=== PATIENT | female | born 1980 | race Caucasian/White ===

== ENCOUNTER 2020-05-23 14:57 | Outpatient (RCR) | payer MEDICAID, SELFPAY ==
--- NOTE | 2020-05-25 14:09 | MHC.PT.DC ---
[facility] [place] Office [place] Office [place] Office [address] Cat Mukherjee [address] [phone] F: [phone] F: [phone] F: [phone] F: [phone] Physical Therapy Discharge Report Diagnosis: Low back pain Date of Surgery: NA Date of Evaluation: 05/10/20 Date of Discharge: 05/25/20 Treatments to Date: 3 Cancellations to Date: 0 No Shows to Date: 1 Discharge Status: Pt called and elected to stop therapy. She did not give any reason for discharge. She was performing home exercise program for her back at the time of discharge. Discharge Summary: EVAL: 39 year old female referred for rheumatoid arthritis involving multiple sites, unspecified rheumatoid factor presence . She reports of having h/o chronic back pain and has had therapy for the same. She has had no skilled nursing improvements with therapy. Pt has returned to therapy as her pain has gotten intense. She denies any trauma or fall. Examination reveals 6/10 pain at rest and 9/10 pain with prolonged bending and supine lying, TTP over L2- L5 spinous and paraspinal region, decreased trunk ROM, decreased muscle strength, and altered posture. She lives her who helps her with IADLS. She is however independent with all BADLs. She is unemployed. She is a good candidate for PT based on age, goals, physical impairments and functional limitations. She would benefit from PT to decrease pain, improve ROM, increase muscle strength, postural correction,and functional training. Please sign and return to therapist. Thank you for your referral.
== END 2020-06-14 10:48 | disposition other institution (70) ==
LOC: HO.PT 14:57
PROVIDERS: Visit Provider Student in an Organized Health Care Education/Training Program
DX: M54.5 Low back pain (principal)
CPT/HCPCS: 97110

== ENCOUNTER → 2020-08-01 13:37 | Outpatient (BNVA) | payer MEDICAID, SELFPAY | PROVIDERS: PCP Internal Medicine; Visit Provider Student in an Organized Health Care Education/Training Program | DX: Z76.89 Persons encountering health services in other specified circumstances (principal) ==

== ENCOUNTER 2020-09-12 08:46 | Outpatient (REF) | payer MEDICAID, SELFPAY ==
[2020-09-12 09:02] LABS: MANUAL DIFF FLAG NO
[2020-09-12 09:11] LABS: Basophils Absolute Auto 0.1 X10*3/uL (0.0-0.2); Basophils Percent Auto 0.5 % (0-2); Eosinophils Absolute Auto 0.8 X10*3/uL (0.0-0.4); Hematocrit 40.5 % (37-47); Hemoglobin 12.6 g/dl (12.0-16.0); Imm Gran Abs Auto 0.02 X10*3/uL (0.00-0.03); Imm Gran Pct Auto 0.2 % (0.0-0.4); Lymphocytes Absolute Auto 2.9 X10*3/uL (1.2-4.9); Lymphocytes Percent Auto 29.8 % (20-40); Mean Corpuscular HGB Conc 31.1 g/dl (31.0-35.0); Mean Corpuscular Volume 83.5 fL (80-98); Mean Platelet Volume 10.8 fL (9.4-12.3); Monocytes Absolute Auto 0.7 X10*3/uL (0.1-1.2); Monocytes Percent Auto 7.2 % (2-11); Neutrophils Absolute Auto 5.2 X10*3/uL (2.0-8.3); Neutrophils Percent Auto 54.3 % (45-73); Platelet Count 311 X10*3/uL (160-400); Red Blood Count 4.85 X10*6/uL (4.20-5.50); Red Cell Distribution Width 14.1 % (11.0-16.0); White Blood Count 9.6 X10*3/uL (4.8-10.8)
[2020-09-12 09:44] LABS: Alanine Aminotransferase 21 U/L (0-31); Albumin Level 4.3 g/dL (3.5-5.0); Alkaline Phosphatase 64 U/L (39-117); Anion Gap 14 (12-20); Bilirubin Total 0.7 mg/dL (0.0-1.0); Blood Urea Nitrogen 10 mg/dL (9-16); C Reactive Protein 0.31 mg/dL (< or = 0.50); Calcium 9.1 mg/dL (8.4-10.2); Carbon Dioxide 21 mmol/L (22-29); Chloride 107 mmol/L (96-108); Estimated Glomerular Filt Rate > 60; Glucose Random 120 mg/dL (60-115); Sodium 138 mmol/L (135-145); Total Protein 8.1 g/dL (6.5-8.0)
[2020-09-12 09:45] LABS: Aspartate Amino Transferase 17 U/L (5-31)
[2020-09-12 10:17] LABS: Erythrocyte Sedimentation Rate 16 MM/HR (0-20)
== END 2020-09-12 08:47 | disposition home or self-care (01) ==
LOC: HO.LAB 08:46
PROVIDERS: PCP Internal Medicine; Visit Provider Student in an Organized Health Care Education/Training Program
DX: M06.00 Rheumatoid arthritis without rheumatoid factor, unspecified site (principal); R76.8 Other specified abnormal immunological findings in serum; Z79.899 Other long term (current) drug therapy
CPT/HCPCS: 36415; 80053; 85025; 85652; 86140

== ENCOUNTER 2020-11-17 15:04 | Outpatient (REF) | payer MEDICAID, SELFPAY ==
[2020-11-17 16:20] LABS: Basophils Absolute Auto 0.1 X10*3/uL (0.0-0.2); Basophils Percent Auto 0.5 % (0-2); Eosinophils Absolute Auto 0.5 X10*3/uL (0.0-0.4); Eosinophils Percent Auto 3.2 % (0-4); Hematocrit 38.2 % (37-47); Hemoglobin 12.2 g/dl (12.0-16.0); Imm Gran Abs Auto 0.07 X10*3/uL (0.00-0.03); Imm Gran Pct Auto 0.5 % (0.0-0.4); Lymphocytes Absolute Auto 4.5 X10*3/uL (1.2-4.9); Lymphocytes Percent Auto 31.6 % (20-40); MANUAL DIFF FLAG NO; Mean Corpuscular HGB Conc 31.9 g/dl (31.0-35.0); Mean Corpuscular Hemoglobin 26.2 pg (27.0-33.0); Mean Corpuscular Volume 82.2 fL (80-98); Mean Platelet Volume 10.8 fL (9.4-12.3); Monocytes Percent Auto 7.3 % (2-11); Neutrophils Absolute Auto 8.1 X10*3/uL (2.0-8.3); Neutrophils Percent Auto 56.9 % (45-73); Platelet Count 357 X10*3/uL (160-400); Red Blood Count 4.65 X10*6/uL (4.20-5.50); Red Cell Distribution Width 14.7 % (11.0-16.0); White Blood Count 14.2 X10*3/uL (4.8-10.8)
[2020-11-17 16:46] LABS: Alanine Aminotransferase 30 U/L (0-31); Albumin Level 4.4 g/dL (3.5-5.0); Alkaline Phosphatase 65 U/L (39-117); Anion Gap 12 (12-20); Aspartate Amino Transferase 21 U/L (5-31); Bilirubin Total 0.7 mg/dL (0.0-1.0); Blood Urea Nitrogen 15 mg/dL (9-16); Calcium 9.4 mg/dL (8.4-10.2); Carbon Dioxide 26 mmol/L (22-29); Chloride 103 mmol/L (96-108); Estimated Glomerular Filt Rate 56; Glucose Random 96 mg/dL (60-115); Potassium 4.8 mmol/L (3.3-5.1); Sodium 136 mmol/L (135-145); Total Protein 8.3 g/dL (6.5-8.0)
[2020-11-17 17:58] LABS: Erythrocyte Sedimentation Rate 11 MM/HR (0-20)
== END 2020-11-17 15:05 | disposition home or self-care (01) ==
LOC: HO.LAB 15:04
PROVIDERS: Visit Provider Student in an Organized Health Care Education/Training Program
DX: M06.00 Rheumatoid arthritis without rheumatoid factor, unspecified site (principal); R76.8 Other specified abnormal immunological findings in serum; Z79.52 Long term (current) use of systemic steroids; Z79.899 Other long term (current) drug therapy
CPT/HCPCS: 36415; 80053; 85025; 85652; 86140; 99212

== ENCOUNTER → 2020-12-20 08:31 | Outpatient (REF) | payer MEDICAID, SELFPAY ==
--- NOTE | ~2020-12-20 | NM_ITS ---
Exercise Myocardial perfusion study Indication: Shortness of breath to evaluate for myocardial ischemia Technique: The patient was brought in for an exercise perfusion study on 12/20/2020. Patient performed exercise as per Darwin protocol and was injected 30 mCi of sestamibi was given intravenously one target HR was achieved. Images were obtained using the SPECT gamma camera interlaced with the gating device. Images were obtained in supine position. Resting perfusion study was performed on 12/21/2020. Patient was administered 30 mCi of sestamibi intravenously at rest. Images were then obtained in supine position. Images were obtained with and without CT attenuation. Total DLP 118 mGy-cm. Images were processed with the software and compared side to side in short axis, horizontal long axis and vertical long axis views. Findings: The stress perfusion study showed non attenuated images show mildly reduced uptake in the anterolateral wall of the LV myocardium. Remainder of the LV myocardium is normally perfused. Attenuation corrected images show normal uptake of radiotracer in all segments of LV myocardium.. The gated study shows normal LV systolic function with calculated LVEF of 61%. LV cavity is normal in size. The gated study shows normal systolic wall thickening and contraction of all segments. There is no transient ischemic dilation. Resting study shows non attenuated images show normal uptake of radiotracer in all segments of LV myocardium. Attenuation corrected images show mildly reduced uptake in the septum and distal anterior wall of the LV myocardium.. Gating at rest reveals normal systolic wall motion with ejection fraction at 53%. The findings are consistent with no clear reversible defect, not attenuated images repeated due to shifting breast attenuation.. NM/NM boston perf SPECT rest & str Impression: 1. Likely normal myocardial perfusion 2. Gated LVEF is 61% 3. Transient ischemic dilatation not present Stress EKG is negative for ischemia
--- NOTE | 2020-12-20 08:30 | CA_ITS ---
Acquisition Time: 2020-12-20 08:53:10 Total Exercise Time: 00:05:30 Test Indications: Dyspnea Medications: SE CHART Protocol: DESMOND Max HR: 164 BPM 92% of Pred: 178 BPM Max BP: 140/080 mmHG Max Work Load: 7.0 METS Exercise stress test with exercise 5 min 30 sec of Desmond protocol with mild sob, no chest discomfort, without arrythmia, with normotensive response to exercise, without EKG changes meeting criteria for ischemia. Nuclear imaes pending. Test reviewed with Dr Colbert. Referred By: Prakash Alvarez Overread By: MIRTA LU
== END ==
LOC: HO.CARD 08:31
PROVIDERS: Visit Provider Internal Medicine Cardiovascular Disease
DX: R06.02 Shortness of breath (principal)
CPT/HCPCS: 78452; 93016; 93017; 93018; A9500

== ENCOUNTER 2021-02-15 09:07 | Outpatient (REF) | payer MEDICAID, SELFPAY ==
--- NOTE | 2021-02-15 | PFT_ITS ---
Forced vital capacity, FEV1, QPO74-91, and MVV are all normal. Post bronchodilator therapy, there is no significant change except for increase in TOD80-34. Total lung capacity and residual volume normal. Diffusion capacity normal. CONCLUSION: Normal pulmonary function tests. There is no evidence of any restrictive or obstructive pulmonary disorder. Accelerated response to bronchodilator as shown by improved [id number] may indicate mild reactive airways or bronchial asthma. For this, clinical correlation is recommended. Nito Stallings MD MSB/MODL / [id number]
== END 2021-02-15 09:08 | disposition home or self-care (01) ==
LOC: HO.RESP 09:07
PROVIDERS: PCP Internal Medicine; Visit Provider Internal Medicine
DX: R06.02 Shortness of breath (principal)
CPT/HCPCS: 94060; 94727; 94729

== ENCOUNTER 2021-02-16 15:00 | Outpatient (REF) | payer MEDICAID, SELFPAY ==
--- NOTE | ~2021-02-16 | XR_ITS ---
EXAMINATION: XR HAND, RIGHT CLINICAL INFORMATION: Rheumatoid arthritis without rheumatoid factor COMPARISON: 10/29/2019 TECHNIQUE: PA, lateral, and oblique views of the right hand. FINDINGS: There is diffuse narrowing throughout the carpus. Moderate radiocarpal joint space narrowing. There is narrowing of the distal radioulnar joint. Small cyst of the third metacarpal head again seen. Cyst in the lunate again noted. No erosions or periostitis seen. Mild osteoarthritis of the second distal interphalangeal joint. Interphalangeal and metacarpophalangeal joint spaces are otherwise maintained. No fracture or dislocation. XR/XR hand RT min 3V IMPRESSION: Similar appearance to the prior study with multifocal degenerative changes.
[2021-02-16 15:53] LABS: MANUAL DIFF FLAG NO
[2021-02-16 15:56] LABS: Basophils Absolute Auto 0.1 X10*3/uL (0.0-0.2); Basophils Percent Auto 0.6 % (0-2); Eosinophils Absolute Auto 0.5 X10*3/uL (0.0-0.4); Eosinophils Percent Auto 4.9 % (0-4); Hematocrit 37.2 % (37-47); Hemoglobin 11.6 g/dl (12.0-16.0); Imm Gran Abs Auto 0.03 X10*3/uL (0.00-0.03); Imm Gran Pct Auto 0.3 % (0.0-0.4); Lymphocytes Absolute Auto 3.3 X10*3/uL (1.2-4.9); Lymphocytes Percent Auto 32.5 % (20-40); Mean Corpuscular HGB Conc 31.2 g/dl (31.0-35.0); Mean Corpuscular Hemoglobin 25.6 pg (27.0-33.0); Mean Corpuscular Volume 81.9 fL (80-98); Mean Platelet Volume 10.2 fL (9.4-12.3); Monocytes Absolute Auto 0.8 X10*3/uL (0.1-1.2); Monocytes Percent Auto 7.4 % (2-11); Neutrophils Absolute Auto 5.6 X10*3/uL (2.0-8.3); Neutrophils Percent Auto 54.3 % (45-73); Platelet Count 337 X10*3/uL (160-400); Red Blood Count 4.54 X10*6/uL (4.20-5.50); Red Cell Distribution Width 14.4 % (11.0-16.0); White Blood Count 10.3 X10*3/uL (4.8-10.8)
[2021-02-16 16:20] LABS: Alanine Aminotransferase 33 U/L (0-31); Albumin Level 4.3 g/dL (3.5-5.0); Alkaline Phosphatase 63 U/L (39-117); Anion Gap 15 (12-20); Aspartate Amino Transferase 23 U/L (5-31); Bilirubin Total 0.6 mg/dL (0.0-1.0); Blood Urea Nitrogen 9 mg/dL (9-16); C Reactive Protein 0.23 mg/dL (< or = 0.50); Calcium 9.8 mg/dL (8.4-10.2); Carbon Dioxide 23 mmol/L (22-29); Chloride 106 mmol/L (96-108); Estimated Glomerular Filt Rate > 60; Glucose Random 99 mg/dL (60-115); Potassium 4.6 mmol/L (3.3-5.1); Sodium 139 mmol/L (135-145); Total Protein 8.1 g/dL (6.5-8.0)
== END 2021-02-16 15:01 | disposition home or self-care (01) ==
LOC: HO.XRAY 15:00
PROVIDERS: PCP Internal Medicine; Visit Provider Student in an Organized Health Care Education/Training Program
DX: M06.00 Rheumatoid arthritis without rheumatoid factor, unspecified site (principal); R76.8 Other specified abnormal immunological findings in serum; Z79.52 Long term (current) use of systemic steroids; Z79.899 Other long term (current) drug therapy
CPT/HCPCS: 36415; 73130; 80053; 85025; 86140; 99212

== ENCOUNTER → 2021-04-18 12:53 | Outpatient (BNVA) | payer MEDICAID, SELFPAY | PROVIDERS: PCP Internal Medicine; Visit Provider Nurse Practitioner Family | DX: M06.00 Rheumatoid arthritis without rheumatoid factor, unspecified site (principal); M54.5 Low back pain; R76.8 Other specified abnormal immunological findings in serum; Z79.899 Other long term (current) drug therapy; Z79.52 Long term (current) use of systemic steroids | CPT/HCPCS: 99212 ==

== ENCOUNTER 2021-05-09 09:44 | Outpatient (REF) | payer MEDICAID, SELFPAY ==
[2021-05-09 10:53] LABS: MANUAL DIFF FLAG NO
[2021-05-09 11:00] LABS: Basophils Absolute Auto 0.1 X10*3/uL (0.0-0.2); Basophils Percent Auto 0.6 % (0-2); Eosinophils Absolute Auto 0.4 X10*3/uL (0.0-0.4); Eosinophils Percent Auto 3.6 % (0-4); Hematocrit 37.7 % (37-47); Hemoglobin 11.8 g/dl (12.0-16.0); Imm Gran Abs Auto 0.03 X10*3/uL (0.00-0.03); Imm Gran Pct Auto 0.3 % (0.0-0.4); Lymphocytes Absolute Auto 3.1 X10*3/uL (1.2-4.9); Lymphocytes Percent Auto 30.6 % (20-40); Mean Corpuscular HGB Conc 31.3 g/dl (31.0-35.0); Mean Corpuscular Hemoglobin 25.4 pg (27.0-33.0); Mean Corpuscular Volume 81.1 fL (80-98); Mean Platelet Volume 10.5 fL (9.4-12.3); Monocytes Absolute Auto 0.7 X10*3/uL (0.1-1.2); Monocytes Percent Auto 6.7 % (2-11); Neutrophils Percent Auto 58.2 % (45-73); Platelet Count 326 X10*3/uL (160-400); Red Blood Count 4.65 X10*6/uL (4.20-5.50); Red Cell Distribution Width 14.6 % (11.0-16.0); White Blood Count 10.3 X10*3/uL (4.8-10.8)
[2021-05-09 11:22] LABS: Alanine Aminotransferase 36 U/L (0-31); Albumin Level 4.3 g/dL (3.5-5.0); Alkaline Phosphatase 65 U/L (39-117); Anion Gap 13 (12-20); Aspartate Amino Transferase 22 U/L (5-31); Bilirubin Total 0.5 mg/dL (0.0-1.0); Blood Urea Nitrogen 7 mg/dL (9-16); C Reactive Protein 0.25 mg/dL (< or = 0.50); Calcium 9.8 mg/dL (8.4-10.2); Carbon Dioxide 24 mmol/L (22-29); Chloride 104 mmol/L (96-108); Estimated Glomerular Filt Rate > 60; Glucose Random 114 mg/dL (60-115); Potassium 4.2 mmol/L (3.3-5.1); Sodium 137 mmol/L (135-145); Total Protein 7.9 g/dL (6.5-8.0)
[2021-05-09 11:47] LABS: Erythrocyte Sedimentation Rate 13 MM/HR (0-20)
== END 2021-05-09 09:45 | disposition home or self-care (01) ==
LOC: HO.LAB 09:44
PROVIDERS: PCP Internal Medicine; Visit Provider Nurse Practitioner Family
DX: M06.00 Rheumatoid arthritis without rheumatoid factor, unspecified site (principal)
CPT/HCPCS: 36415; 80053; 85025; 85652; 86140

== ENCOUNTER → 2022-08-27 09:04 | Outpatient (BNVA) | payer MEDICAID, SELFPAY | PROVIDERS: PCP Internal Medicine; Visit Provider Nurse Practitioner Family | DX: M06.00 Rheumatoid arthritis without rheumatoid factor, unspecified site (principal); R76.8 Other specified abnormal immunological findings in serum; G89.29 Other chronic pain; M54.50 Low back pain, unspecified; Z79.899 Other long term (current) drug therapy | CPT/HCPCS: 36415; 80053; 85025; 85652; 86140; 99202 ==

== ENCOUNTER 2022-08-27 10:34 | Outpatient (REF) | payer MEDICAID, SELFPAY ==
[2022-08-27 13:50] LABS: MANUAL DIFF FLAG NO
[2022-08-27 14:04] LABS: Basophils Absolute Auto 0.1 X10*3/uL (0.0-0.2); Basophils Percent Auto 0.8 % (0-2); Eosinophils Absolute Auto 0.8 X10*3/uL (0.0-0.4); Eosinophils Percent Auto 8.8 % (0-4); Hematocrit 40.3 % (37.0-47.0); Hemoglobin 12.2 g/dl (12.0-16.0); Imm Gran Abs Auto 0.03 X10*3/uL (0.00-0.03); Imm Gran Pct Auto 0.3 % (0.0-0.4); Lymphocytes Percent Auto 33.2 % (20-40); Mean Corpuscular HGB Conc 30.3 g/dl (31.0-35.0); Mean Corpuscular Hemoglobin 24.4 pg (27.0-33.0); Mean Corpuscular Volume 80.8 fL (80.0-98.0); Mean Platelet Volume 13.8 fL (9.4-12.3); Monocytes Absolute Auto 0.6 X10*3/uL (0.1-1.2); Monocytes Percent Auto 6.7 % (2-11); Neutrophils Absolute Auto 4.5 x10*3/uL (2.0-8.3); Neutrophils Percent Auto 50.2 % (45-73); Platelet Count 291 X10*3/uL (160-400); Red Blood Count 4.99 X10*6/uL (4.20-5.50); Red Cell Distribution Width 15.5 % (11.0-16.0)
[2022-08-27 14:24] LABS: Alanine Aminotransferase 30 U/L (0-31); Albumin Level 4.2 g/dL (3.5-5.0); Alkaline Phosphatase 63 U/L (39-117); Anion Gap 13 (12-20); Aspartate Amino Transferase 25 U/L (5-31); Bilirubin Total 0.4 mg/dL (0.0-1.0); Blood Urea Nitrogen 10 mg/dL (9-16); C Reactive Protein 0.17 mg/dL (< or = 0.50); Carbon Dioxide 23 mmol/L (22-29); Chloride 107 mmol/L (96-108); Estimated Glomerular Filt Rate > 60; Glucose Random 90 mg/dL (60-115); Potassium 4.4 mmol/L (3.3-5.1); Sodium 139 mmol/L (135-145)
[2022-08-27 14:42] LABS: Erythrocyte Sedimentation Rate 16 MM/HR (0-20)
== END 2022-08-27 10:35 | disposition home or self-care (01) ==
LOC: HO.10HDL 10:34
PROVIDERS: Visit Provider Nurse Practitioner Family
DX: M06.00 Rheumatoid arthritis without rheumatoid factor, unspecified site (principal); M54.50 Low back pain, unspecified; R76.8 Other specified abnormal immunological findings in serum
CPT/HCPCS: 36415; 80053; 85025; 85652; 86140

== ENCOUNTER 2022-09-10 09:10 | Outpatient (REF) | payer MEDICAID, SELFPAY ==
--- NOTE | ~2022-09-10 | XR_ITS ---
EXAMINATION: XR LUMBOSACRAL SPINE CLINICAL INFORMATION: Low back pain COMPARISON: None TECHNIQUE: Three views of the lumbosacral spine. FINDINGS: There is normal lumbar lordosis. The vertebral heights, alignment and disc heights are normal. No visible acute fracture, dislocation or subluxation seen. No lytic or sclerotic process seen. SI joints are symmetrical and normal. XR/XR lumbar spine 2-3V IMPRESSION: Unremarkable lumbar spine exam.
== END 2022-09-10 09:11 | disposition home or self-care (01) ==
LOC: HO.XRAY 09:10
PROVIDERS: PCP Internal Medicine; Visit Provider Nurse Practitioner Family
DX: M54.50 Low back pain, unspecified (principal)
CPT/HCPCS: 72100

== ENCOUNTER → 2022-10-23 13:54 | Outpatient (BNVA) | payer MEDICAID, SELFPAY | PROVIDERS: PCP Internal Medicine; Visit Provider Nurse Practitioner Family | DX: M06.00 Rheumatoid arthritis without rheumatoid factor, unspecified site (principal); M54.50 Low back pain, unspecified; Z79.899 Other long term (current) drug therapy | CPT/HCPCS: 99212 ==

== ENCOUNTER 2022-10-30 10:05 | Outpatient (REF) | payer MEDICAID, SELFPAY ==
[2022-10-30 11:28] LABS: Alanine Aminotransferase 27 U/L (0-31); Albumin Level 4.1 g/dL (3.5-5.0); Alkaline Phosphatase 69 U/L (39-117); Anion Gap 11 (12-20); Aspartate Amino Transferase 22 U/L (5-31); Bilirubin Total 0.5 mg/dL (0.0-1.0); Blood Urea Nitrogen 7 mg/dL (9-16); Calcium 9.1 mg/dL (8.4-10.2); Carbon Dioxide 26 mmol/L (22-29); Chloride 105 mmol/L (96-108); Estimated Glomerular Filt Rate > 60; Glucose Random 122 mg/dL (60-115); Potassium 4.1 mmol/L (3.3-5.1); Sodium 138 mmol/L (135-145); Total Protein 7.8 g/dL (6.5-8.0)
[2022-10-30 11:40] LABS: HBc Num1 0.22 S/CO (0.00-0.79); HBsAGNum1 0.29 S/CO (0.00-0.99); Hepatitis B Core Antibody Nonreactive (Nonreactive); Hepatitis B Surface Antigen Negative (Negative); ~HepC Num1 0.14 S/CO (0.00-0.79); ~Hepatitis A Antibody IgM Nonreactive (Nonreactive); ~Hepatitis B Surface Antibody NONREACTIVE (Nonreactive); ~Hepatitis C Antibody Nonreactive (Nonreactive)
[2022-11-01 17:13] LABS: TS Negative Control Passed; TS Panel A 0; TS Panel B 0; TS Positive Control Passed; TSpotTB Negative (Negative)
== END 2022-10-30 10:06 | disposition home or self-care (01) ==
LOC: HO.LAB 10:05
PROVIDERS: PCP Internal Medicine; Visit Provider Nurse Practitioner Family
DX: Z11.1 Encounter for screening for respiratory tuberculosis (principal); M06.00 Rheumatoid arthritis without rheumatoid factor, unspecified site
CPT/HCPCS: 36415; 80053; 86481; 86704; 86706; 86709; 86803; 87340

== ENCOUNTER 2022-12-05 10:25 | Outpatient (REF) | payer MEDICAID, SELFPAY ==
[2022-12-05 10:36] LABS: MANUAL DIFF FLAG NO
[2022-12-05 10:55] LABS: Basophils Absolute Auto 0.1 X10*3/uL (0.0-0.2); Basophils Percent Auto 0.7 % (0-2); Eosinophils Absolute Auto 0.7 X10*3/uL (0.0-0.4); Eosinophils Percent Auto 8.2 % (0-4); Hematocrit 38.5 % (37.0-47.0); Hemoglobin 11.8 g/dl (12.0-16.0); Imm Gran Abs Auto 0.03 X10*3/uL (0.00-0.03); Imm Gran Pct Auto 0.4 % (0.0-0.4); Lymphocytes Percent Auto 35.4 % (20-40); Mean Corpuscular HGB Conc 30.6 g/dl (31.0-35.0); Mean Corpuscular Hemoglobin 24.4 pg (27.0-33.0); Mean Corpuscular Volume 79.5 fL (80.0-98.0); Mean Platelet Volume 10.8 fL (9.4-12.3); Monocytes Absolute Auto 0.6 X10*3/uL (0.1-1.2); Monocytes Percent Auto 7.5 % (2-11); Neutrophils Percent Auto 47.8 % (45-73); Platelet Count 335 X10*3/uL (160-400); Red Blood Count 4.84 X10*6/uL (4.20-5.50); Red Cell Distribution Width 14.8 % (11.0-16.0); White Blood Count 8.4 X10*3/uL (4.8-10.8)
[2022-12-05 11:30] LABS: Alanine Aminotransferase 27 U/L (0-31); Aspartate Amino Transferase 20 U/L (5-31); C Reactive Protein 0.22 mg/dL (< or = 0.50); Estimated Glomerular Filt Rate > 60
[2022-12-05 11:47] LABS: Erythrocyte Sedimentation Rate 16 MM/HR (0-20)
== END 2022-12-05 10:26 | disposition home or self-care (01) ==
LOC: HO.LAB 10:25
PROVIDERS: PCP Internal Medicine; Visit Provider Nurse Practitioner Family
DX: M06.00 Rheumatoid arthritis without rheumatoid factor, unspecified site (principal); Z79.899 Other long term (current) drug therapy
CPT/HCPCS: 36415; 82565; 84450; 84460; 85025; 85652; 86140

== ENCOUNTER → 2023-01-28 08:51 | Outpatient (BNVA) | payer MEDICAID, SELFPAY | PROVIDERS: PCP Internal Medicine; Visit Provider Internal Medicine Rheumatology | DX: M06.00 Rheumatoid arthritis without rheumatoid factor, unspecified site (principal); Z79.899 Other long term (current) drug therapy | CPT/HCPCS: 99212 ==

== ENCOUNTER 2023-01-28 09:34 | Outpatient (REF) | payer MEDICAID, SELFPAY ==
[2023-01-28 11:05] LABS: MANUAL DIFF FLAG NO
[2023-01-28 11:09] LABS: Basophils Absolute Auto 0.1 X10*3/uL (0.0-0.2); Basophils Percent Auto 0.9 % (0-2); Eosinophils Absolute Auto 0.4 X10*3/uL (0.0-0.4); Eosinophils Percent Auto 4.4 % (0-4); Hematocrit 36.2 % (37.0-47.0); Hemoglobin 11.3 g/dl (12.0-16.0); Imm Gran Abs Auto 0.02 X10*3/uL (0.00-0.03); Imm Gran Pct Auto 0.2 % (0.0-0.4); Lymphocytes Absolute Auto 2.6 X10*3/uL (1.2-4.9); Lymphocytes Percent Auto 32.8 % (20-40); Mean Corpuscular HGB Conc 31.2 g/dl (31.0-35.0); Mean Corpuscular Hemoglobin 24.7 pg (27.0-33.0); Mean Corpuscular Volume 79.2 fL (80.0-98.0); Mean Platelet Volume 12.4 fL (9.4-12.3); Monocytes Absolute Auto 0.6 X10*3/uL (0.1-1.2); Monocytes Percent Auto 7.5 % (2-11); Neutrophils Absolute Auto 4.4 x10*3/uL (2.0-8.3); Neutrophils Percent Auto 54.2 % (45-73); Platelet Count 334 X10*3/uL (160-400); Red Blood Count 4.57 X10*6/uL (4.20-5.50); Red Cell Distribution Width 15.9 % (11.0-16.0)
[2023-01-28 11:23] LABS: Alanine Aminotransferase 26 U/L (0-31); Aspartate Amino Transferase 20 U/L (5-31); C Reactive Protein 0.15 mg/dL (< or = 0.50); Estimated Glomerular Filt Rate > 60
[2023-01-28 11:52] LABS: Erythrocyte Sedimentation Rate 13 MM/HR (0-20)
== END 2023-01-28 09:35 | disposition home or self-care (01) ==
LOC: HO.10HDL 09:34
PROVIDERS: Visit Provider Internal Medicine Rheumatology
DX: M06.00 Rheumatoid arthritis without rheumatoid factor, unspecified site (principal); Z79.899 Other long term (current) drug therapy
CPT/HCPCS: 36415; 82565; 84450; 84460; 85025; 85652; 86140

== ENCOUNTER 2023-02-20 12:38 | Outpatient (REF) | payer MEDICAID, SELFPAY | END 2023-02-20 12:39 | disposition home or self-care (01) | LOC: HO.MRI 12:38 | PROVIDERS: PCP Internal Medicine; Visit Provider Internal Medicine | DX: M54.50 Low back pain, unspecified (principal) | CPT/HCPCS: 72148 ==

== ENCOUNTER 2023-02-24 09:18 | Outpatient (REF) | payer MEDICAID, SELFPAY ==
--- NOTE | ~2023-02-24 | MM_ITS ---
EXAMINATION: MM SCREENING DIGITAL BREAST TOMOSYNTHESIS, BILATERAL CLINICAL INFORMATION: Screening. Asymptomatic. The lifetime risk of breast cancer based on the Tyrer-Cuzick Model is 10.6%. COMPARISON: Mammography: This study is compared with prior exams dating back to 2019. TECHNIQUE: Digital breast tomosynthesis is performed in both the craniocaudal and mediolateral oblique views along with computer-aided detection (CAD). Synthesized 2D images are generated from the tomosynthesis. FINDINGS: There are scattered areas of fibroglandular density (ACR BI-RADS breast composition Category b). There are no significant masses, abnormal calcifications, or other abnormalities. MM/MM tomosynthesis screening BI IMPRESSION: No mammographic evidence of malignancy. ASSESSMENT: BI-RADS BI-RADS 1 - Negative RECOMMENDATION: Routine annual mammography screening. 1 year F/U This examination should not preclude the clinical evaluation of a suspicious palpable abnormality. This patient's information was entered into a reminder system with a target due date for their next mammogram.
== END 2023-02-24 09:19 | disposition home or self-care (01) ==
LOC: HO.MAMMO 09:18
PROVIDERS: PCP Internal Medicine; Visit Provider Internal Medicine
DX: Z12.31 Encounter for screening mammogram for malignant neoplasm of breast (principal)
CPT/HCPCS: 77063; 77067

== ENCOUNTER → 2023-02-24 09:30 | Outpatient (BNV) | payer MEDICAID, SELFPAY | PROVIDERS: PCP Internal Medicine; Visit Provider Radiology Diagnostic Radiology | DX: Z12.31 Encounter for screening mammogram for malignant neoplasm of breast (principal) | CPT/HCPCS: 77063; 77067 ==

== ENCOUNTER 2023-05-30 09:38 | Outpatient (REF) | payer MEDICAID, SELFPAY ==
[2023-05-30 11:45] LABS: MANUAL DIFF FLAG NO
[2023-05-30 11:56] LABS: Basophils Absolute Auto 0.1 X10*3/uL (0.0-0.2); Basophils Percent Auto 0.7 % (0-2); Eosinophils Absolute Auto 0.4 X10*3/uL (0.0-0.4); Eosinophils Percent Auto 5.5 % (0-4); Hematocrit 36.3 % (37.0-47.0); Hemoglobin 10.9 g/dl (12.0-16.0); Imm Gran Abs Auto 0.02 X10*3/uL (0.00-0.03); Imm Gran Pct Auto 0.3 % (0.0-0.4); Lymphocytes Absolute Auto 2.7 X10*3/uL (1.2-4.9); Lymphocytes Percent Auto 37.3 % (20-40); Mean Corpuscular Hemoglobin 23.6 pg (27.0-33.0); Mean Corpuscular Volume 78.6 fL (80.0-98.0); Mean Platelet Volume 12.7 fL (9.4-12.3); Monocytes Absolute Auto 0.5 X10*3/uL (0.1-1.2); Monocytes Percent Auto 7.4 % (2-11); Neutrophils Absolute Auto 3.5 x10*3/uL (2.0-8.3); Neutrophils Percent Auto 48.8 % (45-73); Platelet Count 315 X10*3/uL (160-400); Red Blood Count 4.62 X10*6/uL (4.20-5.50); Red Cell Distribution Width 15.4 % (11.0-16.0); White Blood Count 7.2 X10*3/uL (4.8-10.8)
[2023-05-30 12:16] LABS: C Reactive Protein 0.13 mg/dL (< or = 0.50)
[2023-05-30 12:42] LABS: Erythrocyte Sedimentation Rate 12 MM/HR (0-20)
== END 2023-05-30 09:39 | disposition home or self-care (01) ==
LOC: HO.10HDL 09:38
PROVIDERS: Visit Provider Internal Medicine Rheumatology
DX: M06.00 Rheumatoid arthritis without rheumatoid factor, unspecified site (principal); Z79.899 Other long term (current) drug therapy
CPT/HCPCS: 36415; 85025; 85652; 86140

== ENCOUNTER 2023-06-02 09:22 | Outpatient (AMB) | payer MEDICAID, SELFPAY ==
--- NOTE | 2023-06-02 09:31 | MHC.OFFVIS ---
Intake Vital Signs 06/02/23 09:32 Height 4 ft 11 in Weight 179 lb 14.355 oz BMI 36.3 BP 140/80 H Blood Pressure Location Rt brachial Position Sitting Pulse 78 Pulse Source Pulse Oximeter Temp 98.1 F Temp Source Skin Pulse Oximetry (%) 96 Oxygen Delivery Method Room Air Intake Visit Reasons: ra Intake Note: Patient presents today to follow up on RA. 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 Name: Bi Morgan Information Interpreted: clinical only Accompanied by: Self / Same As Patient Allergies gabapentin Adverse Reaction (Intermediate, Verified 06/02/23 09:37) Gastrointestinal Upset Medication List - Last Reconciled 06/02/23 by Nate Boyer MD alcohol swabs (Alcohol Prep Pads) 0 pad topical BID amitriptyline 10 mg PO BEDTIME atorvastatin 40 mg PO BEDTIME baclofen 10 mg PO BID blood sugar diagnostic (FreeStyle Lite Strips) As directed cholecalciferol (vitamin D3) (Vitamin D3) 50 mcg PO QPM etanercept (Enbrel SureClick) 50 mg subcut QWEEK ferrous sulfate (FeroSul) 325 mg PO QAM fluticasone propionate 110 mcg/actuation (Flovent HFA) 2 puffs inhalation BID folic acid 1 mg PO QAM hydrochlorothiazide 25 mg PO QAM hydroxychloroquine 200 mg PO QAM hydroxyzine HCl 50 mg PO lidocaine 5% (Lidoderm) 0 patches topical metformin 500 mg PO BID methotrexate sodium 20 mg (8 x 2.5 mg) PO QWEEK omeprazole 40 mg PO QAM venlafaxine ER 75 mg PO QAM HPI HPI Comments History of Present Illness Details The patient returns for evaluation of her rheumatoid arthritis. She remains on hydroxychloroquine 200 mg twice a day, folic acid 1 mg daily, methotrexate 20 mg weekly and Enbrel 50 mg weekly. In general the joints are doing fairly well but there still is intermittent pain in the hands, mostly across the PIP regions, the knees, and the lower back. She also takes some amitriptyline at night, baclofen during the day if needed, lidocaine patches, and venlafaxine. She has some iron deficiency anemia but is on iron. She was evaluated for this by her PCP and they think it is due to extra heavy bleeding during menses. [facility] Medical History (Updated 06/02/23 @ 18:25 by Nate Boyer MD) PERRY positive Seronegative rheumatoid arthritis Surgical History Hx of tubal ligation Family History Father Diabetes Rheumatoid arthritis CVD (cardiovascular disease) Mother Diabetes Pulmonary embolism Social History Household Members: Other Household Members Other:: daughter Housing: Apartment Alcohol intake: current Patient Tobacco Use Status: Never used Tobacco Review of Systems Const Details: Negative for appetite change, weight change, fever, chills, malaise and fatigue Eyes Details: Negative for vision change, dry eyes,headaches and dizziness Card Details: Negative chest pain, edema and syncope Resp Details: Negative for SOB, cough and wheezing GI Details: Negative indigestion/heartburn, nausea, abdominal pain, bowel changes, diarrhea, constipation and bloody stool. Details: Prolonged menses with bleeding. Negative for dysuria, hematuria, nocturia, decreased force/flow and genital discharge Gibson/Lymph Details: Negative for excessive bruising or bleeding. Physical Exam Vital Signs: Last Vital Signs Temp 98.1 F 06/02/23 09:32 Pulse 78 06/02/23 09:32 BP 140/80 H 06/02/23 09:32 Pulse Ox 96 06/02/23 09:32 Oxygen Delivery Method Room Air 06/02/23 09:32 BMI result Body Mass Index 36.3 APPEARANCE: Patient in no acute distress EXTREMITIES: No edema, no calf tenderness, normal peripheral pulses. JOINT EXAM: ?? Cervical Spine:? Full range of motion without pain; no tenderness. Thoracic Spine:? No scoliosis.? No tenderness on palpation. Lumbar Spine:? Alignment normal.? Full range of motion with mild pain at the extremes.? Tenderness to palpation of the lumbar spine and lumbar spinal muscles. Hands: Right: Pain-free range of motion but there is mild tenderness across the MCP and PIP regions. No flexor tendon triggering, soft tissue swelling, thenar atrophy, sensory loss redness, or warmth. Left: Normal pain-free range of motion with some mild tenderness at the 4th and 5th MCPs but no swelling is appreciated. Elsewhere there is no out tenderness, swelling, increased warmth or erythema. Wrists:? LEFT: Mild pain with flexion or extension at 75 degrees with some slight dorsal tenderness but no swelling, increased warmth or erythema. ? RIGHT:? Mild pain with flexion or extension at 80 degrees.? Slight tenderness to palpation in the center of the wrist.? No swelling, increased warmth or erythema. Elbows: Normal pain-free range of motion without tenderness, swelling, increased warmth or erythema. Shoulders:? Full range of motion without pain. No tenderness, weakness, swelling, increased warmth or erythema. Hips:? Full range of motion with some lumbar pain with extremes of abduction, internal rotation or external rotation. No groin pain with motion. Hip bursa:? No tenderness. Knees:?? Normal pain-free range of motion with mild pain at the extremes. She has some valgus deformity in the knees on both sides. There is some slight medial compartment tenderness bilaterally with some minimal patellofemoral crepitus on the left. No effusions, soft tissue swelling, popliteal tenderness, increased warmth or erythema.? Ankles: Normal pain-free range of motion without tenderness, swelling, increased warmth or erythema. Feet:?Normal pain-free range of motion without tenderness, swelling, increased warmth or erythema. Tender points:? Mild tenderness to digital palpation at the trapezius, second rib, lateral epicondyle, gluteal area bilaterally. ? Results Reviewed Results Reviewed: Laboratory Tests 01/28/23 01/28/23 05/30/23 09:40 09:40 09:35 WBC Hgb ESR 12 Creatinine 0.79 AST 20 ALT 26 C-Reactive Protein 0.15 05/30/23 05/30/23 09:35 09:45 WBC 7.2 Hgb 10.9 L ESR Creatinine AST ALT C-Reactive Protein 0.13 Assessment & Plan Assessment & Plan (1) skilled nursing methotrexate user: Code(s): Z79.899 - Other detention (current) drug therapy (2) Osteoarthritis of lumbar spine: Code(s): M47.816 - Spondylosis without myelopathy or radiculopathy, lumbar region (3) Seronegative rheumatoid arthritis: Comment: Methotrexate: Since 2011. 11/2019 6 tabs, increased to 8 tabs 01/2020- present Humira: 04/2020 - 11/2020 active synovitis on exam Enbrel: 11/2020- present Plaquenil- 2019- present, eye exam 09/09 Code(s): M06.00 - Rheumatoid arthritis without rheumatoid factor, unspecified site Plan Rheumatoid arthritis with I think good control of synovitis with current treatment. She does have a number of tender points so could have some element of fibromyalgia as well. Her back symptoms are fro lumbar OA. She has some valgus deformity in the knees which could predispose her to osteoarthritis of the knees in the future. I encouraged her to pursue some efforts with weight reduction to try to minimize that possibility. She seems to be tolerating the methotrexate as the lab work looks good. She has also had an eye exam earlier this year so I think she could continue her hydroxycloroquine as above. Another set of lab work would be recommended for July and September. We will arrange for follow-up in Rheumatology in 4 months. 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 Erythrocyte Sedimentation Rate 1 Month M06.00 - Rheumatoid arthritis without rheumatoid factor, unspecified site Erythrocyte Sedimentation Rate Today M06.00 - Rheumatoid arthritis without rheumatoid factor, unspecified site C Reactive Protein Today M06.00 - Rheumatoid arthritis without rheumatoid factor, unspecified site Alanine Aminotransferase Today M06.00 - Rheumatoid arthritis without rheumatoid factor, unspecified site, Z79.899 - Other detention (current) drug therapy Complete Blood Count Auto Diff Today M06.00 - Rheumatoid arthritis without rheumatoid factor, unspecified site, Z79.899 - Other 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 school teacher (current) drug therapy Alanine Aminotransferase 1 Month M06.00 - Rheumatoid arthritis without rheumatoid factor, unspecified site, Z79.899 - Other 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 school teacher (current) drug therapy Aspartate Amino Transferase 1 Month M06.00 - Rheumatoid arthritis without rheumatoid factor, unspecified site, Z79.899 - Other 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 school teacher (current) drug therapy C Reactive Protein 1 Month M06.00 - Rheumatoid arthritis without rheumatoid factor, unspecified site Complete Blood Count Auto Diff 1 Month M06.00 - Rheumatoid arthritis without rheumatoid factor, unspecified site, Z79.899 - Other 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 school teacher (current) drug therapy Creatinine 1 Month M06.00 - Rheumatoid arthritis without rheumatoid factor, unspecified site, Z79.899 - Other 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 school teacher (current) drug therapy Coding Level of Care Code Est Pt Level 3 (52203) Diagnoses skilled nursing methotrexate user Z79.899 Osteoarthritis of lumbar spine M47.816 Seronegative rheumatoid arthritis M06.00
[2023-06-02 09:32] VITALS: BP 140/80; PULSE 78; TEMP 36.7; O2SAT 96; BMI 36.3
== END 2023-06-02 09:54 | disposition home or self-care (01) ==
PROVIDERS: PCP Internal Medicine; Visit Provider Internal Medicine Rheumatology
DX: Z79.899 Other long term (current) drug therapy (principal); M47.816 Spondylosis without myelopathy or radiculopathy, lumbar region; M06.00 Rheumatoid arthritis without rheumatoid factor, unspecified site
CPT/HCPCS: 99213

== ENCOUNTER → 2023-06-02 09:22 | Outpatient (BNVA) | payer MEDICAID, SELFPAY | PROVIDERS: PCP Internal Medicine; Visit Provider Internal Medicine Rheumatology | DX: M06.00 Rheumatoid arthritis without rheumatoid factor, unspecified site (principal); M47.816 Spondylosis without myelopathy or radiculopathy, lumbar region; Z79.899 Other long term (current) drug therapy | CPT/HCPCS: 99212 ==

== ENCOUNTER 2023-07-02 10:30 | Outpatient (REF) | payer MEDICAID, SELFPAY ==
[2023-07-02 12:17] LABS: Cholesterol 141 mg/dL (<200); HDL Cholesterol 34 mg/dL (>40); LDL Cholesterol Calculated 88 mg/dL (<100); Triglycerides 95 mg/dL (<150)
[2023-07-02 12:24] LABS: Creatinine Urine 69.16 mg/dL; Microalbumin Urine < 5.0 mg/L
== END 2023-07-02 10:31 | disposition home or self-care (01) ==
LOC: HO.HHCL 10:30
PROVIDERS: Visit Provider Internal Medicine
DX: E11.9 Type 2 diabetes mellitus without complications (principal)
CPT/HCPCS: 36415; 80061; 82043; 82570

== ENCOUNTER 2023-07-07 08:55 | Outpatient (REF) | payer MEDICAID, SELFPAY ==
--- NOTE | ~2023-07-07 | XR_ITS ---
EXAMINATION: XR HAND, LEFT CLINICAL INFORMATION: Pain for 2 weeks, no injury. COMPARISON: 10/29/2019 TECHNIQUE: PA, lateral, and oblique views of the left hand. FINDINGS: Moderate degenerative changes in the first carpometacarpal joint with joint space narrowing and hypertrophic change. Diffuse narrowing of the radiocarpal joint with subchondral cyst and possible erosion of the ulnar styloid. Moderate degenerative change in scattered IP joints with joint space narrowing and hypertrophic change most notable in the second and fifth DIP joints. XR/XR hand LT min 3V IMPRESSION: Degenerative changes. No displaced fracture. Recommend follow-up imaging in 10-14 days if fracture is suspected.
== END 2023-07-07 08:56 | disposition home or self-care (01) ==
LOC: HO.HHCX 08:55
PROVIDERS: Visit Provider Internal Medicine
DX: M79.642 Pain in left hand (principal)
CPT/HCPCS: 73130

== ENCOUNTER 2023-07-15 10:40 | Outpatient (AMB) | payer MEDICAID, SELFPAY ==
[2023-07-15 11:19] VITALS: BMI 36.1
--- NOTE | 2023-07-15 11:19 | MHC.OFFVIS ---
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 States she feels like she has a small lump at base of finger. States her finger begin to lock approx 5 months ago. States its rarely locks bit when it does it is very painful. Patient is experiencing numbness and tingling in both her hands that worsen at night time. No EMG done.. Right > left. Also states has hx of RA and DM. She is not sure of her A1C. 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 She complains of pain primarily at the base of her left middle finger, along with a lump . She also says her middle finger locks rarely, but is very painful when it does. She also complains of bilateral hand numbness. She has RA and Diabetes. She follows with Rheumatology and is on methotrexate. 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 Review of Systems Const All systems reviewed & are unremarkable except as noted in HPI and below Physical Exam Vital Signs: BMI result Body Mass Index 36.1 Const General: cooperative, healthy appearing and no acute distress Orientation/consciousness: patient oriented x3 HEENT Head: Yes normocephalic and Yes atraumatic Eyes EOM: EOMs intact bilaterally Resp Effort & Inspection: normal respiratory effort and able to speak in complete sentences Cardio Jugular venous distension: no JVD Skin General skin exam: turgor normal Rashes: no rashes Neuro General: patient oriented x3 Extrem Other: Evaluation of Left Upper Extremity: The patient is alert, oriented, and in no acute distress Neuro: Median, Ulnar, Radial nerves motor and sensory grossly intact No thenar or intrinsic wasting Vascular: Cap refill brisk ROM: She can make a fist and extend all her digits No locking or catching Skin: No lacerations or abrasions. General: No Ecchymosis. No Erythema or evidence of infection. She has a small mass, consistent with a retinacular cyst, at the palmar digital crease of the left middle finger, directly over the flexor tendon sheath This measures ~2-3mm and is non-mobile Radiographs: 3 views of the left hand from 07/07/23 were reviewed by me today in clinic. They show some Basal joint OA, diffuse narrowing of the radiocarpal & midcarpal joints, and mild OA changes in multiple DIP joints. Psych Appearance: grossly normal Affect: normal affect Attitude: cooperative Office Procedures Fracture Care Details: No fracture, aspiration of ganglion Fracture Billing Code: Fracture Billing Code Assessment & Plan Assessment & Plan (1) Retinacular ganglion, volar (VRG): Code(s): M67.40 - Ganglion, unspecified site Plan Assessment & Plan: 1. Left middle finger retinacular cyst Measuring ~2-3mm in diameter Over the flexor tendon sheath I educated her about this condition I discussed operative and non-operative treatment options The patient would like to proceed with an aspiration Aspiration #1: The risks and benefits of aspiration, including but not limited to risk of damage to blood vessels, nerves, tendons, infection, failure to improve symptoms, increased pain, and possible need for further aspirations or surgical intervention. After obtaining written consent, I sterilely prepped the area over the left middle finger flexor tendon sheath at the palmar digital crease. I then injected subcutaneously with a small amount 1% lidocaine. I then passed an 27 gauge needle into the ganglion and aspirated some clear viscous fluid consistent with a ganglion. Some remaining viscous fluid was then pushed out of the ganglion. The patient tolerated this well and with no complications and we both agreed that the ganglion was no longer palpable. . 2. Bilateral hand numbness Symptoms intermittent I educated her about carpal & cubital tunnel syndrome I ordered a NCS to assess for peripheral nerve compression She will follow up when completed for review 3. Left Basal joint OA No complaints today Scribed for Estefani Alicea MD by Skinny Samson, health care / medical job titles, on 07/15/23 at 11:45 AM, EST. Orders: Orders NE nerve conduction velocity Today R20.0 - Anesthesia of skin, R20.2 - Paresthesia of skin Coding Level of Care Code New Pt Level 3 (10978) Diagnoses Retinacular ganglion, volar (VRG) M67.40 CPT Codes Fracture Care - Fracture Billing Code: Fracture Billing Code ([id number])
== END 2023-07-15 11:57 | disposition home or self-care (01) ==
PROVIDERS: PCP Internal Medicine; Visit Provider Orthopaedic Surgery
DX: M67.442 Ganglion, left hand (principal)
CPT/HCPCS: 20612; 99204

== ENCOUNTER → 2023-07-15 10:40 | Outpatient (BNVA) | payer MEDICAID, SELFPAY | PROVIDERS: PCP Internal Medicine; Visit Provider Orthopaedic Surgery | DX: M67.40 Ganglion, unspecified site (principal) | CPT/HCPCS: 20612; 99202 ==

== ENCOUNTER 2023-10-07 08:36 | Outpatient (AMB) | payer MEDICAID, SELFPAY ==
--- NOTE | 2023-10-07 08:42 | A.OFFVIS_ITS ---
Intake Vital Signs 10/07/23 08:46 BP 120/72 Blood Pressure Location Rt brachial Position Sitting Pulse 79 Pulse Source Pulse Oximeter Temp 97.4 F Temp Source Skin Pulse Oximetry (%) 99 Oxygen Delivery Method Room Air Intake Visit Reasons: ra Intake Note: Patient last seen 06/02/23, presents today for RA follow up and test results. 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 Bergeron, 42 yoF returns for follow-up of her Seronegative rheumatoid arthritis and OA. She remains on hydroxychloroquine 200 mg twice a day, folic acid 1 mg daily, methotrexate 20 mg weekly and Enbrel 50 mg weekly. In general the joints are doing fairly well but there still is intermittent pain in the hands, mostly across the PIP regions, wrists, the knees, and the lower back. She also takes some amitriptyline at night, baclofen during the day if needed, lidocaine patches, and venlafaxine. She has some iron deficiency anemia but is on iron. She was evaluated for this by her PCP and they think it is due to extra heavy bleeding during menses. [facility] History (Updated 10/07/23 @ 09:04 [facility] Screening for osteoporosis PERRY positive Seronegative rheumatoid arthritis Surgical History Hx of tubal ligation Family History Father Diabetes Rheumatoid arthritis CVD (cardiovascular disease) Mother Diabetes Pulmonary embolism Social History (Updated 07/15/23 @ 11:25 by [facility]andez [facility] Household Members: Other Household Members Other:: daughter Housing: Apartment Alcohol intake: current Patient Tobacco Use Status: Never used Tobacco Current occupational status: disabled 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 Regular rhythm, S1-S2 heard, no murmurs, rubs or gallops. LUNG:? Clear to percussion and auscultation EXTREMITIES: No edema, no calf tenderness, normal peripheral pulses. JOINT EXAM: Cervical Spine:? Full range of motion without pain; no tenderness. Thoracic Spine:? No scoliosis.? No tenderness on palpation. Lumbar Spine:? Alignment normal.? Full range of motion with mild pain at the extremes.? Tenderness to palpation of the lumbar spine and lumbar spinal muscles. Hands: Right: Pain-free range of motion but there is mild tenderness across the MCP and PIP regions. No flexor tendon triggering, soft tissue swelling, thenar atrophy, sensory loss redness, or warmth. Left: Normal pain-free range of motion with some mild tenderness at the 4th and 5th MCPs but no swelling is appreciated. Elsewhere there is no out tenderness, swelling, increased warmth or erythema. Wrists:? LEFT: Moderate pain with flexion or extension at 75 degrees with dorsal tenderness and warmth but no swelling or erythema. ? RIGHT:? Moderate pain with flexion or extension at 80 degrees.? Moderate tenderness to palpation in the center of the wrist.? No swelling, increased warmth or erythema. Elbows: Normal pain-free range of motion without tenderness, swelling, increased warmth or erythema. Shoulders:? Full range of motion without pain. No tenderness, weakness, swelling, increased warmth or erythema. Hips:? Full range of motion with some lumbar pain with extremes of abduction, internal rotation or external rotation. No groin pain with motion. Hip bursa:? No tenderness. Knees:?? Normal pain-free range of motion with mild pain at the extremes. She has some valgus deformity in the knees on both sides. There is some slight medial compartment tenderness bilaterally with some minimal patellofemoral crepitus on the left. No effusions, soft tissue swelling, popliteal tenderness, increased warmth or erythema.? Ankles: Normal pain-free range of motion without tenderness, swelling, increased warmth or erythema. Feet:?Normal pain-free range of motion without tenderness, swelling, increased warmth or erythema. Tender points:? Mild tenderness to digital palpation at the trapezius, second rib, lateral epicondyle, gluteal area bilaterally. ? 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 11/2019 6 tabs, increased to 8 tabs 01/2020- present Humira: 04/2020 - 11/2020 active synovitis on exam Enbrel: 11/2020- present Plaquenil- 2018- present, eye exam 09/09 Code(s): M06.00 - Rheumatoid arthritis without rheumatoid factor, unspecified site (4) Screening for osteoporosis: Code(s): Z13.820 - Encounter for screening for osteoporosis Plan #SeroNeg RA/OA: Ms. Bergeron is here for follow-up of Rheumatoid arthritis which appears mostly control of synovitis with current treatment, Enbrel, MTX, HCQ. She says that her RA is mostly in her knees and wrists. The wrists are both tender and warm on PE today. Her back symptoms are from lumbar OA. She has some valgus deformity in the knees which could predispose her to osteoarthritis of the knees in the future. We will continue Enbrel 50 mg QW, MTX 2.5mg 8 pills QW, HCQ 200mg BID. Given her warm and tender wrists, I will prescribe a course of prednisone and reassess for improve. Hopefully we can calm this down a bit for her. 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 Labs are from 05/2023 so we do need updated labs and also will order for next visit. She has also had an eye exam with no concerns in 2022 so I think she could continue her hydroxycloroquine as above. Labs were already ordered from last visit. #Osteoporisis Screening: Patient denies having a DEXA. This is recommended scre ening in light of the erosive inflammatory RA so I will order. Next Rheumatology in 4 months. 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
[2023-10-07 08:46] VITALS: BP 120/72; PULSE 79; TEMP 36.3; O2SAT 99
== END 2023-10-07 09:05 | disposition home or self-care (01) ==
PROVIDERS: PCP Internal Medicine; Visit Provider Nurse Practitioner Family
DX: Z79.899 Other long term (current) drug therapy (principal); M47.816 Spondylosis without myelopathy or radiculopathy, lumbar region; M06.00 Rheumatoid arthritis without rheumatoid factor, unspecified site; Z13.820 Encounter for screening for osteoporosis
CPT/HCPCS: 99213

== ENCOUNTER → 2023-10-07 08:36 | Outpatient (BNVA) | payer MEDICAID, SELFPAY | PROVIDERS: PCP Internal Medicine; Visit Provider Nurse Practitioner Family | DX: Z13.820 Encounter for screening for osteoporosis (principal); M47.816 Spondylosis without myelopathy or radiculopathy, lumbar region; M06.00 Rheumatoid arthritis without rheumatoid factor, unspecified site; Z79.899 Other long term (current) drug therapy | CPT/HCPCS: 99212 ==

== ENCOUNTER 2023-10-07 09:23 | Outpatient (REF) | payer MEDICAID, SELFPAY ==
[2023-10-07 10:51] LABS: MANUAL DIFF FLAG NO
[2023-10-07 11:03] LABS: Basophils Absolute Auto 0.1 X10*3/uL (0.0-0.2); Basophils Percent Auto 0.8 % (0-2); Eosinophils Absolute Auto 0.7 X10*3/uL (0.0-0.4); Eosinophils Percent Auto 8.6 % (0-4); Hematocrit 36.2 % (37.0-47.0); Hemoglobin 11.1 g/dl (12.0-16.0); Imm Gran Abs Auto 0.01 X10*3/uL (0.00-0.03); Imm Gran Pct Auto 0.1 % (0.0-0.4); Lymphocytes Absolute Auto 3.4 X10*3/uL (1.2-4.9); Lymphocytes Percent Auto 40.3 % (20-40); Mean Corpuscular HGB Conc 30.7 g/dl (31.0-35.0); Mean Corpuscular Hemoglobin 23.6 pg (27.0-33.0); Mean Corpuscular Volume 76.9 fL (80.0-98.0); Monocytes Absolute Auto 0.6 X10*3/uL (0.1-1.2); Monocytes Percent Auto 7.3 % (2-11); Neutrophils Absolute Auto 3.6 x10*3/uL (2.0-8.3); Neutrophils Percent Auto 42.9 % (45-73); Platelet Count 339 X10*3/uL (160-400); Red Blood Count 4.71 X10*6/uL (4.20-5.50); Red Cell Distribution Width 15.3 % (11.0-16.0); White Blood Count 8.5 X10*3/uL (4.8-10.8)
[2023-10-07 11:16] LABS: Alanine Aminotransferase 25 U/L (0-31); Aspartate Amino Transferase 18 U/L (5-31); C Reactive Protein 0.23 mg/dL (< or = 0.50); Estimated Glomerular Filt Rate > 60
[2023-10-07 11:49] LABS: Erythrocyte Sedimentation Rate 16 MM/HR (0-20)
== END 2023-10-07 09:24 | disposition home or self-care (01) ==
LOC: HO.10HDL 09:23
PROVIDERS: Visit Provider Internal Medicine Rheumatology
DX: M06.00 Rheumatoid arthritis without rheumatoid factor, unspecified site (principal); Z79.899 Other long term (current) drug therapy
CPT/HCPCS: 36415; 82565; 84450; 84460; 85025; 85652; 86140

== ENCOUNTER 2023-10-22 09:56 | Outpatient (REF) | payer MEDICAID, SELFPAY ==
--- NOTE | ~2023-10-22 | MM_ITS ---
EXAMINATION: BONE DENSITOMETRY CLINICAL INDICATION: Rheumatoid arthritis without rheumatoid factor, unspecified site. COMPARISON: This is the patient's baseline examination. TECHNIQUE: Using a Insightly DXA System (software version: 13.1) manufactured by [employer], dual-energy x-ray absorptiometry was performed of the lumbar spine and left hip. The images are of good technical quality. Summary results are attached. FINDINGS: LEFT FEMUR, NECK: BMD 0.901 g/cm2, Z-score -0.8, T-score -1.0, normal. LEFT FEMUR, TOTAL: BMD 0.986 g/cm2, Z-score -0.3, T-score -0.2, normal. AP SPINE L1-L4: BMD 1.090 g/cm2, Z-score -1.3, T-score -0.8, normal. IDENTIFIED RISK FACTORS: Early menopause, secondary osteoporosis, rheumatoid arthritis, height loss, osteoporosis. HISTORY OF FRACTURE: None listed. MEDICATIONS: None listed. MM/XR DEXA axial skeleton IMPRESSION: 1. DIAGNOSIS: Normal bone density based on the lowest T-score value of -1.0 in the femoral neck applying World Health Organization criteria. 2. 10-YEAR FRACTURE RISK PREDICTION, FRAX: According to the guidelines, FRAX calculation should only be performed on patients in the osteopenia bone density category. Therefore, FRAX was not performed on this patient. 3. Treatment Recommendations: NOF guidelines recommend consideration for treatment in postmenopausal women and men age 50 and older presenting with the following: -A hip or vertebral (clinical or morphometric) fracture. -T-score less than or equal to -2.5 at the femoral neck or spine after appropriate evaluation to exclude secondary causes. -Low bone mass at the hip or spine and a 10-year fracture probability by FRAX of greater than or equal to 3% for hip fracture or greater than or equal to 20% for major osteoporotic fracture based on the [place] adapted WHO algorithm. 4. Other Recommendations: All treatment decisions require clinical judgment and consideration of individual patient factors, including patient preferences, comorbidities, previous drug use, risk factors not captured in the FRAX model (e.g. frailty, falls, vitamin D deficiency, increased bone turnover, interval significant decline in bone density) and possible under or overestimation of fracture risk by FRAX. FUTURE SCAN RECOMMENDATION: People with diagnosed cases of osteoporosis or at high risk for fracture should have regular bone mineral density tests. For patients eligible for Medicare, routine testing is allowed once every 2 years. The testing frequency can be increased to one year for patients who have rapidly progressing disease, those who are receiving or discontinuing medical therapy to restore bone mass, or have additional risk factors.
== END 2023-10-22 09:57 | disposition home or self-care (01) ==
LOC: HO.MAMMO 09:56
PROVIDERS: PCP Internal Medicine; Visit Provider Nurse Practitioner Family
DX: Z13.820 Encounter for screening for osteoporosis (principal); M06.00 Rheumatoid arthritis without rheumatoid factor, unspecified site; Z78.0 Asymptomatic menopausal state
CPT/HCPCS: 77080

== ENCOUNTER 2024-04-01 14:38 | Outpatient (REF) | payer MEDICAID, SELFPAY ==
[2024-04-01 15:59] LABS: MANUAL DIFF FLAG NO
[2024-04-01 16:14] LABS: Basophils Absolute Auto 0.1 X10*3/uL (0.0-0.2); Basophils Percent Auto 0.9 % (0-2); Eosinophils Absolute Auto 0.4 X10*3/uL (0.0-0.4); Eosinophils Percent Auto 4.3 % (0-4); Hematocrit 34.6 % (37.0-47.0); Hemoglobin 10.9 g/dl (12.0-16.0); Imm Gran Abs Auto 0.02 X10*3/uL (0.00-0.03); Imm Gran Pct Auto 0.2 % (0.0-0.4); Lymphocytes Absolute Auto 3.2 X10*3/uL (1.2-4.9); Lymphocytes Percent Auto 35.7 % (20-40); Mean Corpuscular HGB Conc 31.5 g/dl (31.0-35.0); Mean Corpuscular Hemoglobin 23.4 pg (27.0-33.0); Mean Corpuscular Volume 74.2 fL (80.0-98.0); Mean Platelet Volume 11.1 fL (9.4-12.3); Monocytes Absolute Auto 0.7 X10*3/uL (0.1-1.2); Monocytes Percent Auto 7.4 % (2-11); Neutrophils Absolute Auto 4.6 x10*3/uL (2.0-8.3); Neutrophils Percent Auto 51.5 % (45-73); Platelet Count 415 X10*3/uL (160-400); Red Blood Count 4.66 X10*6/uL (4.20-5.50); Red Cell Distribution Width 15.8 % (11.0-16.0)
[2024-04-01 16:36] LABS: Alanine Aminotransferase 34 U/L (0-31); Albumin Level 4.1 g/dL (3.5-5.0); Alkaline Phosphatase 67 U/L (39-117); Anion Gap 13 (12-20); Aspartate Amino Transferase 26 U/L (5-31); Bilirubin Total 0.4 mg/dL (0.0-1.0); Blood Urea Nitrogen 10 mg/dL (9-16); Carbon Dioxide 25 mmol/L (22-29); Chloride 105 mmol/L (96-108); Cholesterol 163 mg/dL (<200); Estimated Glomerular Filt Rate > 60; Glucose Random 104 mg/dL (60-115); HDL Cholesterol 39 mg/dL (>40); Iron 26 mcg/dL (30-160); LDL Cholesterol Calculated 90 mg/dL (<100); Percent Iron Saturation 7 % (15-50); Potassium 4.2 mmol/L (3.3-5.1); Sodium 139 mmol/L (135-145); Total Iron Binding Capacity 348 mcg/dL (228-428); Total Protein 8.2 g/dL (6.5-8.0); Triglycerides 173 mg/dL (<150); Unsaturated Iron Binding 322 ug/dL
[2024-04-01 16:52] LABS: TSH reflex Free T4 0.51 uIU/mL (0.32-4.0); Vitamin D 25-OH Total 32.5 ng/mL (>30)
[2024-04-01 17:15] LABS: Folate 9.2 ng/mL (> or = 4.0); Vitamin B12 1027 pg/mL (200-900)
[2024-04-01 17:55] LABS: Reflex LDLD? No
[2024-04-02 04:11] LABS: HBS Num1 0.52 mIU/mL (0-7.99); HBc Num1 0.24 S/CO (0.00-0.79); HBsAGNum1 0.31 S/CO (0.00-0.99); HIV AB/AG Nonreactive (Nonreactive); HIV Num 1 0.16 S/CO (0.00-0.99); Hepatitis A Antibody IgM 0.18 Index (0-0.79); Hepatitis B Core Antibody Nonreactive (Nonreactive); Hepatitis B Surface Antigen Negative (Negative); ~HepC Num1 0.12 S/CO (0.00-0.79); ~Hepatitis A Antibody IgM Nonreactive (Nonreactive); ~Hepatitis B Surface Antibody NONREACTIVE (Nonreactive); ~Hepatitis C Antibody Nonreactive (Nonreactive)
== END 2024-04-01 14:39 | disposition home or self-care (01) ==
LOC: HO.HHCL 14:38
PROVIDERS: Visit Provider Internal Medicine
DX: R53.83 Other fatigue (principal)
CPT/HCPCS: 36415; 80053; 80061; 82306; 82607; 82746; 83540; 84443; 85025; 86704; 86706; 86709; 86803; 87340; 87389

== ENCOUNTER 2024-04-14 15:37 | Outpatient (AMB) | payer MEDICAID, SELFPAY ==
[2024-04-14 15:39] VITALS: BP 118/70; PULSE 90; O2SAT 99; BMI 35.7
--- NOTE | 2024-04-14 15:39 | MHC.OFFVIS ---
Vital Signs 04/14/24 15:39 Height 4 ft 11 in Weight 176 lb 9.444 oz BMI 35.7 BP 118/70 Blood Pressure Location Lt brachial Position Sitting Pulse 90 Pulse Source Pulse Oximeter Pulse Oximetry (%) 99 Oxygen Delivery Method Room Air Intake Visit Reasons: Rheumatoid arthritis Intake Note: Patient presents today for follow up on RA/OA, she was last seen by Prachi Villalba on 10/07/2023. Fast Food Sales Assistant Services: Fast Food Sales Assistant Present Fast Food Sales Assistant Name: Rodger [id number] Allergies gabapentin Adverse Reaction (Intermediate, Verified 04/14/24 15:44) Gastrointestinal Upset Medication List - Last Reconciled 04/14/24 by Tere Guevara MD alcohol swabs (Alcohol Prep Pads) 0 pad topical BID amitriptyline 10 mg PO BEDTIME atorvastatin 40 mg PO BEDTIME baclofen 10 mg PO BID blood sugar diagnostic (FreeStyle Lite Strips) As directed cholecalciferol (vitamin D3) (Vitamin D3) 50 mcg PO QPM Enbrel SureClick (etanercept) 50 mg subcut QWEEK NS ferrous sulfate (FeroSul) 325 mg PO QAM fluticasone propionate 110 mcg/actuation (Flovent HFA) 2 puffs inhalation BID folic acid 1 mg PO QAM hydrochlorothiazide 25 mg PO QAM hydroxychloroquine 200 mg PO QAM hydroxyzine HCl 50 mg PO lidocaine 5% (Lidoderm) 0 patches topical metformin 500 mg PO BID methotrexate sodium 10 mg (4 x 2.5 mg) PO QWEEK omeprazole 40 mg PO QAM venlafaxine ER 75 mg PO QAM HPI Comments Details: This is a 43-year-old female with seronegative RA who presents for follow-up. She is on methotrexate 4 tabs weekly, Enbrel 50 mg weekly, hydroxychloroquine 20 mg daily. She states that she has been having low back pain that is nonradiating. She states that she has done physical therapy twice, last time was last year which provided little relief. She states that she was evaluated by a specialist for her spine about 9 years ago and received cortisone injections in her spine which helped for a few months. 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 Review of Systems Musc Reports back pain and Denies radiating pain into limb Physical Exam Vital Signs: Last Vital Signs Pulse 90 04/14/24 15:39 BP 118/70 04/14/24 15:39 Pulse Ox 99 04/14/24 15:39 Oxygen Delivery Method Room Air 04/14/24 15:39 BMI result Body Mass Index 35.7 Const General: cooperative, healthy appearing and comfortable Nutritional Appearance: obese morbidly obese Orientation/consciousness: patient oriented x3 Limitations: no limitations HEENT Head: Yes normocephalic and Yes atraumatic Mouth: moist mucous membranes Resp Effort & Inspection: normal respiratory effort and able to speak in complete sentences Auscultation: clear to auscultation bilaterally Cardio Rate: regular rate Rhythm: regular rhythm Skin General skin exam: no rashes or lesions noted Neuro General: patient oriented x3 Extrem Other: Lower lumbar paraspinal muscle tenderness No active synovitis Mildly limited range of motion of right shoulder with positive empty can test Assessment & Plan Assessment & Plan (1) Seronegative rheumatoid arthritis: Comment: Methotrexate: Since 2011. 11/2019 present Humira: 04/2020 - 11/2020 active synovitis on exam Enbrel: 11/2020- present Plaquenil- 2019- present Code(s): M06.00 - Rheumatoid arthritis without rheumatoid factor, unspecified site Category: Medical Plan: This is a 43-year-old female with seronegative RA who presents for follow-up. 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 Had PT twice with little relief, most recent was in 2022. Had injections in her spine about 9 years ago in [place]. Patient is agreeable to get re-evaluated by pain management (4) Screening for osteoporosis: Code(s): Z13.820 - Encounter for screening for osteoporosis Category: Medical Plan: DEXA scan 10/2023 normal (5) Long-term use of hydroxychloroquine: Comment: eye exam OK 02/2024 Code(s): Z79.899 - Other manager long term care (current) drug therapy Category: Medical Plan: Follow-up regularly with building construction supervisor Plan I spent 40 minutes reviewing patient's chart, evaluating patient, ordering diagnostic workup, counseling patient and documenting in the chart Orders: Orders C Reactive Protein Today M06.00 - Rheumatoid arthritis without rheumatoid factor, unspecified site, Z79.899 - Other 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 (current) drug therapy Erythrocyte Sedimentation Rate Today M06.00 - Rheumatoid arthritis without rheumatoid factor, unspecified site, Z79.899 - Other 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 (current) drug therapy Complete Blood Count Auto Diff Today M06.00 - Rheumatoid arthritis without rheumatoid factor, unspecified site, Z79.899 - Other 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 (current) drug therapy Comprehensive Met. Panel Today M06.00 - Rheumatoid arthritis without rheumatoid factor, unspecified site, Z79.899 - Other manager long term care (current) drug therapy Referrals Pain Management Referral M51.36 - Other intervertebral disc degeneration, lumbar region Medications: Changed From methotrexate sodium 20 mg (8 x 2.5 mg) PO QWEEK 32 ea 0RF To methotrexate sodium 10 mg (4 x 2.5 mg) PO QWEEK 56 ea 0RF Refilled folic acid 1 mg PO QAM 90 tabs 1RF Discontinued prednisone Discontinued Reason: Doctor's Order 3 tablets per day x 7 days 2 tablets per day x 7 days 1 tablet per day x 7 days 60 tabs 0RF M06.00 - Rheumatoid arthritis without rheumatoid factor, unspecified site Coding Level of Care Code Est Pt Level 5 (68688) Complex EM visit Add On G2211 Diagnoses Seronegative rheumatoid arthritis M06.00 longterm methotrexate user Z79.899 Lumbar degenerative disc disease M51.36 Screening for osteoporosis Z13.820 Long-term use of hydroxychloroquine Z79.899
== END 2024-04-14 16:01 | disposition home or self-care (01) ==
PROVIDERS: PCP Internal Medicine; Visit Provider Student in an Organized Health Care Education/Training Program
DX: M06.09 Rheumatoid arthritis without rheumatoid factor, multiple sites (principal); Z79.899 Other long term (current) drug therapy; M51.36 Other intervertebral disc degeneration, lumbar region; Z13.820 Encounter for screening for osteoporosis
CPT/HCPCS: 99215

== ENCOUNTER → 2024-04-14 15:37 | Outpatient (BNVA) | payer MEDICAID, SELFPAY | PROVIDERS: PCP Internal Medicine; Visit Provider Student in an Organized Health Care Education/Training Program | DX: M06.00 Rheumatoid arthritis without rheumatoid factor, unspecified site (principal); M51.36 Other intervertebral disc degeneration, lumbar region; Z79.899 Other long term (current) drug therapy | CPT/HCPCS: 99212 ==

== ENCOUNTER 2024-05-04 09:40 | Outpatient (AMB) | payer MEDICAID, SELFPAY ==
--- NOTE | 2024-05-04 09:41 | MHC.OFFVIS ---
Vital Signs 05/04/24 09:46 Height 4 ft 11 in Weight 175 lb 2 oz BMI 35.4 BP 143/80 H Blood Pressure Location Lt brachial Position Sitting Pulse 83 Pulse Source Pulse Oximeter Pulse Oximetry (%) 98 Oxygen Delivery Method Room Air Intake Visit Reasons: intervertebral disc degeneration, lumbar region Intake Note: Pain today 7/10 Manager Sales Training Required: Yes Manager Sales Training Language: Logistics/Shipper Services: Manager Sales Training Present Manager Sales Training Name: Rosa #[id number] Accompanied by: Self / Same As Patient Allergies gabapentin Adverse Reaction (Intermediate, Verified 05/04/24 09:50) Gastrointestinal Upset HPI HPI intervertebral disc degeneration, lumbar region: Details: Patient is a pleasant 43 years old Pashto speaking female with past history of chronic low back pain, lumbar degenerative disc disease, seronegative RA and osteoarthritis, headaches, diabetes, presents today for initial evaluation for low back pain. Denies any past or recent trauma, injury, or falls. Back pain is axial with discogenic pain components and does not radiate to lower extremities. Pain is most severe with prolonged standing, bending and most ADLs. Denies any previous spine surgery or injections. Patient attempted physical therapy about 2 years ago but could not continue due to increasing pain. Currently her pain ranges 7-9/10. Pain affects her daily activities and functioning, mobility, sleep, mood, and social interactions patient is interested to undergo diagnostic lumbar medial branch blocks for potential Sprint PNS trial or RFA procedures. Lumbar spine MRI was completed in 2022 and is noted below. Denies any fever or chills, abdominal or groin pain, footdrop, weakness, bladder or bowel dysfunction or saddle anesthesia. Patient reports good social and mental support system at home. Oswestry Low Back Disability Score=32 (severe disability) Location: Lower back pain Duration: Chronic pain >1.5 years Characteristics of symptom or complaint: Sharp, dull, throbbing, aching, tightness, pulling, sore, heavy, spasming Aggravating or associated factors: Prolonged standing, movements, ADLs, cold weather changes Relieving factors: Lidocaine patches, Tylenol, baclofen, heat therapy, OTC topical application Treatment: PT--increased pain PFSH Medical History (Updated 05/04/24 @ 10:11 by BRY Chaney) Screening for osteoporosis PERRY positive Seronegative rheumatoid arthritis Surgical History Hx of tubal ligation Family History Father Diabetes Rheumatoid arthritis CVD (cardiovascular disease) Mother Diabetes Pulmonary embolism Social History Household Members: Other Household Members Other:: daughter Housing: Apartment Alcohol intake: current Patient Tobacco Use Status: Never used Tobacco Current occupational status: disabled 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 Alert and oriented. Mood and affect appropriate. Follows and participates in conversation appropriately. Respiratory effort is unlabored. No cough. Able to transition from sit to stand unassisted. Ambulates with bilaterally normal heel strike and toe off. Const General: healthy appearing, no acute distress and well groomed Nutritional Appearance: obese Limitations: language barrier Back/Spine/Pelvis Other: Patient is able to walk and stand on heels and tip toes with no difficulties demonstrating good motor tone. No limping. Can flex forward to 80-90 degrees and extend to 5-10 degrees before experiencing lumbar pain. Demonstrates 5/5 strength of quadriceps bilaterally as well as flexion/dorsiflexion of bilateral feet against resistance. 2+ pedal pulses bilaterally. Seated/Supine straight leg rise with dorsiflexion negative bilaterally. +2 patellar and achilles reflexes bilaterally. Facet loading test positive bilaterally. Hang sign, Teodoro?s, [place]len, Pelvic compression and Stinchfield tests are negative/positive bilaterally. No groin pain with I/E hip rotations. Significant paraspinals tenderness mostly on the right/left side, thoracic/mid and lower back. Valsalva maneuver negative. Results Reviewed Results Reviewed: MR LUMBAR SPINE WITHOUT CONTRAST 02/20/23 CLINICAL INFORMATION: Low back pain. FINDINGS: VERTEBRAL BODIES AND PARASPINAL STRUCTURES: There are articulating transverse processes at what is considered the L1 level. The L5 vertebra is transitional and partially sacralized. The marrow signal is fairly homogeneous. Mildly reduced intradiscal signal noted at multiple levels. There is a mild leftward lumbar spinal curvature. No compression fractures are seen. The paraspinal soft tissues appear normal. CONUS MEDULLARIS AND CAUDA EQUINE: The distal cord, conus tip, and cauda equina nerve roots are normal. SPINAL LEVELS: L1-L2: Mild anterior endplate spurring. No focal protrusion, central canal stenosis, or foraminal narrowing. L2-L3: Mild posterior disc bulge and facet arthropathy without central canal stenosis. Very mild right foraminal encroachment. L3-L4: Posterior disc bulge and hypertrophic facet arthropathy without central canal stenosis. Mild bilateral foraminal narrowing. L4-L5: Mild disc degeneration and disc bulge with hypertrophic facet arthrosis. No central canal stenosis. [id number] foraminal narrowing with bulging disc and facet spurring mildly impressing upon the L4 nerve roots, more so on the right side. L5-S1: Well-hydrated disc with mild to moderate facet arthropathy, more so on the right side. No central canal stenosis or foraminal narrowing. 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 Mild leftward lumbar spinal curvature. Mild multilevel disc bulges and facet arthropathy without central canal stenosis. Hlib-wg-[id number] foraminal narrowing at the L4-L5 level with bulging disc and facet spurring mildly impressing upon the right greater than left L4 nerve roots. MM/XR DEXA axial skeleton 10/22/23 IMPRESSION: 1. DIAGNOSIS: Normal bone density based on the lowest T-score value of -1.0 in the femoral neck applying World Health Organization criteria. Assessment & Plan Assessment & Plan (1) Lumbar degenerative disc disease: Code(s): M51.36 - Other intervertebral disc degeneration, lumbar region Category: Medical (2) Low back pain: Code(s): M54.5 - Low back pain Category: Medical (3) Lumbosacral spondylosis: Code(s): M47.817 - Spondylosis without myelopathy or radiculopathy, lumbosacral region Category: Medical Plan Schedule Bilateral Diagnostic L3-L4 DR L5 MBB with local and fluoroscopy. Expectations, risks and benefits were reviewed. Patient is aware she will be contacted to schedule this procedure. If she has significant relief from the diagnostic blocks for her axial low back pain, will consider either therapeutic injections, Sprint PNS or RFA depending on her preference. Informational pamphlets were provided to patient. The patient was educated on her pain generators and all the different treatment plans. Patient reports good social and mental support system at home. All questions were answered and the patient is in agreement of plan. Follow-up after injections and sooner as needed. Coding Level of Care Code New Pt Level 4 (09647) Complex EM visit Add On G2211 Diagnoses Lumbar degenerative disc disease M51.36 Low back pain M54.5 Lumbosacral spondylosis M47.817
[2024-05-04 09:46] VITALS: BP 143/80; PULSE 83; O2SAT 98; BMI 35.4
== END 2024-05-04 10:03 | disposition home or self-care (01) ==
PROVIDERS: PCP Internal Medicine; Visit Provider Nurse Practitioner Family
DX: M51.36 Other intervertebral disc degeneration, lumbar region (principal); M54.50 Low back pain, unspecified; M47.817 Spondylosis without myelopathy or radiculopathy, lumbosacral region
CPT/HCPCS: 99204

== ENCOUNTER → 2024-05-04 09:40 | Outpatient (BNVA) | payer MEDICAID, SELFPAY | PROVIDERS: PCP Internal Medicine; Visit Provider Nurse Practitioner Family | DX: M51.36 Other intervertebral disc degeneration, lumbar region (principal); M47.817 Spondylosis without myelopathy or radiculopathy, lumbosacral region | CPT/HCPCS: 99212 ==

== ENCOUNTER 2024-06-10 06:14 | Outpatient (REF) | payer MEDICAID, SELFPAY | END 2024-06-10 06:15 | disposition home or self-care (01) | LOC: CF 06:14 | PROVIDERS: Visit Provider Internal Medicine | DX: M47.817 Spondylosis without myelopathy or radiculopathy, lumbosacral region (principal) | CPT/HCPCS: 64493; 64494; J2003; J2795; Q9967 ==

== ENCOUNTER 2024-06-10 08:22 | Outpatient (AMB) | payer MEDICAID, SELFPAY ==
[2024-06-10 08:49] VITALS: BP 125/79; PULSE 79; O2SAT 99
--- NOTE | 2024-06-10 08:49 | MHC.OFFVIS ---
Vital Signs 06/10/24 08:49 06/10/24 09:36 BP 125/79 145/82 H Blood Pressure Location Lt brachial Lt brachial Position Sitting Sitting Pulse 79 68 Pulse Source Pulse Oximeter Pulse Oximeter Pulse Oximetry (%) 99 100 Oxygen Delivery Method Room Air Room Air Intake Visit Reasons: Jose Dx L3-L4-DR-L5 MBB Allergies gabapentin Adverse Reaction (Intermediate, Verified 05/04/24 09:50) Gastrointestinal Upset HPI HPI Jose Dx L3-L4-DR-L5 MBB: Details: Patient presents for scheduled procedure. Denies any recent cough, cold, infection, fever or other significant changes in medical history since last office visit. 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 The patient was placed in a prone position. The respective lumbosacral area was prepped with chloraprep and draped in sterile fashion. The skin over the target medial branch nerves was anesthetized with 0.5% lidocaine. A 22 gauge 3.5 inch needle was inserted into the target medial branch nerve under fluoroscopic guidance. No paresthesias were elicited with needle placement and aspiration was negative for blood and CSF. Next, 0.2cc of omnipaque 180 was injected to verify positioning. Next 0.5 ml 0.5% ropivicaine was injected (0.5cc total per level). The identical procedure was performed at the remaining levels. The skin was cleansed and a sterile bandage was applied. Following the procedure the patient's vital signs were stable. The patient tolerated the procedure well and no complications were encountered. Following the procedure the patient's vital signs were stable. The patient was discharged home in good condition with post-procedural instructions. Time Out: Immediately prior to the procedure, the following was verbally confirmed that there is a signed consent form and that the correct patient, planned procedure, site and side are consistent with documentation and that necessary equipment and/or blood products are available prior to the start of the case. Complications: none EBL: <5 cc 56568 - with Fluoroscopy (Bilateral) 53949 - second level, with Fluoroscopy Procedure code (CPT) selection complete Assessment & Plan Assessment & Plan (1) Lumbosacral spondylosis: Code(s): M47.817 - Spondylosis without myelopathy or radiculopathy, lumbosacral region Category: Medical Plan Patient is status post bilateral L3, L4 medial branches and L5 dorsal ramus diagnostic blocks. Patient tolerated procedure well and was discharged home in stable condition with discharge instructions. All questions were answered. We will follow-up via telephone or in clinic to assess response to therapy. A follow-up appointment was made during today's visit. Orders: Orders FL guidance in treatment room Today M47.817 - Spondylosis without myelopathy or radiculopathy, lumbosacral region Coding Level of Care Code Procedure Only Diagnoses Lumbosacral spondylosis M47.817 CPT Codes Facet Injection-Lumbar/Sacral - CPT: 34323 - with Fluoroscopy ([id number]) Facet Injection-Lumbar/Sacral - CPT: 39066 - second level, with Fluoroscopy ([id number])
[2024-06-10 09:36] VITALS: BP 145/82; PULSE 68; O2SAT 100
== END 2024-06-10 09:42 | disposition home or self-care (01) ==
LOC: HO.PMCPRC 08:22
PROVIDERS: PCP Internal Medicine; Visit Provider Internal Medicine
DX: M47.817 Spondylosis without myelopathy or radiculopathy, lumbosacral region (principal)
CPT/HCPCS: 64493; 64494

== ENCOUNTER 2024-06-17 09:17 | Outpatient (AMB) | payer MEDICAID, SELFPAY ==
--- NOTE | 2024-06-17 09:20 | A.OFFVIS_ITS ---
Vital Signs 06/17/24 09:27 Height 4 ft 11 in Weight 175 lb 6 oz BMI 35.4 BP 138/83 Blood Pressure Location Rt brachial Position Sitting Pulse 84 Pulse Source Pulse Oximeter Pulse Oximetry (%) 100 Oxygen Delivery Method Room Air Intake Visit Reasons: s/p allen Dx L3-L4-DR-L5 MBB Intake Note: Pain today 0/10 Chain Forming Machine Operator Required: Yes Chain Forming Machine Operator Language: Switch Maker Services: Chain Forming Machine Operator Present Chain Forming Machine Operator Name: Ruba #[id number] Accompanied by: Self / Same As Patient Allergies gabapentin Adverse Reaction (Intermediate, Verified 06/17/24 09:30) Gastrointestinal Upset HPI Comments Details: Patient presents today to assess response to Bilateral Diagnostic L3-L4 DR L5 MBB on 06/10/[address] Patel. Patient reports 100% ongoing pain relief since procedure with significant improvement with her ADLs, mobility, sleep and quality of life. Patient would like to proceed with lumbar medial branch RFA procedures as next steps for a longer term pain relief. She is not interested in peripheral nerve stimulation or therapeutic injections. Denies any recent cough, cold, infection, fever or other significant changes in medical history since last office visit. Past Procedures: 06/10/24: Bilateral Diagnostic L3-L4 DR L5 MBB-100% pain relief >1 week PRIOR: Patient is a pleasant 43 years old Amharic speaking female with past history of chronic low back pain, lumbar degenerative disc disease, seronegative RA and osteoarthritis, headaches, diabetes, presents today for initial evaluation for low back pain. Denies any past or recent trauma, injury, or falls. Back pain is axial with discogenic pain components and does not radiate to lower extremities. Pain is most severe with prolonged standing, bending and most ADLs. Denies any previous spine surgery or injections. Patient attempted physical therapy about 2 years ago but could not continue due to increasing pain. Currently her pain ranges 7-9/10. Pain affects her daily activities and functioning, mobility, sleep, mood, and social interactions patient is interested to undergo diagnostic lumbar medial branch blocks for potential Sprint PNS trial or RFA procedures. Lumbar spine MRI was completed in 2022 and is noted below. Denies any fever or chills, abdominal or groin pain, footdrop, weakness, bladder or bowel dysfunction or saddle anesthesia. Patient reports good social and mental support system at home. Oswestry Low Back Disability Score=32 (severe disability) Location: Lower back pain Duration: Chronic pain >1.5 years Characteristics of symptom or complaint: Sharp, dull, throbbing, aching, tightness, pulling, sore, heavy, spasming Aggravating or associated factors: Prolonged standing, movements, ADLs, cold weather changes Relieving factors: Lidocaine patches, Tylenol, baclofen, heat therapy, OTC topical application Treatment: PT--increased pain PFSH Medical History (Updated 05/04/24 @ 10:11 by BRY Chaney) Screening for osteoporosis PERRY positive Seronegative rheumatoid arthritis Surgical History Hx of tubal ligation Family History Father Diabetes Rheumatoid arthritis CVD (cardiovascular disease) Mother Diabetes Pulmonary embolism Social History Household Members: Other Household Members Other:: daughter Housing: Apartment Alcohol intake: current Patient Tobacco Use Status: Never used Tobacco Current occupational status: disabled 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 Alert and oriented. Mood and affect appropriate. Follows and participates in conversation appropriately. Respiratory effort is unlabored. No cough. Able to transition from sit to stand unassisted. Ambulates with bilaterally normal heel strike and toe off. Results Reviewed Results Reviewed: MR LUMBAR SPINE WITHOUT CONTRAST 02/20/23 CLINICAL INFORMATION: Low back pain. FINDINGS: VERTEBRAL BODIES AND PARASPINAL STRUCTURES: There are articulating transverse processes at what is considered the L1 level. The L5 vertebra is transitional and partially sacralized. The marrow signal is fairly homogeneous. Mildly reduced intradiscal signal noted at multiple levels. There is a mild leftward lumbar spinal curvature. No compression fractures are seen. The paraspinal soft tissues appear normal. CONUS MEDULLARIS AND CAUDA EQUINE: The distal cord, conus tip, and cauda equina nerve roots are normal. SPINAL LEVELS: L1-L2: Mild anterior endplate spurring. No focal protrusion, central canal stenosis, or foraminal narrowing. L2-L3: Mild posterior disc bulge and facet arthropathy without central canal stenosis. Very mild right foraminal encroachment. L3-L4: Posterior disc bulge and hypertrophic facet arthropathy without central canal stenosis. Mild bilateral foraminal narrowing. L4-L5: Mild disc degeneration and disc bulge with hypertrophic facet arthrosis. No central canal stenosis. Teur-st-xwhrjuln foraminal narrowing with bulging disc and facet spurring mildly impressing upon the L4 nerve roots, more so on the right side. L5-S1: Well-hydrated disc with mild to moderate facet arthropathy, more so on the right side. No central canal stenosis or foraminal narrowing. 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 Mild leftward lumbar spinal curvature. Mild multilevel disc bulges and facet arthropathy without central canal stenosis. Awvs-gx-efeqetpa foraminal narrowing at the L4-L5 level with bulging disc and facet spurring mildly impressing upon the right greater than left L4 nerve roots. MM/XR DEXA axial skeleton 10/22/23 IMPRESSION: 1. DIAGNOSIS: Normal bone density based on the lowest T-score value of -1.0 in the femoral neck applying World Health Organization criteria. Assessment & Plan Assessment & Plan (1) Low back pain: Code(s): M54.5 - Low back pain Category: Medical (2) Lumbosacral spondylosis: Code(s): M47.817 - Spondylosis without myelopathy or radiculopathy, lumbosacral region Category: Medical Plan Schedule Bilateral L3-L4 DR L5 Medial Branch RFA with sedation and fluoroscopy given excellent results with recent diagnostic lumbar medial branch blocks and significant improvement with ADLs, sleep and quality of life. Expectations, risks and benefits were reviewed. Patient is aware she will be contacted to schedule this procedure. Patient is not interested in peripheral nerve stimulation or therapeutic injections. All questions were answered and the patient is in agreement of plan. Follow-up after RFA procedure and sooner as needed. Coding Level of Care Code Est Pt Level 3 (58436) Diagnoses Low back pain M54.5 Lumbosacral spondylosis M47.817
[2024-06-17 09:27] VITALS: BP 138/83; PULSE 84; O2SAT 100; BMI 35.4
== END 2024-06-17 09:43 | disposition home or self-care (01) ==
LOC: HO.PMC 09:17
PROVIDERS: PCP Internal Medicine; Visit Provider Nurse Practitioner Family
DX: M54.50 Low back pain, unspecified (principal); M47.817 Spondylosis without myelopathy or radiculopathy, lumbosacral region
CPT/HCPCS: 99213

== ENCOUNTER → 2024-06-17 09:17 | Outpatient (BNVA) | payer MEDICAID, SELFPAY | PROVIDERS: PCP Internal Medicine; Visit Provider Nurse Practitioner Family | DX: M54.50 Low back pain, unspecified (principal); M47.817 Spondylosis without myelopathy or radiculopathy, lumbosacral region | CPT/HCPCS: 99212 ==

== ENCOUNTER 2024-08-05 08:41 | Outpatient (REF) | payer MEDICAID, SELFPAY ==
[2024-08-05 10:32] LABS: MANUAL DIFF FLAG NO
[2024-08-05 10:37] LABS: Basophils Absolute Auto 0.1 X10*3/uL (0.0-0.2); Basophils Percent Auto 0.9 % (0-2); Eosinophils Absolute Auto 0.9 X10*3/uL (0.0-0.4); Eosinophils Percent Auto 9.8 % (0-4); Hemoglobin 10.8 g/dl (12.0-16.0); Imm Gran Abs Auto 0.02 X10*3/uL (0.00-0.03); Imm Gran Pct Auto 0.2 % (0.0-0.4); Lymphocytes Percent Auto 33.9 % (20-40); Mean Corpuscular HGB Conc 30.9 g/dl (31.0-35.0); Mean Corpuscular Hemoglobin 23.5 pg (27.0-33.0); Mean Corpuscular Volume 76.3 fL (80.0-98.0); Mean Platelet Volume 11.4 fL (9.4-12.3); Monocytes Absolute Auto 0.7 X10*3/uL (0.1-1.2); Monocytes Percent Auto 7.5 % (2-11); Neutrophils Absolute Auto 4.3 x10*3/uL (2.0-8.3); Neutrophils Percent Auto 47.7 % (45-73); Platelet Count 361 X10*3/uL (160-400); Red Blood Count 4.59 X10*6/uL (4.20-5.50); Red Cell Distribution Width 16.3 % (11.0-16.0); White Blood Count 8.9 X10*3/uL (4.8-10.8)
[2024-08-05 10:53] LABS: Alanine Aminotransferase 32 U/L (0-31); Albumin Level 4.2 g/dL (3.5-5.0); Alkaline Phosphatase 67 U/L (39-117); Anion Gap 11 (12-20); Aspartate Amino Transferase 28 U/L (5-31); Bilirubin Total 0.3 mg/dL (0.0-1.0); Blood Urea Nitrogen 12 mg/dL (9-16); C Reactive Protein 0.21 mg/dL (< or = 0.50); Calcium 9.2 mg/dL (8.4-10.2); Carbon Dioxide 26 mmol/L (22-29); Chloride 106 mmol/L (96-108); Estimated Glomerular Filt Rate > 60; Glucose Random 111 mg/dL (60-115); Potassium 4.1 mmol/L (3.3-5.1); Sodium 139 mmol/L (135-145); Total Protein 8.4 g/dL (6.5-8.0)
[2024-08-05 11:14] LABS: Erythrocyte Sedimentation Rate 14 MM/HR (0-20)
== END 2024-08-05 08:42 | disposition home or self-care (01) ==
LOC: HO.10HDL 08:41
PROVIDERS: Visit Provider Student in an Organized Health Care Education/Training Program
DX: M06.00 Rheumatoid arthritis without rheumatoid factor, unspecified site (principal); Z79.899 Other long term (current) drug therapy
CPT/HCPCS: 36415; 80053; 85025; 85652; 86140

== ENCOUNTER 2024-08-09 13:49 | Outpatient (AMB) | payer MEDICAID, SELFPAY ==
--- NOTE | 2024-08-09 13:52 | A.OFFVIS_ITS ---
Vital Signs 08/09/24 13:55 Height 4 ft 11 in Weight 178 lb 5.663 oz BMI 36.0 BP 134/90 H Blood Pressure Location Rt brachial Position Sitting Pulse 101 H Pulse Source Pulse Oximeter Pulse Oximetry (%) 98 Oxygen Delivery Method Room Air Intake Visit Reasons: RA Intake Note: Patient presents for RA. Corporate Safety Manager Required: Yes Corporate Safety Manager Language: Supervisor Warping Department Services: Corporate Safety Manager Present Corporate Safety Manager Name: Hugh [phone] Information Interpreted: non-clinical & clinical Allergies gabapentin Adverse Reaction (Intermediate, Verified 08/09/24 13:55) Gastrointestinal Upset Medication List - Last Reconciled 08/09/24 by Tere Guevara MD acetaminophen 1,000 mg PO Q8H PRN alcohol swabs (Alcohol Prep Pads) 0 pad topical BID amitriptyline 10 mg PO BEDTIME atorvastatin 40 mg PO BEDTIME baclofen 10 mg PO BID blood sugar diagnostic (FreeStyle Lite Strips) As directed cholecalciferol (vitamin D3) (Vitamin D3) 50 mcg PO QPM etanercept (Enbrel SureClick) 50 mg subcut QWEEK ferrous sulfate (FeroSul) 325 mg PO QAM fluticasone propionate 110 mcg/actuation (Flovent HFA) 2 puffs inhalation BID folic acid 1 mg PO QAM hydrochlorothiazide 25 mg PO QAM hydroxychloroquine 200 mg PO QAM hydroxyzine HCl 50 mg PO lidocaine 5% (Lidoderm) 0 patches topical metformin 500 mg PO BID methotrexate sodium 10 mg (4 x 2.5 mg) PO QWEEK omeprazole 40 mg PO QAM venlafaxine ER 75 mg PO QAM HPI Comments Details: This is a 43-year-old female with seronegative RA who presents for follow-up. She is on methotrexate 10 mg weekly, Enbrel 50 mg weekly, hydroxychloroquine 200 mg daily. She states that she was evaluated by pain management and had an injection in her low back. She stated that the injection was not very helpful. She has been having some pain and limitation of motion of her right shoulder. She denies any recent trauma, injury or overuse. 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 Review of Systems Musc Reports arthralgias, Reports limited range of motion and Reports stiffness Physical Exam Vital Signs: Last Vital Signs Pulse 101 H 08/09/24 13:55 BP 134/90 H 08/09/24 13:55 Pulse Ox 98 08/09/24 13:55 Oxygen Delivery Method Room Air 08/09/24 13:55 BMI result Body Mass Index 36.0 Const General: cooperative, healthy appearing and comfortable Nutritional Appearance: obese morbidly obese Orientation/consciousness: patient oriented x3 Limitations: no limitations HEENT Head: Yes normocephalic and Yes atraumatic Mouth: moist mucous membranes Resp Effort & Inspection: normal respiratory effort and able to speak in complete sentences Auscultation: clear to auscultation bilaterally Cardio Rate: regular rate Rhythm: regular rhythm Skin General skin exam: no rashes or lesions noted Neuro General: patient oriented x3 Extrem Other: No active synovitis Mildly limited range of motion of right shoulder with positive empty can test, infraspinatus test and lift-off test Assessment & Plan Assessment & Plan (1) Seronegative rheumatoid arthritis: Comment: Methotrexate: Since 2011. 11/2019 present Humira: 04/2020 - 11/2020 active synovitis on exam Enbrel: 11/2020- present Plaquenil- 2019- present Code(s): M06.00 - Rheumatoid arthritis without rheumatoid factor, unspecified site Category: Medical Plan: This is a 43-year-old female with seronegative RA who presents for follow-up. On methotrexate 10 mg weekly, Enbrel 50 mg weekly, hydroxychloroquine 200 mg daily and folic acid 1 mg daily Doing well overall with no active synovitis Labs show minimal transaminitis Reduce methotrexate to 7.5 mg weekly Continue meds as prescribed otherwise Labs before next visit in 4 months (2) assisted methotrexate user: Code(s): Z79.899 - Other vermin exterminator (current) drug therapy Category: Medical Plan: Monitor safety labs (3) Long-term use of hydroxychloroquine: Comment: eye exam OK 02/2024 Code(s): Z79.899 - Other fci (current) drug therapy Category: Medical Plan: Follow-up regularly with credit collection specialist (4) Right rotator cuff tendinitis: Code(s): M75.81 - Other shoulder lesions, right shoulder Category: Medical Plan: Not interested in PT. I provided patient with a printout of home exercises. (5) High risk medication use: Code(s): Z79.899 - Other fci (current) drug therapy Category: Medical Plan: Side effects of Enbrel were discussed with the patient in detail including increased risk of infection, demyelinating disease, reactivation of latent TB, possible increased risk of solid and skin tumors. Patient fully aware. Advised patient to seek medical care JACKIE if patient has an infection and advised patient to stop the medication until the infection is resolved. Plan I spent 30 minutes reviewing patient's chart, evaluating patient, ordering diagnostic workup, counseling patient and documenting in the chart Orders: Orders Comprehensive Met. Panel 4 Months M06.00 - Rheumatoid arthritis without rheumatoid factor, unspecified site, Z79.899 - Other vermin exterminator (current) drug therapy Complete Blood Count Auto Diff 4 Months M06.00 - Rheumatoid arthritis without rheumatoid factor, unspecified site, Z79.899 - Other fci (current) drug therapy C Reactive Protein 4 Months M06.00 - Rheumatoid arthritis without rheumatoid factor, unspecified site, Z79.899 - Other fci (current) drug therapy Erythrocyte Sedimentation Rate 4 Months M06.00 - Rheumatoid arthritis without rheumatoid factor, unspecified site, Z79.899 - Other fci (current) drug therapy T Spot TB 4 Months Z11.7 - Encounter for testing for latent tuberculosis infection Coding Level of Care Code Est Pt Level 4 (80311) Complex EM visit Add On G2211 Diagnoses Seronegative rheumatoid arthritis M06.00 intermodal dispatcher methotrexate user Z79.899 Long-term use of hydroxychloroquine Z79.899 Right rotator cuff tendinitis M75.81 High risk medication use Z79.899
[2024-08-09 13:55] VITALS: BP 134/90; PULSE 101; O2SAT 98; BMI 36.0
== END 2024-08-09 14:11 | disposition home or self-care (01) ==
PROVIDERS: PCP Internal Medicine; Visit Provider Student in an Organized Health Care Education/Training Program
DX: M06.00 Rheumatoid arthritis without rheumatoid factor, unspecified site (principal); Z79.899 Other long term (current) drug therapy; M75.81 Other shoulder lesions, right shoulder
CPT/HCPCS: 99214

== ENCOUNTER → 2024-08-09 13:49 | Outpatient (BNVA) | payer MEDICAID, SELFPAY | PROVIDERS: PCP Internal Medicine; Visit Provider Student in an Organized Health Care Education/Training Program | DX: M06.00 Rheumatoid arthritis without rheumatoid factor, unspecified site (principal); M75.81 Other shoulder lesions, right shoulder; Z79.899 Other long term (current) drug therapy | CPT/HCPCS: 99212 ==

== ENCOUNTER 2024-12-14 08:50 | Outpatient (REF) | payer MEDICAID, SELFPAY ==
--- OUTSIDE RECORDS SUMMARY | 2024-12-14 09:20 | XMS_ITS | Encounter Summary ---
Author Organization [employer] Address [address] [facility] [address] [place] [address] Care Team Providers Care Recreation Facility Manager Name Role Phone Ally Rodriguez MD Primary Care Provide r Reason for Visit * Reason Comments Med Refill Encounter Details Date Type Department Care Team (Late st Contact Info) Description 07/15/2023 Refill [facility] MEDICINE [address], [place] [phone] Whitney Robins MD [address] [place], [place] [phone] Chronic low back pain, unspecified back pain laterality, unspecified whether sciatica present Social History Tobacco Use Types Packs/Day Years Used Date Smoking Tobacco: Never Passive Smoke Exposure: Never Smokeless Tobacco: Never Depression Answer Date Recorded Patient Health Questionnaire-9 Score 15 01/14/2023 Housing Stability Answer Date Recorded What is your housing situation today? I have esaukt tam 06/02/[address] you li ve. Do you have problems with any of the following? None of the above 06/02/2023 Food Insecurity Answer Date Recorded Within the past 12 months, y ou worried that your food would run out before you got money to buy more: Never True 06/02/2023 Within the past 12 months,th e food you bought just didn't last and you didn't have enough money to get more: Never True Transportation Answer Date Recorded In the past 12 months, has l ack of transportation kept you from medical appts, meetings, work or from getting things needed for daily living? No 06/02/2023 Utilities Answer Date Recorded In the past 12 months, has t he electric, gas, oil or water company threatened to shut off services in your home? No 06/02/2023 Depression Answer Date Recorded Patient Health Questionnaire-2 Score 4 01/14/2023 Comments Unknown Sex and Gender Information Value Date Recorded Sex Assigned at Female 06/17/2022 10:36 AM EDT Legal Sex Female 10:36 AM EDT Gender Identity Female 06/17/2022 10:36 AM EDT Sexual Orientation Choose not to disclose 2021 10:36 AM EDT documented as of this encounter Plan of Treatment Upcoming Encounters Date Type Department Care Team (Late st Contact Info) Description 12/16/2024 9:00 AM EDT Nutrition [facility] DIABETES/NTRN [address] [place] [address] Paola Hare, SONU [address] [place] [address] 12/20/2024 10:00 AM EDT Clinical Support [address] [address] 01/07/2025 9:00 AM EDT Immunization [address] [address] 02/07/2025 2:30 PM EDT Office Visit [address] [address] Ally Rodriguez MD [address] [place] [phone] documented as of this encounter Visit Diagnoses Diagnosis Chronic low back pain, unspecified back pain laterality, unspecified whether sciatica present documented in this encounter Additional Health Concerns Assessment Noted Time PHQ-9 Depression Total Score: 15 023 10:50 AM EDT documented as of this encounter Care Teams Recreation Facility Manager Relationship Specialty Start Date End Date Ally Rodriguez MD [address] [place] [id number] PCP - General Family Medicine 07/02/19 documented as of this encounter
--- OUTSIDE RECORDS SUMMARY | 2024-12-14 09:20 | XMS_ITS | Encounter Summary ---
Author Organization [employer] Address [address] [facility] [address] [place] [address] Care Team Providers Care Correspondence Specialist Name Role Phone Ally Rodriguez MD Primary Care Provide r Reason for Visit * Reason Comments Med Refill Encounter Details Date Type Department Care Team (Late st Contact Info) Description 03/18/2023 Refill [facility] MED & PEDS [address] [place], [place] [phone] Disha Fabian MD [address] [place], [place] [phone] Anxiety Social History Tobacco Use Types Packs/Day Years Used Date Smoking Tobacco: Never Passive Smoke Exposure: Never Smokeless Tobacco: Never Depression Answer Date Recorded Patient Health Questionnaire-9 Score 15 01/14/2023 Depression Answer Date Recorded Patient Health Questionnaire-2 [...] Encounters Date Type Department Care Team (Late Contact Info) Description 12/16/2024 9:00 AM EDT Nutrition [facility] DIABETES/NTRN [address] [place], [place] [phone] Paola Hare [address] [place], [place] [phone] 12/20/2024 10:00 AM EDT Clinical Support [address] [address] 01/07/2025 9:00 AM EDT Immunization [address] [address] 02/07/2025 2:30 PM EDT Office Visit [address] [address] Ally Rodriguez MD [address] [place] [phone] documented as of this encounter Visit Diagnoses Diagnosis Anxiety Anxiety state, unspecified documented in this encounter Additional Health Concerns Assessment Noted Time PHQ-9 Depression Total Score: 15 023 10:50 AM EDT documented as of this encounter Care Teams Correspondence Specialist Relationship Specialty Start Date End Date Ally Rodriguez MD [address] [place] [id number] PCP - General Family Medicine 07/02/19 documented as of this encounter
--- OUTSIDE RECORDS SUMMARY | 2024-12-14 09:20 | XMS_ITS | Clinical Summary ---
Author Organization [employer] Address [address] [facility] [address] [place] [address] Care Team Providers Care Purchasing Intern Name Role Phone Ally Rodriguez MD Primary Care Provide r Allergies Active Allergy Reactions Criticality Noted Date Comments Cat Dander 02/05/2021 Dog Epithelium (Canis Lupus Familiaris) 02/05/2021 Medications folic acid (Folvite) 1 MG tabletIndications :Rheumatoid arthritis, involving unspecified site, unspecified whether rheumatoid factor present (CMS/HCC) Take 1 tablet (1,000 mcg) by mouth in the morning. 30 tablet 3 2 Active albuterol (2.5 MG/3ML) 0.083% nebulizer solution Inhale 3 mL every 8 (eight) hours. 1 Active albuterol 108 (90 Base) MCG/ACT inhaler Inhale 2 puffs every 4 (four) hours if needed. 2 Active cyclobenzaprine (Flexeril) 10 MG tablet Take 1 tablet by mouth every 8 (eight) hours. 2 Active etanercept (Enbrel SureClick) 50 MG/ML injection Inject 1 mL under the skin once a week. Active methotrexate 2.5 MG tablet take 8 tablet by oral route every week 0 Active hydroxychloroquin e (Plaquenil) 200 MG tabletIndications :Seropositive rheumatoid arthritis (CMS/HCC) Take 1 tablet (200 mg) by mouth in the morning. 30 tablet 3 3 Active Alcohol Swabs (Alcohol Prep) 70 % padsIndications:T ype 2 diabetes mellitus without complication, without long-term current use of insulin (CMS/HCC) USE DIRECTED TWICE DAILY 100 each 5 4 Active FREESTYLE LITE test stripIndications: Type 2 diabetes mellitus without complication, without long-term current use of insulin ([facility]) TEST BLOOD SUGAR TWICE DAILY 100 strip 5 4 Active FeroSul 325 (65 Fe) MG tabletIndications :Iron deficiency anemia, unspecified iron deficiency anemia type TAKE 1 TABLET BY MOUTH AT BEDTIME 90 tablet 3 4 Active hydroCHLOROthiazi de (HYDRODiuril) 25 MG tabletIndications :Essential hypertension TAKE 1 TABLET BY MOUTH EVERY MORNING 90 tablet 3 4 Active D3 Super Strength 50 MCG (2000 UT) capsuleIndication s:Vitamin D deficiency TAKE 1 CAPSULE BY MOUTH AT BEDTIME 90 capsule 3 4 Active metFORMIN (Glucophage) 500 MG tabletIndications :Type 2 diabetes mellitus without complication, without long-term current use of insulin ([facility]) TAKE 1 TABLET BY MOUTH TWICE DAILY IN THE MORNING AND IN THE EVENING WITH FOOD 180 tablet 3 4 Active lidocaine (Lidoderm) 5 % patchIndications: Chronic bilateral low back pain without sciatica Apply 1 patch topically Once per day. 30 patch 2 4 Active Acetaminophen Extra Strength 500 MG tabletIndications :Chronic bilateral low back pain without sciatica TAKE 2 TABLETS BY MOUTH EVERY 8 HOURS NEEDED FOR PAIN 40 tablet 4 Active atorvastatin (Lipitor) 40 MG tablet TAKE 1 TABLET BY MOUTH AT BEDTIME 90 tablet 1 4 Active amitriptyline (Elavil) 10 MG tabletIndications :Chronic low back pain, unspecified back pain laterality, unspecified whether sciatica present TAKE 1 TABLET BY MOUTH AT BEDTIME 30 tablet 5 5 Active hydrOXYzine HCl (Atarax) 50 MG tabletIndications :Anxiety TAKE 1 TABLET BY MOUTH TWICE DAILY IN THE MORNING AND IN THE EVENING 60 tablet 2 5 Active Asmanex HFA 100 MCG/ACT aerosol INHALE 2 PUFFS BY MOUTH TWICE DAILY EVERY 12 HOURS. RINSE MOUTH AFTER USING. 13 g 5 5 Active lidocaine (Lidoderm) 5 % patchIndications: Chronic bilateral low back pain without sciatica Apply 1 patch topically Once per day. Remove & discard patch within 12 hours or as directed by . 30 patch 3 Active ibuprofen 800 MG tabletIndications :Chronic bilateral low back pain without sciatica Take 1 tablet (800 mg) by mouth every 8 (eight) hours if needed for mild pain. 30 tablet 2 5 01/02/20 25 Active cyclobenzaprine (Flexeril) 10 MG tabletIndications :Chronic bilateral low back pain without sciatica Take 0.5 tablets (5 mg) by mouth 3 times daily. 30 tablet 2 5 02/01/20 25 Active Hospital, Clinic, or Other Facility Administered Medication Ordered Dose Route Frequency Start Date End Date Status ketorolac (Toradol) injection 30 mgIndications:Chronic bilateral low back pain without sciatica 30 mg IM Once 12/02/2024 12/02/2024 Ended Active Problems Problem Noted Date Diagnosed Date Class 2 severe obesity due t o excess calories with serious comorbidity and body mass index (BMI) of 36.0 to 36.9 in adult 12/02/2024 Assessment & Plan (12/03/2024 3:22 PM EDT): Extensive counseling about healthy diet and exercise on today, I will refer her to city bailiff Other fatigue 04/01/2024 Assessment & Plan (04/16/2024 3:31 PM EDT): Improved: I advise to maintain hydration, drink plenty if water, I advise healthy diet and exercise Assessment & Plan (04/01/2024 2:41 PM EDT): Drink plenty of fluids and rest Labs ordered I will review them with her Dental caries into pulp 2023 Symptomatic irreversible pulpitis 11/04/2023 Other constipation 09/22/2023 Assessment & Plan (09/22/2023 5:09 PM EST): I advise to drink more water include more fiber on diet and increase activity Left hand pain 07/02/2023 Rash and nonspecific skin eruption 07/02/2023 Sore throat 07/02/2023 Assessment & Plan (07/02/2023 10:22 AM EST): Strep at office negtive Conservative measures tylenol PRN, saline gargles Encounter for screening mamm ogram for malignant neoplasm of breast 02/12/2023 Health care maintenance 02/12/2023 Assessment & Plan (02/12/2023 10:58 AM EDT): Patient will be schedule for PAP smear Type 2 diabetes mellitus without complication Assessment & Plan (09/22/2023 5:08 PM EST): - Lab Results Component Value Date HGBA1C 6.1 (A) 09/22/2023 HGBA1C 6.1 (A) 07/02/2023 HGBA1C 6.2 (A) 01/14/2023 - Lab Results Component Value Date MICROALBUR <5.0 07/02/2023 CREATININE 0.79 01/28/2023 - - Diabetic eye exam:up to date - Diabetic foot exam:pending - Continue lifestyle modifications - Continue current medications - Fibromyalgia 01/14/2023 Assessment & Plan (02/12/2023 10:59 AM EDT): Patient was educated about multidisciplinary approach for her condition, it was advise cardiovascular exercise, maintain hydration, treat anxiety/depression and take medications as directed Assessment & Plan (01/14/2023 11:50 AM EDT): Patient was educated about multidisciplinary approach for her condition, it was advise cardiovascular exercise, maintain hydration, treat anxiety/depression and take medications as directed Type 2 diabetes mellitus wit hout complication, without long-term current use of insulin 01/14/2023 Assessment & Plan (12/03/2024 3:23 PM EDT): Diabetes is: controlled - Lab Results Component Value Date HGBA1C 5.9 12/02/2024 HGBA1C 6.1 (A) 04/01/2024 HGBA1C 6.1 (A) 09/22/2023 - Lab Results Component Value Date MICROALBUR <5.0 07/02/2023 CREATININE 0.82 04/01/2024 -Changes: None - Diabetic eye exam: Pending - Diabetic foot exam: Pending - Continue lifestyle modifications - Continue current medications Assessment & Plan (04/01/2024 2:40 PM EDT): Diabetes is: controlled - Lab Results Component Value Date HGBA1C 6.1 (A) 04/01/2024 HGBA1C 6.1 (A) 09/22/2023 HGBA1C 6.1 (A) 07/02/2023 - Lab Results Component Value Date MICROALBUR <5.0 07/02/2023 CREATININE 0.79 01/28/2023 -Changes: none - Diabetic eye exam:up to date - Diabetic foot exam:pending - Continue lifestyle modifications - Continue current medications - Follow up: 3 months Assessment & Plan (07/02/2023 10:21 AM EST): - Lab Results Component Value Date HGBA1C 6.1 (A) 07/02/2023 HGBA1C 6.2 (A) 01/14/2023 HGBA1C 6.0 06/24/2022 - Lab Results Component Value Date MICROALBUR 1.0 03/25/2022 CREATININE 0.79 01/28/2023 - Diabetic eye exam: up to date - Diabetic foot exam: pending - Continue lifestyle modifications - Continue current medications Acute upper respiratory infection 07/24/2022 Anxiety 07/24/2022 Acute low back pain 07/24/2022 Dry cough 07/24/2022 Dyspnea on exertion 07/24/2022 Essential hypertension 07/24/2022 Assessment & Plan (12/03/2024 3:22 PM EDT): Blood pressure reading today is high, patient attributes this due to her pain I advised her low-sodium diet and to take hydrochlorothiazide every day plan is for her to come back in 2 weeks with blood pressure log if blood pressure is high and spite of the pain being controlled plan is to increase the dose of her medication Assessment & Plan (04/01/2024 2:41 PM EDT): Elevated today I advise: - Aerobic exercise to reduce BP. Initial goal of 30 min walk 3-5x/week. Increase as tolerated. - low-sodium diet (goal: <2g/day) and heart healthy diet such as DASH to reduce BP and prevent ASCVD. - Home BP monitoring 1-2 x day with goal of <140/90. - Seek immediate medical attention for chest pain, palpitations, SOB, syncope, or sudden changes in mental status. - Do not change or discontinue current prescriptions without first consulting health care provider Assessment & Plan (09/22/2023 5:09 PM EST): - Aerobic exercise to reduce BP. Initial goal of 30 min walk 3-5x/week. Increase as tolerated. - low-sodium diet (goal: <2g/day) and heart healthy diet such as DASH to reduce BP and prevent ASCVD. - Home BP monitoring 1-2 x day with goal of <140/90. - Seek immediate medical attention for chest pain, palpitations, SOB, syncope, or sudden changes in mental status. - Do not change or discontinue current prescriptions without first consulting health care provider Assessment & Plan (07/02/2023 10:21 AM EST): - Aerobic exercise to reduce BP. Initial goal of 30 min walk 3-5x/week. Increase as tolerated. - low-sodium diet (goal: <2g/day) and heart healthy diet such as DASH to reduce BP and prevent ASCVD. - Home BP monitoring 1-2 x day with goal of <140/90. - Seek immediate medical attention for chest pain, palpitations, SOB, syncope, or sudden changes in mental status. 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 Rheumatoid arthritis involvi ng multiple sites with positive rheumatoid factor 07/24/2022 Assessment & Plan (02/12/2023 10:58 AM EDT): Continue to follow with rheumatology Seropositive rheumatoid arthritis 07/24/2022 Chronic bilateral low back pain without sciatica 07/24/2022 Assessment & Plan (12/03/2024 3:24 PM EDT): Advised to apply heat on affected area, I will prescribe in office Toradol 30 mg IM I will prescribe ibuprofen 800 mg every 8 hours with full stomach I am instructed her to start her after 24 hours of this injection I also prescribed for her today Flexeril 10 mg every 8 hours patient is aware of side effects somnolence and that she cannot drive while on this medication Assessment & Plan (02/12/2023 10:58 AM EDT): Waiting for MRI Assessment & Plan (01/14/2023 11:51 AM EDT): XRAYs done before no abnormality patient has again acute on chronic pain I will order an MRI Encounters Date Type Department Care Team Description 12/02/2024 3:15 PM EDT Office Visit [facility] [address] [place] [phone] Ally Rodriguez MD Essential hypertension (Primary Dx); Type 2 diabetes mellitus without complication, without long-term current use of insulin ([facility]); Rheumatoid arthritis involving multiple sites with positive rheumatoid factor ([facility]); Chronic bilateral low back pain without sciatica; Class 2 severe obesity due to excess calories with serious comorbidity and body mass index (BMI) of 36.0 to 36.9 in adult ([facility]) 12/02/2024 Travel 2024 Telephone [facility] [address] [place] [phone] Ally Rodriguez MD Chart Prep 11/25/2024 Telephone [facility] [address] [place] [phone] Ally Rodriguez MD Appointment Request 11/01/2024 Refill [facility] [address] [place] [address] Ally Rodriguez MD 10/29/2024 Population Health Risk Score [facility] ([facility] Department [address] [place] [phone] Provider, Population Health Generic 10/16/2024 Refill [facility] [address] [place] [address] Ally Rodriguez MD Chronic low back pain, unspecified back pain laterality, unspecified whether sciatica present; Anxiety from Last 3 Months Immunizations Name Administration Dates Next Due Hep B, adult 08/06/2024,07/07/2024 Influenza Injectable Quadriv alant Preservative Free IIV4 MDCK 06/26/2018 Influenza injectable quadriv alent preservative free 07/02/2023,06/24/2022,07/24/2021,2018 Influenza, seasonal, injecta ble, preservative free 07/07/2024 Moderna Covid-19 Vaccine 12+ 07/24/2021,12/29/19 21,11/30/2020 Pfizer Covid-19 Vaccine 12+ 07/07/2024 Pneumococcal Conjugate PCV 13 05/02/2020 Tdap 06/26/2018 Family History Medical History Relation Name Comments Coronary artery disease Father Diabetes Father Hypertension Father Arthritis Mother Diabetes Mother Hypertension Mother Breast cancer Paternal Grandmother Glaucoma Neg Hx Relation Name Status Comments Father Mother Paternal Grandmother Social History Tobacco Use Types Packs/Day Years Used Date Smoking Tobacco: Never Passive Smoke Exposure: Never Smokeless Tobacco: Never Alcohol Use Standard Drinks/Week Comments Never 0 (1 standard drink = 0.6 oz pur e alcohol) Depression Answer Date Recorded Patient Health Questionnaire-9 Score 15 12/02/2024 Patient Health Questionnaire-9 Score 15 12/02/2024 Last PHQ-9: Questionnaire Data Not on file 0 12/02/2024 Housing Stability Answer Date Recorded What is your housing situation today? I have esaukt tam 12/02/[address] you li ve. Do you have problems with any of the following? None of the above 12/02/2024 Food Insecurity Answer Date Recorded Within the past 12 months, y ou worried that your food would run out before you got money to buy more: Never True 12/02/2024 Within the past 12 months,th e food you bought just didn't last and you didn't have enough money to get more: Never True Transportation Answer Date Recorded In the past 12 months, has l ack of transportation kept you from medical appts, meetings, work or from getting things needed for daily living? No 12/02/2024 Utilities Answer Date Recorded In the past 12 months, has t he electric, gas, oil or water company threatened to shut off services in your home? No 12/02/2024 Depression Answer Date Recorded Patient Health Questionnaire-2 Score 4 12/02/2024 Internet Access Answer Date Recorded Internet Access Q1 No 12/02/2024 Internet Access Q2 I do not want or need it 11/16 Comments Unknown Sex and Gender Information Value Date Recorded Sex Assigned at Female 06/17/2022 10:36 AM EDT Legal Sex Female 10:36 AM EDT Gender Identity Female 06/17/2022 10:36 AM EDT Sexual Orientation Choose not to disclose 2021 10:36 AM EDT Last Filed Vital Signs Vital Sign Reading Time Taken Comments Blood Pressure 152/94 12/02/2024 3:34 PM EDT Pulse 86 12/02/2024 3:09 PM EDT Temperature 36.4 ??C (97.6 ??F) 12/02/2024 3:09 PM ED T Respiratory Rate 18 12/02/2024 3:09 PM EDT Oxygen Saturation 98% 12/02/2024 3:09 PM EDT Inhaled Oxygen Concentration - - Weight 82.6 kg (182 lb 3.2 oz) 12/02/2024 3:09 P M EDT Height 149.9 cm (4' 11 ) 12/02/2024 3:09 PM EDT Body Mass Index 36.8 12/02/2024 3:09 PM EDT Plan of Treatment Upcoming Encounters Date Type Department Care Team (Late st Contact Info) Description 12/16/2024 9:00 AM EDT Nutrition [facility]ET[facility]/NTRN [address] [place] [address] Paola Hare, RD [address] [place] [address] 12/20/2024 10:00 AM EDT Clinical Support [facility] [address] [place] [phone] 01/07/2025 9:00 AM EDT Immunization [address] [phone] 02/07/2025 2:30 PM EDT Office Visit [address] [phone] Ally Rodriguez MD [address] [place] [address] Health Maintenance Due Date Last Done Comments CT Colonography 1978 Colonoscopy 1978 Colorectal Cancer Screening 1978 FIT DNA/Cologuard 1978 FIT 1978 FOBT 1978 Sigmoidoscopy 1978 Diabetes: Foot Exam 1988 Family Planning (PISQ) 1993 Pap Smear 11/27/1999 Cervical Cancer Screening 2008 HPV/Cotest 2008 Pneumococcal Vaccine: Pediatrics (0 to 5 Years) and At-Risk Patients (6 to 49) Years) (2 of 2 - PPSV23) 06/27/2020 05/02/2020 Dental Oral Exam 09/07/2021 03/06/2021 Dental Prophylaxis 09/16/2021 03/15/2021 Dental X-Ray: Bitewings 03/07/2022 03/06/2021, 02/16 Mammogram 02/25/2024 02/24/2023, 02/24/2023 Diabetes: Urine Protein Screening 07/02/2024 07/02/2023, 03/25/2022, 06/08/2021 Hepatitis B Vaccines (3 of 3 - 19+ 3-dose series) 01/04/2025 08/06/2024, 07/07/2024 Lipid Panel 04/01/2025 04/01/2024, 06/18, 06/26/2022, Additional history exists Diabetes: Hemoglobin A1C 06/03/2025 025, 04/01/2024, 09/22/2023, Additional history exists Alcohol/Substance Use Screening 12/02/2025 12/02/2024 Depression Screening 12/02/2025 12/02/2024, 12/03/19 25 SDOH Screening 12/02/2025 12/02/2024 Tobacco Screening 12/02/2025 12/02/2024 Eye Exam 12/09/2025 12/10/2023, 11/17, 12/10/2023, Additional history exists Dental X-Ray: Full Mouth 11/04/2026 11/04/2023, 02/16 DTaP/Tdap/Td Vaccines (2 - Td or Tdap) 06/26/2028 06/26/2018 Zoster Vaccines (1 of 2) 2028 RSV Patients and Patients Aged 60 years or older (1 - 1-dose 75+ series) 2053 HIV Screening Completed 04/01/2024 Hepatitis C Screening Completed 04/01/2024, 023 COVID-19 Vaccine Completed 07/07/2024, , 07/24/2021, Additional history exists Influenza Vaccine Completed 07/07/2024, , 06/24/2022, Additional history exists HIB Vaccines Aged Out No longer eligi ble based on patient's age to complete this topic HPV Vaccines Aged Out No longer eligi ble based on patient's age to complete this topic Hepatitis A Vaccines Aged Out No long er eligible based on patient's age to complete this topic IPV Vaccines Aged Out No longer eligi ble based on patient's age to complete this topic Meningococcal Vaccine Aged Out No randi aryan eligible based on patient's age to complete this topic RSV under 20 months Aged Out No longe r eligible based on patient's age to complete this topic Rotavirus Vaccines Aged Out No longer eligible based on patient's age to complete this topic Procedures Procedure Name Priority Date/Time Associated Diagnosis Comments POCT GLYCATED HEMOGLOBIN, TOTAL Routine 12/02/2024 3:10 PM EDT Type 2 diabetes mellitus without complication, without long-term current use of insulin ([facility]) POCT GLUCOSE Routine 12/02/2024 3:10 PM EDT Type 2 diabetes mellitus without complication, without long-term current use of insulin (CMS/HCC) HEPATITIS PANEL, GENERAL Routine 04/01/2024 2:43 PM EDT Other fatigue HIV 1/2 ANTIGEN/ANTIBODY, FOURTH GENERATION W/RFL Routine 04/01/2024 2:43 PM EDT Other fatigue LIPID PANEL WITH REFLEX TO DIRECT LDL Routine 04/01/2024 2:43 PM EDT Other fatigue PANORAMIC RADIOGRAPHIC IMAGE Routine 11/04/2023 11:30 AM EDT ALBUMIN, RANDOM URINE W/CREATININE Routine 07/02/2023 10:38 AM EST BI MAMMOGRAM SCREENING TOMOSYNTHESIS BILATERAL Routine 02/24/2023 9:40 AM EDT PROPHYLAXIS - ADULT Routine 03/15/2021 1 2:00 AM EDT INTRAORAL - COMPLETE SERIES OF RADIOGRAPHIC IMAGES Routine 03/06/2021 12:00 AM EDT COMPREHENSIVE ORAL EVALUATION - NEW OR ESTABLISHED PATIENT Routine 03/06/2021 12:00 AM EDT from Last 3 Months or Most Recently Relevant to Health Maintenance Results * POCT HGB A1C (12/02/2024 3:10 PM EDT) Hemoglobin A1C 5.9 4.0 - 6.0 % QC Media Lot # [id number] Lot# Expiration Date Blood 12/02/2024 3:10 PM EDT Ally Lema MD POINT OF CARE TEST EN TER/EDIT ORDERABLES Final Result * POCT Glucose (12/02/2024 3:10 PM EDT) Glucose Blood, POC 122 60 - 200 mg/dL QC Media Lot # [id number] Lot# Expiration Date Blood Capillary blood specimen / Unknown 12/02/2024 3:10 PM EDT Ally Lema MD POINT OF CARE TEST EN TER/EDIT ORDERABLES Final Result * (ABNORMAL) Lipid Panel with Reflex to Direct LDL (04/01/2024 2:43 PM EDT) Triglycerides 173(H) <150 mg/dL [facility] Comment:Desirable Triglyceri de: less than 150 mg/dLBorderline High Triglyceride 150-199 mg/dLHigh Triglyceride: 200-499 mg/dLVery High Triglyceride: greater than or equal to 5OO mg/dL Cholesterol 163 <200 mg/dL [facility] Comment:Desirable Cholestero l: less than 200 mg/dLBorderline High Cholesterol: 200-239 mg/dLHigh Cholesterol: greater than 239 mg/dL LDL Cholesterol Calculated 90 <100 mg/dL [facility] Comment:Desirable LDL: less than 100 mg/dLNear Optimal/Above Optimal LDL: 110- 129 mg/dLBorderline High LDL: 130-159 mg/dLHigh LDL: 160-189 mg/dLVery High LDL: greater than or equal to 190 mg/dL HDL Cholesterol 39(L) >40 mg/dL [facility] Comment:Desirable HDL: great er than 40 mg/dL Note: This HDL assay may give artificially low results in patients with liver disease. Blood 04/01/2024 2:43 PM EDT 04/01/2024 4:00 PM EDT us Ally Lema MD LAB BLOOD ORDERABLES Final Result [facility] [address] [place] [phone] * Hepatitis Panel, General (04/01/2024 2:43 PM EDT) Hepatitis A IgM Nonreactive Nonreactive [facility] Comment:IgM antibodies to ASHBY V not detected; does not exclude earlyacute or recovered HAV infection. ~Hepatitis B Surface Antibody NONREACTIVE Nonreactive [facility] Comment:Nonreactive: < 8.00 mIU/mL Hepatitis B Core Antibody Nonreactive Nonreactive [facility] Hepatitis C Antibody Nonreactive Nonreactive [facility] Comment:Antibodies to HCV no t detected; does not exclude early acuteHCV infection. Hepatitis B Surface Ag Negative Negative [facility] Blood 04/01/2024 2:43 PM EDT 04/01/2024 3:54 PM EDT Ally Lema MD LAB BLOOD ORDERABLES Final Result [facility] [address] [place] [phone] * HIV-1/2 Antigen and Antibodies, Fourth Generation, with Reflexes (04/01/2024 2:43 PM EDT) HIV AB/AG Nonreactive Nonreactive [facility] Comment:HIV-1 p24 Ag and/or HIV-1/HIV-2 Ab not detected.A test result that is nonreactive does not exclude thepossibility of exposure to or infection with HIV-1 and/orHIV-2. Nonreactive results in this assay for individualswith prior exposure to HIV-1 and/or HIV-2 may be due toantigen and antibody levels that are below the limit ofdetection of this assay.The [employer] HIV Ag/Ab Combo assay result andsupplemental assay results should be interpreted inconjunction with the patient's clinical presentation,history and other laboratory results. If the results areinconsistent with clinical evidence, additional testing issuggested to confirm the result. Blood Venous blood specimen / Unknown 04/01/2024 2:43 PM EDT 04/01/2024 3:54 PM EDT us Ally eLma MD LAB BLOOD ORDERABLES Final Result Performing Organization Address [facility] Co de Phone Number [facility] [address] [place] [phone] * Albumin, Random Urine W/Creatinine (07/02/2023 10:38 AM EST) Creatinine, Urine 69.16 mg/dL [facility] Microalbumin Urine <5.0 mg/L [facility] Microalbum Creatinine Ratio Ur TNP <30 ug/mg cr [facility] Comment:Unable to calculate albumin/creatinine ratio due to lowmicroalbumin or creatinine result. 07/02/2023 10:3 8 AM EST 07/02/2023 11:04 AM EST us Ally Lema MD LAB URINE ORDERABLES Final Result [facility] [address] [place] [phone] * BI Mammogram Screening Tomosynthesis Bilateral (02/24/2023 9:40 AM EDT) Anatomical Region Laterality Modality Breast Bilateral Mammography 02/24/2023 9:40 AM EDT Narrative 03/15/2023 2:12 PM EDT ? [facility] ? [address] ?[place] [phone] ? Mammography Report ? Signed ? Patient: Tania Mack ?MR#: [id number] ?? [id number] ? : 1980 ?Acct:[id number] ? Age/Sex: 42 / F ?ADM Date: 02/24/23 ? Loc: HO.MAMMO ? Attending Dr: Ally Lema MD ? Ordering Physician: Ally Rodriguez MD ?Results: ? Date of Service: 02/24/23 ?Follow Up: ? Procedure(s): MM tomosynthesis screening BI ?? Accession Number(s): [id number] ? cc: Ally Rodriguez MD ? EXAMINATION: ?? MM SCREENING DIGITAL BREAST TOMOSYNTHESIS, BILATERAL ? CLINICAL INFORMATION: ? Screening. Asymptomatic. ? The lifetime risk of breast cancer based on the Tyrer-Cuzick Model is ?? 10.6%. ? COMPARISON: ?? Mammography: This study is compared with prior exams dating back to ?? 2018. ? TECHNIQUE: ?? Digital breast tomosynthesis is performed in both the craniocaudal and ?? mediolateral oblique views along with computer-aided detection (CAD). ?? Synthesized 2D images are generated from the tomosynthesis. ? FINDINGS: ?? There are scattered areas of fibroglandular density (ACR BI-RADS breast ?? composition Category b). ? There are no significant masses, abnormal calcifications, or other ?? abnormalities. ? MM/MM tomosynthesis screening BI ?? IMPRESSION: ?? No mammographic evidence of malignancy. ? ASSESSMENT: ? BI-RADS BI-RADS 1 - Negative ? RECOMMENDATION: ?? Routine annual mammography screening. ? 1 year F/U ? This examination should not preclude the clinical evaluation of a ?? suspicious palpable abnormality. ? This patient's information was entered into a reminder system with a ?? target due date for their next mammogram. ? Dictated By: ?May Bone MD ? Signed By: ?<Electronically signed by May Bone MD in OV> ? 03/15/23 1409 ? DD/ 0940 ? TD/TT: ? Commodities Trader: ? Procedure Note Donte Jin - 03/15/2023 [facility] [address] [place], [place] [address] Mammography Report Signed Patient: Tashia MackR#: [id number] : 1980Acct:[id number] Age/Sex: 42 / FADM Date: 02/24/23 Loc: [facility] Attending Dr: Ally Lema MD Ordering Physician: Ally Rodriguezesults: Date of Service: 02/24/23Follow Up: Procedure(s): MM tomosynthesis screening BI Accession Number(s): [id number] cc: Ally Rodriguez MD EXAMINATION: MM SCREENING DIGITAL BREAST TOMOSYNTHESIS, BILATERAL CLINICAL INFORMATION: Screening. Asymptomatic. The lifetime risk of breast cancer based on the Tyrer-Cuzick Model is 10.6%. COMPARISON: Mammography: This study is compared with prior exams dating back to 2019. TECHNIQUE: Digital breast tomosynthesis is performed in both the craniocaudal and mediolateral oblique views along with computer-aided detection (CAD). Synthesized 2D images are generated from the tomosynthesis. FINDINGS: There are scattered areas of fibroglandular density (ACR BI-RADS breast composition Category b). There are no significant masses, abnormal calcifications, or other abnormalities. MM/MM tomosynthesis screening BI IMPRESSION: No mammographic evidence of malignancy. ASSESSMENT: BI-RADS BI-RADS 1 - Negative RECOMMENDATION: Routine annual mammography screening. 1 year F/U This examination should not preclude the clinical evaluation of a suspicious palpable abnormality. This patient's information was entered into a reminder system with a target due date for their next mammogram. Dictated By: May Bone MD Signed By: <Electronically signed by May Bone MD in OV> 03/15/23 1409 DD/ 0940 TD/TT: Commodities Trader: Ally Lema MD IMG BI PROCEDURES Pablito pebbles Result - Final from Last 3 Months or Most Recently Relevant to Health Maintenance Insurance Stam[employer] C3 Care Teams Purchasing Intern Relationship Specialty Start Date End Date Ally Rodriguez MD [address] [place] [phone] PCP - General Family Medicine 07/02/19
--- OUTSIDE RECORDS SUMMARY | 2024-12-14 09:20 | XMS_ITS | Encounter Summary ---
Author Organization [employer] Address [address] [facility] 7t [place] [address] Care Team Providers Care Blasting Entry Specialist Name Role Phone Ally Rodriguez MD Primary Care Provide r Reason for Visit * Reason Comments Med Refill Encounter Details Date Type Department Care Team (Late st Contact Info) Description 11/10/2023 Refill [facility] ADULT DENTAL [address] [place], [place] [phone] Aravind Simpson DDS [address] [place] [address] Social History Tobacco Use Types Packs/Day Years Used Date Smoking Tobacco: Never Passive Smoke Exposure: Never Smokeless Tobacco: Never Alcohol Use Standard Drinks/Week Comments Never 0 (1 standard drink = 0.6 oz pur e alcohol) Depression Answer Date Recorded Patient Health Questionnaire-9 Score 15 01/14/2023 Housing Stability Answer Date Recorded What is your housing situation today? I have esau tam 06/02/[address] you [...] AM EDT documented as of this encounter Miscellaneous Notes * Telephone Encounter - Aravind Simpson DDS - 11/10/2023 11:18 AM EDT Approving, but needs appt for additional refills. documented in this encounter Plan of Treatment Upcoming Encounters Date Type Department Care Team (Late st Contact Info) Description 12/16/2024 9:00 AM EDT Nutrition [facility] DIABETES/NTRN 505 [place] [address] Paola Hare, RD [address] [place] [address] 12/20/2024 10:00 AM EDT Clinical Support [facility] MEDICINE [address] [place] [address] 01/07/2025 9:00 AM EDT Immunization [facility] [address] [place] [address] 02/07/2025 2:30 PM EDT Office Visit [facility] [address] [place] [phone] Ally Rodriguez MD [address] [place] [address] documented as of this encounter Visit Diagnoses Not on filedocumented in this encounter Additional Health Concerns Assessment Noted Time PHQ-9 Depression Total Score: 15 023 10:50 AM EDT documented as of this encounter Care Teams Blasting Entry Specialist Relationship Specialty Start Date End Date Ally Rodriguez MD 230 [place] [address] PCP - General Family Medicine 07/02/19 documented as of this encounter
--- OUTSIDE RECORDS SUMMARY | 2024-12-14 09:20 | XMS_ITS | Encounter Summary ---
Author Organization [employer] Address [address] [facility] 7t [place] [address] Care Team Providers Care Warehouse Analyst Name Role Phone Ally Rodriguez MD Primary Care Provide r Reason for Visit * Reason Comments Med Refill Encounter Details Date Type Department Care Team (Late Contact Info) Description 01/16/2023 Refill [facility] [address] [place], [place] [phone] Name, MD Darshan 230 [place] [address] Chronic low back pain, unspecified back pain [...] not to disclose 2021 10:36 AM EDT COVID-19 Exposure Response Date Recorded In the last 10 days, have yo u been in contact with someone who was confirmed or suspected to have Coronavirus/COVID-19? No / Unsure 01/14/2023 10:33 AM EDT documented as of this encounter Plan of Treatment Upcoming Encounters Date Type Department Care Team (Late Contact Info) Description 12/16/2024 9:00 AM EDT Nutrition [facility] 505 [place] [address] Paola Hare, SONU [address] [place] [address] 12/20/2024 10:00 AM EDT Clinical Support [address] [address] 01/07/2025 9:00 AM EDT Immunization [address] [address] 02/07/2025 2:30 PM EDT Office Visit [address] [address] Ally Rodriguez MD [address] [place] [phone] documented as of this encounter Visit Diagnoses Diagnosis Chronic low back pain, unspecified back pain laterality, unspecified whether sciatica present documented in this encounter Additional Health Concerns Assessment Noted Time PHQ-9 Depression Total Score: 15 023 10:50 AM EDT documented as of this encounter Care Teams Warehouse Analyst Relationship Specialty Start Date End Date Ally Rodriguez MD [address] [place] [phone] PCP - General Family Medicine 07/02/19 documented as of this encounter
--- OUTSIDE RECORDS SUMMARY | 2024-12-14 09:20 | XMS_ITS | Encounter Summary ---
Author Organization [employer] Address 75 [facility] 7t [place] [address] Care Team Providers Care Instructor Adjunct Pharmacy Technician Name Role Phone Ally Rodriguez MD Primary Care Provide r Encounter Details Date Type Department Care Team (Late Contact Info) Description 02/25/2023 Orders Only [facility] 505 [place] [address] Siri Grant LPN Social History Tobacco Use Types Packs/Day Years [...] Info) Description 12/16/2024 9:00 AM EDT Nutrition [facility] DIABETES/NTRN [address] [place] [address] [place] [address] 12/20/2024 10:00 AM EDT Clinical Support [facility] MED[facility] [address] [place] [address] [phone] 01/07/2025 9:00 AM EDT Immunization [facility] 230 [place] [address] 02/07/2025 2:30 PM EDT Office Visit [facility] MED[facility] 230 [place] [address] Ally Rodriguez MD [address] [place] [phone] documented as of this encounter Visit Diagnoses Not on filedocumented in this encounter Additional Health Concerns Assessment Noted Time PHQ-9 Depression Total Score: 15 023 10:50 AM EDT documented as of this encounter Care Teams Instructor Adjunct Pharmacy Technician Relationship Specialty Start Date End Date Ally Rodriguez MD [address] [place] [phone] PCP - General Family Medicine 07/02/19 documented as of this encounter
--- OUTSIDE RECORDS SUMMARY | 2024-12-14 09:20 | XMS_ITS | Encounter Summary ---
Author Organization [employer] Address 75 [facility] 7t [place] [address] Care Team Providers Care Patient Relations Representative Name Role Phone Ally Rodriguez MD Primary Care Provide r Reason for Visit * Reason Comments Med Refill Encounter Details Date Type Department Care Team (Late Contact Info) Description 12/05/2022 Refill [facility] MED[facility] [address] [place] [address] [phone] Yonatan Ross MD 230 [place], [place] [phone] Type 2 diabetes mellitus without complication, without long-term current use of insulin ([facility]); Essential hypertension Social History Tobacco Use Types Packs/Day Years Used Date Smoking Tobacco: Never Smokeless Tobacco: Never Comments Unknown Sex and Gender Information Value [...] Info) Description 12/16/2024 9:00 AM EDT Nutrition [facility] DIABETES/NTRN [address] [place], [place] [phone] Paola Hare RD 230 [place], [place] [phone] 12/20/2024 10:00 AM EDT Clinical Support [facility] MEDICINE [address] [place], [place] [phone] 01/07/2025 9:00 AM EDT Immunization [address] [address] 02/07/2025 2:30 PM EDT Office Visit [address] [address] Ally Rodriguez MD [address] [place] [address] [phone] documented as of this encounter Visit Diagnoses Diagnosis Type 2 diabetes mellitus without complication, without long-term current use of insulin ([facility]) Essential hypertension Unspecified essential hypertension documented in this encounter Care Teams Patient Relations Representative Relationship Specialty Start Date End Date Ally Rodriguez MD [address] [place] [address] [phone] PCP - General Family Medicine 07/02/19 documented as of this encounter
--- OUTSIDE RECORDS SUMMARY | 2024-12-14 09:20 | XMS_ITS | Encounter Summary ---
Author Organization [employer] Address [address] [facility] 7t [place] [address] Care Team Providers Care Groundskeeper Porter Name Role Phone Ally Rodriguez MD Primary Care Provide r Reason for Visit * Reason Comments Med Refill Encounter Details Date Type Department Care Team ([facility] st Contact Info) Description 06/17/2023 Refill [facility] MEDICINE 230 [place], [place] [phone] Ally Rodriguez MD 230 [place], [place] [phone] Anxiety Social History Tobacco Use Types Packs/Day [...] Info) Description 12/16/2024 9:00 AM EDT Nutrition [facility] DIABETES/NTRN 505 [place] [address] [place] [address] 12/20/2024 10:00 AM EDT Clinical Support [address] [address] 01/07/2025 9:00 AM EDT Immunization [address] [address] 02/07/2025 2:30 PM EDT Office Visit [address] [address] Ally Rodriguez MD [address] [place] [address] documented as of this encounter Visit Diagnoses Diagnosis Anxiety Anxiety state, unspecified documented in this encounter Additional Health Concerns Assessment Noted Time PHQ-9 Depression Total Score: 15 023 10:50 AM EDT documented as of this encounter Care Teams Groundskeeper Porter Relationship Specialty Start Date End Date Ally Rodriguez MD [address] [place] [phone] PCP - General Family Medicine 07/02/19 documented as of this encounter
--- OUTSIDE RECORDS SUMMARY | 2024-12-14 09:20 | XMS_ITS | Encounter Summary ---
Author Organization [employer] Address 75 [facility] 7t [place] [address] Care Team Providers Care Fertilizer Mixer Name Role Phone Ally Rodriguez MD Primary Care Provide r Encounter Details Date Type Department Care Team (Latest Contact Info) Description 03/06/2021 Abstract [facility] CONVERSIONS Dental, Provider, DDS Social History Tobacco Use Types Packs/Day Years Used Date Smoking Tobacco: Never Assessed Comments Unknown Sex and Gender Information Value [...] Info) Description 12/16/2024 9:00 AM EDT Nutrition [facility] DIABETES/NTRN 505 [place] [address] [place] [address] 12/20/2024 10:00 AM EDT Clinical Support [facility] MEDICINE [address] [place] [address] 01/07/2025 9:00 AM EDT Immunization [address] [address] 02/07/2025 2:30 PM EDT Office Visit [address] [phone] Ally Rodriguez MD [address] [place] [address] [phone] documented as of this encounter Visit Diagnoses Not on filedocumented in this encounter Care Teams Fertilizer Mixer Relationship Specialty Start Date End Date Ally Rodriguez MD 230 [place], [place] [phone] PCP - General Family Medicine 07/02/19 documented as of this encounter
--- OUTSIDE RECORDS SUMMARY | 2024-12-14 09:20 | XMS_ITS | Encounter Summary ---
Author Organization [employer] Address [address] [facility] [address] 7[address] [place] [address] Care Team Providers Care Steersman Name Role Phone Ally Rodriguez MD Primary Care Provide r Reason for Visit * Reason Comments Med Refill Encounter Details Date Type Department Care Team ([facility] [address] Contact Info) Description 01/16/2023 Refill [facility] MEDICINE 230 [place] [address] Ally Rodriguez MD 230 [place] [address] Moderate persistent asthma without complication Social History Tobacco Use Types Packs/Day Years [...] Upcoming Encounters Date Type Department Care Team ([facility] [address] Contact Info) Description 12/16/2024 9:00 AM EDT Nutrition [facility] DIABETES/NTRN 505 [place] [address] Paola Hare, SONU [address] [place] [address] 12/20/2024 10:00 AM EDT Clinical Support [address] [address] 01/07/2025 9:00 AM EDT Immunization [address] [address] 02/07/2025 2:30 PM EDT Office Visit [address] [address] Ally Rodriguez MD [address] [place] [phone] documented as of this encounter Visit Diagnoses Diagnosis Moderate persistent asthma without complication documented in this encounter Additional Health Concerns Assessment Noted Time PHQ-9 Depression Total Score: 15 023 10:50 AM EDT documented as of this encounter Care Teams Steersman Relationship Specialty Start Date End Date Ally Rodriguez MD [address] [place] [phone] PCP - General Family Medicine 07/02/19 documented as of this encounter
[2024-12-14 10:34] LABS: MANUAL DIFF FLAG NO
[2024-12-14 10:52] LABS: Basophils Absolute Auto 0.1 X10*3/uL (0.0-0.2); Basophils Percent Auto 0.7 % (0-2); Eosinophils Absolute Auto 0.7 X10*3/uL (0.0-0.4); Eosinophils Percent Auto 7.9 % (0-4); Hematocrit 35.6 % (37.0-47.0); Hemoglobin 10.7 g/dl (12.0-16.0); Imm Gran Abs Auto 0.02 X10*3/uL (0.00-0.03); Imm Gran Pct Auto 0.2 % (0.0-0.4); Lymphocytes Absolute Auto 2.8 X10*3/uL (1.2-4.9); Lymphocytes Percent Auto 33.9 % (20-40); Mean Corpuscular HGB Conc 30.1 g/dl (31.0-35.0); Mean Corpuscular Hemoglobin 22.6 pg (27.0-33.0); Mean Corpuscular Volume 75.3 fL (80.0-98.0); Mean Platelet Volume 11.5 fL (9.4-12.3); Monocytes Absolute Auto 0.7 X10*3/uL (0.1-1.2); Neutrophils Absolute Auto 4.1 x10*3/uL (2.0-8.3); Neutrophils Percent Auto 49.3 % (45-73); Platelet Count 351 X10*3/uL (160-400); Red Blood Count 4.73 X10*6/uL (4.20-5.50); Red Cell Distribution Width 15.6 % (11.0-16.0); White Blood Count 8.2 X10*3/uL (4.8-10.8)
[2024-12-14 11:11] LABS: Alanine Aminotransferase 35 U/L (0-31); Alkaline Phosphatase 80 U/L (39-117); Anion Gap 10 (12-20); Aspartate Amino Transferase 28 U/L (5-31); Bilirubin Total 0.4 mg/dL (0.0-1.0); Blood Urea Nitrogen 10 mg/dL (9-16); Carbon Dioxide 24 mmol/L (22-29); Chloride 107 mmol/L (96-108); Estimated Glomerular Filt Rate > 60; Glucose Random 115 mg/dL (60-115); Potassium 4.2 mmol/L (3.3-5.1); Sodium 137 mmol/L (135-145); Total Protein 8.1 g/dL (6.5-8.0)
[2024-12-14 11:31] LABS: Erythrocyte Sedimentation Rate 18 MM/HR (0-20)
[2024-12-17 01:54] LABS: TS Negative Control Passed; TS Panel A 0; TS Panel B 0; TS Positive Control Passed; TSpotTB Negative (Negative)
== END 2024-12-14 08:51 | disposition home or self-care (01) ==
LOC: HO.10HDL 08:50
PROVIDERS: Visit Provider Student in an Organized Health Care Education/Training Program
DX: M06.00 Rheumatoid arthritis without rheumatoid factor, unspecified site (principal); Z79.899 Other long term (current) drug therapy; Z11.7 Encounter for testing for latent tuberculosis infection
CPT/HCPCS: 36415; 80053; 85025; 85652; 86140; 86481

== ENCOUNTER 2024-12-23 10:45 | Outpatient (AMB) | payer MEDICAID, SELFPAY ==
--- NOTE | 2024-12-23 10:48 | MHC.OFFVIS ---
Vital Signs 12/23/24 10:53 Height 4 ft 11 in Weight 180 lb 12.465 oz BMI 36.5 BP 132/80 Blood Pressure Location Rt brachial Position Sitting Pulse 67 Pulse Source Pulse Oximeter Pulse Oximetry (%) 98 Oxygen Delivery Method Room Air Intake Visit Reasons: RA Intake Note: Patient presents for RA follow up. [employer] Required: Yes Joint [employer] Language: Hairspring Setter Services: [employer] Present [employer] Name: Kayden [id number] Information Interpreted: non-clinical & clinical Allergies gabapentin Adverse Reaction (Intermediate, Verified 12/23/24 10:52) Gastrointestinal Upset Medication List - Last Reconciled 12/23/24 by Yashira Lee MD acetaminophen 1,000 mg PO Q8H PRN alcohol swabs (Alcohol Prep Pads) 0 pad topical BID amitriptyline 10 mg PO BEDTIME atorvastatin 40 mg PO BEDTIME baclofen 10 mg PO BID blood sugar diagnostic (FreeStyle Lite Strips) As directed cholecalciferol (vitamin D3) (Vitamin D3) 50 mcg PO QPM etanercept (Enbrel SureClick) 50 mg subcut QWEEK ferrous sulfate (FeroSul) 325 mg PO QAM fluticasone propionate 110 mcg/actuation (Flovent HFA) 2 puffs inhalation BID folic acid 1 mg PO QAM hydrochlorothiazide 25 mg PO QAM hydroxychloroquine 200 mg PO QAM hydroxyzine HCl 50 mg PO lidocaine 5% (Lidoderm) 0 patches topical metformin 500 mg PO BID methotrexate sodium 10 mg (4 x 2.5 mg) PO QWEEK omeprazole 40 mg PO QAM venlafaxine ER 75 mg PO QAM HPI Comments Details: Patient is a 44-year-old female with hyperlipidemia, diabetes, hypertension, fibromyalgia and seronegative rheumatoid arthritis here today for follow up Interval History: patient last seen 08/09/[address] Guevara. At that time she was follow up of her seronegative rheumatoid arthritis on methotrexate 10 mg weekly, Enbrel 50 mg weekly, hydroxychloroquine 200 mg daily and folic acid 1 mg daily. At that time she continued to complain of back pain. Had received injections in her back with pain management with no relief and she was also complaining of pain to her right shoulder. She was given some exercises for this. Today she reports improved right shoulder pain. This exercises helped. Continues to have back pain. A.m. stiffness lasting 20 minutes Rheumatologic History: Seronegative RA Patient with a history of seronegative rheumatoid arthritis diagnosed in 2009. X-rays of hands done in 2012 with erosions. Methotrexate: Since 2011. 11/2019 present Humira: 04/2020 - 11/2020 active synovitis on exam Enbrel: 11/2020- present Plaquenil- 2019- present Current Rheumatology Medication(s): Humira 40 mg every other week Methotrexate 10 mg weekly Folic acid 1 mg daily Hydroxychloroquine 200 mg daily [facility] Medical History (Updated 12/23/24 @ 11:20 by Yashira Lee MD) Screening for osteoporosis PERRY positive Seronegative rheumatoid arthritis Surgical History Hx of tubal ligation Family History Father Diabetes Rheumatoid arthritis CVD (cardiovascular disease) Mother Diabetes Pulmonary embolism Social History Household Members: Other Household Members Other:: daughter Housing: Apartment Alcohol intake: current Patient Tobacco Use Status: Never used Tobacco Current occupational status: disabled 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 Review of Systems Const Details: Review of Systems Constitutional: Denies fever, chills, weight loss ENT: Denies vision changes, eye pain or eye redness, dental caries, dry mouth GI: Denies nausea, vomiting, diarrhea, abdominal pain, change in BM Pulm: Denies SOB, RAMIREZ, hemoptysis, wheezing Cards: Denies chest pain, palpitations Skin: Denies Raynaud's, rash, nail changes, photosensitivity, VEGETABLE HARVEST MACHINE OPERATOR: Denies headaches, weakness, paresthesias, recurrent falls MSK: as per HPI All other systems reviewed and are unremarkable except noted above Physical Exam Vital Signs: Last Vital Signs Pulse 67 12/23/24 10:53 BP 132/80 12/23/24 10:53 Pulse Ox 98 12/23/24 10:53 Oxygen Delivery Method Room Air 12/23/24 10:53 BMI result Body Mass Index 36.5 Vital signs reviewed Physical Examination CONSTITUITIONAL Patient alert and cooperative. Well appearing and in no apparent painful distress HEENT Conjunctiva and sclera clear. Pupils equal round and reactive to light. No lymphadenopathy. CHEST/RESPIRATORY SYSTEM Normal respiratory effort and able to speak in complete sentences. Clear to auscultation bilaterally. No crackles, rales, rhonchi, wheezes heard. CARDIAC SYSTEM Regular rate and rhythm. S1 and S2 heard no murmurs. Radial pulses intact bilaterally MSK Hands: Able to make a fist. No synovitis noted to the MCPs, PIPs or DIPs. No tenderness to palpation of these joints. No deformities noted. Wrists: Full range of motion at the wrists without pain. No tenderness to palpation or synovitis noted to the wrists. Elbows: Full range of motion without pain. No tenderness, weakness, swelling, increased warmth or erythema. Shoulders: Full range of active range of motion without pain. No tenderness, weakness, swelling, increased warmth or erythema. Knees: Full range of motion. No tenderness, swelling, increased warmth or erythema.?No effusion or crepitations Ankles: Full range of motion. No tenderness, swelling, increased warmth or erythema.? Feet: Negative squeeze test. No tenderness to palpation or swelling of the MTPs. Tender points:?No tenderness to palpation of the bilateral trapezius, supraspinatus, greater trochanters, anterior costochondral junctions, bilateral gluteal areas, bilateral suboccipital muscle insertions SKIN Skin intact without rashes. Results Reviewed Results Reviewed: Laboratory Tests 12/14/24 08:53 WBC 8.2 RBC 4.73 Hgb 10.7 L Hct 35.6 L Plt Count 351 ESR 18 Sodium 137 Potassium 4.2 Chloride 107 Carbon Dioxide 24 BUN 10 Creatinine 0.68 AST 28 ALT 35 H C-Reactive Protein 0.30 Infectious serologies 04/01/24 12/14/24 14:43 08:53 Hepatitis A IgM Ab Nonreactive Hep Bs Antigen Negative Hep Bs Antibody NONREACTIVE Hep B Core Total Ab Nonreactive Hepatitis C Ab (EIA) Nonreactive TB Test (T-Spot) Com Negative Assessment & Plan Assessment & Plan (1) Seronegative rheumatoid arthritis: Comment: Methotrexate: Since 2011. 11/2019 present Humira: 04/2020 - 11/2020 active synovitis on exam Enbrel: 11/2020- present Plaquenil- 2019- present Code(s): M06.00 - Rheumatoid arthritis without rheumatoid factor, unspecified site Category: Medical Plan: #Seronegative RA Patient is a 44-year-old female with seronegative rheumatoid arthritis here today for follow up. Currently in remission on Enbrel, hydroxychloroquine and methotrexate. 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 therapy Category: Medical Plan: #Long-term Use of Hydroxychloroquine Discussed with patient the risks and benefits of hydroxychloroquine in managing the rheumatic condition Benefits include: - Reduced pain, reduce mortality, maintenance of remission and reduction of flares Risks include: - GI upset, skin hyperpigmentation, retinal toxicity (especially after more than 5 years of use), myopathy Advised yearly ophthalmology visits Last ophthalmology visit: 07/2024 (3) Encounter for monitoring of etanercept therapy: Code(s): M79.7 - Fibromyalgia Category: Medical Plan: #Long-term Use of TNF Inhibitors: Etanercept Discussed with the patient the benefits and risks of TNF inhibitors for the management of the rheumatic condition Benefits include reduce pain, maintenance of remission and reduction of flares as well as progression of the disease Risks include injection sites/infusion reactions, serious infections (such as bacterial infections, opportunistic infections), malignancy, delaminating syndromes, autoimmune phenomena, CHF exacerbations, palmar plantar psoriasis and cytopenias Recommended rotating injection sites, and holding medication during and for up to 1 week after resolution of a febrile illness or open skin wound Plan I spent 30 minutes reviewing the record and labs, taking a history, examining the patient, discussing the treatment plan, ordering diagnostic work up and documenting in the medical record Orders: Orders Complete Blood Count Auto Diff 4 Months M06.00 - Rheumatoid arthritis without rheumatoid factor, unspecified site Comprehensive Met. Panel 4 Months M06.00 - Rheumatoid arthritis without rheumatoid factor, unspecified site C Reactive Protein 4 Months M06.00 - Rheumatoid arthritis without rheumatoid factor, unspecified site Erythrocyte Sedimentation Rate 4 Months M06.00 - Rheumatoid arthritis without rheumatoid factor, unspecified site Hepatitis A,B,C Profile 4 Months M06.00 - Rheumatoid arthritis without rheumatoid factor, unspecified site T Spot TB 4 Months M06.00 - Rheumatoid arthritis without rheumatoid factor, unspecified site Coding Level of Care Code Est Pt Level 3 (59606) Complex EM visit Add On G2211 Diagnoses Seronegative rheumatoid arthritis M06.00 Long-term use of hydroxychloroquine Z79.899 Encounter for monitoring of etanercept therapy Z51.81; Z79.620
[2024-12-23 10:53] VITALS: BP 132/80; PULSE 67; O2SAT 98; BMI 36.5
--- OUTSIDE RECORDS SUMMARY | 2024-12-23 12:13 | XMS_ITS | Encounter Summary ---
Author Organization [employer] Address [address] 7[address] [place] [address] Care Team Providers Care Craft Superintendent Name Role Phone Ally Rodriguez MD Primary Care Provide r Encounter Details Date Type Department Care Team (Latest Contact Info) Description 12/20/2024 Travel Social History Tobacco Use Types Packs/Day Years [...] housing situation today? I have esau tam 12/02/[address] you [...] Care Team (Late st Contact Info) Description 01/07/2025 9:30 AM EDT Immunization [facility] [address] [place] [address] 01/13/2025 9:00 AM EDT Nutrition [facility] DIABETES/NTRN 505 [place] [address] Paola Hare, SONU [address] [place] [address] 02/07/2025 2:30 PM EDT Office Visit [facility] [address] [place] [address] Ally Rodriguez MD [address] [place] [address] documented as of this encounter Visit Diagnoses Not on filedocumented in this encounter Additional Health Concerns Assessment Noted Time PHQ-9 Depression Total Score: 15 025 3:35 PM EDT documented as of this encounter Care Teams Craft Superintendent Relationship Specialty Start Date End Date Ally Rodriguez MD [address] [place] [phone] PCP - General Family Medicine 07/02/19 documented as of this encounter
--- OUTSIDE RECORDS SUMMARY | 2024-12-23 12:13 | XMS_ITS | Encounter Summary ---
Author Organization [employer] Address [address] [facility] 7t [place] [address] Care Team Providers Care Engineer Sergeant Name Role Phone Ally Rodriguez MD Primary Care Provide r Reason for Visit * Reason Comments Med Refill Encounter Details Date Type Department Care Team (Late Contact Info) Description 01/16/2023 Refill [facility]INE [address] [place] [address] [phone] Name, MD Darshan [address] [place] [phone] Chronic low back pain, unspecified back pain [...] Department Care Team (Late Contact Info) Description 01/07/2025 9:30 AM EDT Immunization [facility] [address] [place] [address] 01/13/2025 9:00 AM EDT Nutrition [facility] DIABETES/NTRN [address] [place] [address] [place] [address] 02/07/2025 2:30 PM EDT Office Visit [facility]INE [address] [place] [address] Ally Rodriguez MD [address] [place] [address] documented as of this encounter Visit Diagnoses Diagnosis Chronic low back pain, unspecified back pain laterality, unspecified whether sciatica present documented in this encounter Additional Health Concerns Assessment Noted Time PHQ-9 Depression Total Score: 15 023 10:50 AM EDT documented as of this encounter Care Teams Engineer Sergeant Relationship Specialty Start Date End Date Ally Rodriguez MD [address] [place] [phone] PCP - General Family Medicine 07/02/19 documented as of this encounter
--- OUTSIDE RECORDS SUMMARY | 2024-12-23 12:13 | XMS_ITS | Encounter Summary ---
Author Organization [employer] Address [address] [facility] 7t [place] [address] Care Team Providers Care Bicycle Rental Clerk Name Role Phone Ally Rodriguez MD Primary Care Provide r Reason for Visit * Reason Comments Med Refill Encounter Details Date Type Department Care Team (Late st Contact Info) Description 06/17/2023 Refill [facility] MEDICINE [address] [place], [place] [phone] Ally Rodriguez MD [address] [place], [place] [phone] Anxiety Social History Tobacco Use Types Packs/Day [...] Info) Description 01/07/2025 9:30 AM EDT Immunization [facility] MEDICINE [address] [place] [address] 01/13/2025 9:00 AM EDT Nutrition [facility]C DIABETES/NTRN [address] [place] [address] Paola Hare, RD [address] [place] [address] 02/07/2025 2:30 PM EDT Office Visit [facility] MEDICINE [address] [place] [phone] Ally Rodriguez MD [address] [place] [address] documented as of this encounter Visit Diagnoses Diagnosis Anxiety Anxiety state, unspecified documented in this encounter Additional Health Concerns Assessment Noted Time PHQ-9 Depression Total Score: 15 023 10:50 AM EDT documented as of this encounter Care Teams Bicycle Rental Clerk Relationship Specialty Start Date End Date Ally Rodriguez MD [address] [place] [phone] PCP - General Family Medicine 07/02/19 documented as of this encounter
--- OUTSIDE RECORDS SUMMARY | 2024-12-23 12:13 | XMS_ITS | Encounter Summary ---
Author Organization [employer] Address [address] [facility] 7t [place] [address] Care Team Providers Care Concrete Mixer Truck Driver Name Role Phone Ally Rodriguez MD Primary Care Provide r Reason for Visit * Reason Comments Med Refill Encounter Details Date Type Department Care Team (Late st Contact Info) Description 12/05/[address] [facility] [address] [place], [place] [phone] Yonatan Ross MD [address] [place], [place] [phone] Type 2 diabetes mellitus without complication, without long-term current use of insulin ([facility]); Essential hypertension Social History Tobacco Use Types [...] Info) Description 01/07/2025 9:30 AM EDT Immunization [facility] [address] [place], [place] [phone] 01/13/2025 9:00 AM EDT Nutrition [facility] DIABETES/NTRN [address] [place], [place] [phone] Paola H[address] [place], [place] [phone] 02/07/2025 2:30 PM EDT Office Visit [facility]INE [address] [place] [address] Ally Rodriguez MD [address] [place], [place] [phone] documented as of this encounter Visit Diagnoses Diagnosis Type 2 diabetes mellitus without complication, without long-term current use of insulin ([facility]) Essential hypertension Unspecified essential hypertension documented in this encounter Care Teams Concrete Mixer Truck Driver Relationship Specialty Start Date End Date Ally Rodriguez MD [address] [place], [place] [phone] PCP - General Family Medicine 07/02/19 documented as of this encounter
--- OUTSIDE RECORDS SUMMARY | 2024-12-23 12:13 | XMS_ITS | Encounter Summary ---
Author Organization [employer] Address [address] 7[address] [place] [address] Care Team Providers Care Staff Certified Nurse Midwife Name Role Phone Ally Rodriguez MD Primary Care Provide r Reason for Visit * Reason Comments Blood Pressure Check Encounter Details Date Type Department Care Team (Latest Contact Info) Description 12/20/2024 10:00 AM EDT Clinical Support [facility] MEDICINE [address] [place], [place] [phone] Brittney Grimm, RODO [address] [place], [place] [phone] Essential hypertension [I10] Social History Tobacco Use Types Packs/Day Years [...] AM EDT documented as of this encounter Last Filed Vital Signs Vital Sign Reading Time Taken Comments Blood Pressure 143/89 12/20/2024 10:23 AM EDT Pulse 77 12/20/2024 10:23 AM EDT Temperature - - Respiratory Rate 20 12/20/2024 10:23 AM EDT Oxygen Saturation 99% 12/20/2024 10:23 AM EDT Inhaled Oxygen Concentration - - Weight - - Height - - Body Mass Index - - documented in this encounter Progress Notes * Brittney Grimm RN - 12/20/2024 10:00 AM EDT S: Pt here for BP check nurse visit. At last appointment 12/02/24, pt's BP noted to be 153/93 and onrepeat 152/94. Recommendations made on that day were to continue hydrochlorothiazide and return forRN BP check in 2 weeks (patient informed PCP at last appointment that BP was most likely elevated d/t being in pain). Pt is currently taking hydrochlorothiazide 25mg daily. Today, pt denies any blurred vision, shortness of breath, chest pain, dizziness, or headaches. Pt reports compliance with BP medication regimen, confirms that BP medications were taken today around 9-10am. Patient denies smoking. O: Left Arm BP 143/89, Pulse 77, RR 20/min and SpO2 99%. Heart tones regular, lungs clear bilaterally, no edema noted, skin warm pink and dry. A: Compliance with BP medication regimen BP not at goal of <130/80 Reinforcement of Lifestyle modification including low sodium diet and exercise. P: Consulted with provider (Dr. Chopra) regarding BP findings. Orders at this time are to continue checking BP at home daily (3-4 hours after medication) and bring BP log to next appointment with PCP on 02/07/25. Patient reports BP at home is in the normal range , reports yesterday BP at home [id number] at 10:15AM. Pt advised to continue taking meds as directed and follow a low fat/sodium diet a nd exercise as tolerated. Pt to f/u with PCP as needed. Pt agrees with plan and verbalized understanding. Brittney Grimm RN documented in this encounter Plan of Treatment Upcoming Encounters Date Type Department Care Team (Late st Contact Info) Description 01/07/2025 9:30 AM EDT Immunization [facility] [address] [place] [address] 01/13/2025 9:00 AM EDT Nutrition [facility] DIABETES/NTRN [address] [place] [address] [place] [address] 02/07/2025 2:30 PM EDT Office Visit [facility] [address] [place] [address] Ally Rodriguez MD [address] [place] [phone] documented as of this encounter Visit Diagnoses Diagnosis Essential hypertension [I10] Unspecified essential hypertension documented in this encounter Additional Health Concerns Assessment Noted Time PHQ-9 Depression Total Score: 15 12/02/2 025 3:35 PM EDT documented as of this encounter Care Teams Staff Certified Nurse Midwife Relationship Specialty Start Date End Date Ally Rodriguez MD [address] [place] [phone] PCP - General Family Medicine 07/02/19 documented as of this encounter
--- OUTSIDE RECORDS SUMMARY | 2024-12-23 12:13 | XMS_ITS | Encounter Summary ---
Author Organization [employer] Address [address] [facility] 7t [place] [address] Care Team Providers Care Carriage Dogger Name Role Phone Ally Rodriguez MD Primary Care Provide r Reason for Visit * Reason Comments Med Refill Encounter Details Date Type Department Care Team (Late st Contact Info) Description 03/18/[address] [facility] MED & PEDS [address] [place], [place] [phone] Disha Fabian MD [address] [place] [address] Anxiety Social History Tobacco Use Types Packs/Day [...] Info) Description 01/07/2025 9:30 AM EDT Immunization [facility] [address] [place], [place] [phone] 01/13/2025 9:00 AM EDT Nutrition [facility] DIABETES/NTRN 505 [place], [place] [phone] Paola H[address] [place] [address] 02/07/2025 2:30 PM EDT Office Visit [facility] MED[facility]INE [address] [place] [address] Ally Rodriguez MD [address] [place] [address] documented as of this encounter Visit Diagnoses Diagnosis Anxiety Anxiety state, unspecified documented in this encounter Additional Health Concerns Assessment Noted Time PHQ-9 Depression Total Score: 15 023 10:50 AM EDT documented as of this encounter Care Teams Carriage Dogger Relationship Specialty Start Date End Date Ally Rodriguez MD [address] [place] [phone] PCP - General Family Medicine 07/02/19 documented as of this encounter
--- OUTSIDE RECORDS SUMMARY | 2024-12-23 12:13 | XMS_ITS | Encounter Summary ---
Author Organization [employer] Address [address] [facility] 7t [place] [address] Care Team Providers Care Double Bottom Driver Name Role Phone Ally Rodriguez MD Primary Care Provide r Encounter Details Date Type Department Care Team (Late Contact Info) Description 02/25/2023 Orders Only [facility] & PEDS [address] [place], [place] [phone] Siri Grant LPN Social History Tobacco Use [...] Info) Description 01/07/2025 9:30 AM EDT Immunization [facility] [address] [place], [place] [phone] 01/13/2025 9:00 AM EDT Nutrition [facility] DIABETES/NTRN [address] [place], [place] [phone] Paola Hare, SONU [address] [place] [address] 02/07/2025 2:30 PM EDT Office Visit [facility] [address] [place] [address] Ally Rodriguez MD [address] [place] [address] documented as of this encounter Visit Diagnoses Not on filedocumented in this encounter Additional Health Concerns Assessment Noted Time PHQ-9 Depression Total Score: 15 023 10:50 AM EDT documented as of this encounter Care Teams Double Bottom Driver Relationship Specialty Start Date End Date Ally Rodriguez MD [address] [place] [address] PCP - General Family Medicine 07/02/19 documented as of this encounter
--- OUTSIDE RECORDS SUMMARY | 2024-12-23 12:13 | XMS_ITS | Encounter Summary ---
Author Organization [employer] Address [address] [facility] 7t [place] [address] Care Team Providers Care Technical Project Coordinator Name Role Phone Ally Rodriguez MD Primary Care Provide r Reason for Visit * Reason Comments Med Refill Encounter Details Date Type Department Care Team (Late st Contact Info) Description 07/15/2023 Refill [facility] MED[facility]INE 230 [place], [place] [phone] Whitney Robins MD 230 [place], [place] [phone] Chronic low back pain, unspecified back pain [...] Info) Description 01/07/2025 9:30 AM EDT Immunization [facility] [address] [place] [address] 01/13/2025 9:00 AM EDT Nutrition [facility] DIABETES/NTRN [address] [place] [address] Paola Hare, SONU [address] [place] [address] 02/07/2025 2:30 PM EDT Office Visit [facility] MED[facility]INE [address] [place] [address] Ally Rodriguez MD [address] [place] [phone] documented as of this encounter Visit Diagnoses Diagnosis Chronic low back pain, unspecified back pain laterality, unspecified whether sciatica present documented in this encounter Additional Health Concerns Assessment Noted Time PHQ-9 Depression Total Score: 15 023 10:50 AM EDT documented as of this encounter Care Teams Technical Project Coordinator Relationship Specialty Start Date End Date Ally Rodriguez MD [address] [place] [address] [phone] PCP - General Family Medicine 07/02/19 documented as of this encounter
--- OUTSIDE RECORDS SUMMARY | 2024-12-23 12:13 | XMS_ITS | Encounter Summary ---
Author Organization [employer] Address [address] [facility] 7t [place] [address] Care Team Providers Care Rock Crusher Name Role Phone Ally Rodriguez MD Primary Care Provide r Encounter Details Date Type Department Care Team (Latest Contact Info) Description 03/06/2021 Abstract [facility] CONVERSIONS Dental, Provider, DDS Social [...] Info) Description 01/07/2025 9:30 AM EDT Immunization [facility] MEDICINE [address] [place] [phone] 01/13/2025 9:00 AM EDT Nutrition [facility] CHC DIABETES/NTRN [address] [place] [address] Paola Hare, RD [address] [place] [address] 02/07/2025 2:30 PM EDT Office Visit [facility] MEDICINE [address] [place] [address] [phone] Ally Rodriguez MD [address] [place] [address] documented as of this encounter Visit Diagnoses Not on filedocumented in this encounter Care Teams Rock Crusher Relationship Specialty Start Date End Date Ally Rodriguez MD [address] [place] [address] PCP - General Family Medicine 07/02/19 documented as of this encounter
--- OUTSIDE RECORDS SUMMARY | 2024-12-23 12:13 | XMS_ITS | Encounter Summary ---
Author Organization [employer] Address 75 [facility] 7t [place] [address] Care Team Providers Care Staff Scientist Name Role Phone Ally Rodriguez MD Primary Care Provide r Reason for Visit * Reason Comments Med Refill Encounter Details Date Type Department Care Team (Late Contact Info) Description 01/16/2023 Refill [facility] MEDICINE [address] [place] [address] [phone] Ally Rodriguez MD [address] [place], [place] [phone] Moderate persistent asthma without complication Social History [...] Info) Description 01/07/2025 9:30 AM EDT Immunization [facility] MEDICINE [address] [place] [address] 01/13/2025 9:00 AM EDT Nutrition [facility] CHC DIABETES/NTRN [address] [place] [address] [place] [address] 02/07/2025 2:30 PM EDT Office Visit [facility] MEDICINE [address] [place] [address] Ally Rodriguez MD [address] [place] [address] documented as of this encounter Visit Diagnoses Diagnosis Moderate persistent asthma without complication documented in this encounter Additional Health Concerns Assessment Noted Time PHQ-9 Depression Total Score: 15 023 10:50 AM EDT documented as of this encounter Care Teams Staff Scientist Relationship Specialty Start Date End Date Ally Rodriguez MD [address] [place] [phone] PCP - General Family Medicine 07/02/19 documented as of this encounter
--- OUTSIDE RECORDS SUMMARY | 2024-12-23 12:13 | XMS_ITS | Encounter Summary ---
Author Organization [employer] Address 75 [facility] 7t [place] [address] Care Team Providers Care Employment Agency Manager Name Role Phone Ally Rodriguez MD Primary Care Provide r Reason for Visit * Reason Comments Med Refill Encounter Details Date Type Department Care Team (Late st Contact Info) Description 11/10/2023 Refill [facility] ADULT DENTAL [address] [place], [place] [phone] Aravind Simpson DDS [address] [place] [address] Social History Tobacco Use Types Packs/Day Years [...] Info) Description 01/07/2025 9:30 AM EDT Immunization [facility] MEDICINE [address] [place] [phone] 01/13/2025 9:00 AM EDT Nutrition [facility] CHC DIABETES/NTRN [address] [place] [address] [place] [phone] 02/07/2025 2:30 PM EDT Office Visit [facility] MEDICINE [address] [place] [phone] Ally Rodriguez MD [address] [place] [phone] documented as of this encounter Visit Diagnoses Not on filedocumented in this encounter Additional Health Concerns Assessment Noted Time PHQ-9 Depression Total Score: 15 023 10:50 AM EDT documented as of this encounter Care Teams Employment Agency Manager Relationship Specialty Start Date End Date Ally Rodriguez MD [address] [place] [address] [phone] PCP - General Family Medicine 07/02/19 documented as of this encounter
--- OUTSIDE RECORDS SUMMARY | 2024-12-23 12:13 | XMS_ITS | Clinical Summary ---
Author Organization [employer] Address 75 [facility] 7t [place] [address] Care Team Providers Care Cylinder Dyer Name Role Phone Ally Rodriguez MD Primary [...] without long-term current use of insulin (CMS/HCC) TEST BLOOD SUGAR TWICE DAILY 100 strip [...] complication, without long-term current use of insulin (CMS/[facility]) TAKE 1 TABLET BY MOUTH TWICE DAILY [...] within 12 hours or as directed by MD. 30 patch 3 04/17/202 5 Active ibuprofen 800 MG tabletIndications :Chronic bilateral [...] on today, I will refer her to drill press hand Other fatigue 04/01/2024 Assessment & Plan (04/16/2024 [...] Encounters Date Type Department Care Team Description 12/20/2024 10:00 AM EDT Clinical Support [address] [address] Brittney Grimm RN Essential hypertension [I10] 12/20/2024 Travel 12/16/[address] [address] Ally Rodriguez MD Appointment Confirmation 12/14/2024 Travel 12/02/2024 3:15 PM EDT Office Visit [address] [address] Ally Rodriguez MD Essential hypertension (Primary Dx); Type 2 diabetes mellitus without complication, without long-term current use of insulin ([facility]); Rheumatoid arthritis involving multiple sites with positive rheumatoid factor ([facility]); Chronic bilateral low back pain without sciatica; Class 2 severe obesity due to excess calories with serious comorbidity and body mass index (BMI) of 36.0 to 36.9 in adult (CMS/HCC) 12/02/2024 Travel [address] [address] Ally Rodriguez MD Chart Prep 11/25/[address] [address] Ally Rodriguez MD Appointment Request 11/01/[address] [address] Ally Rodriguez MD 10/29/2024 Population Health Risk Score Community [facility] (C[facility]) Department [address] [place] [address] Provider, Population Health Generic 10/16/2024 Refill [facility] MEDICINE [address] [place] [address] Ally Rodriguez MD Chronic low back pain, [...] Pulse 77 12/20/2024 10:23 AM EDT Temperature 36.4 ??C (97.6 ??F) 12/02/2024 3:09 PM ED T Respiratory Rate 20 12/20/2024 10:23 AM EDT [...] Info) Description 01/07/2025 9:30 AM EDT Immunization [facility] MEDICINE [address] [place] [address] 01/13/2025 9:00 AM EDT Nutrition [facility] CHC DIABETES/NTRN [address] [place] [address] Paola Hare, SONU [address] [place] [address] 02/07/2025 2:30 PM EDT Office Visit [facility] MEDICINE [address] [place] [address] Ally Rodriguez MD [address] [place] [address] Health Maintenance Due Date Last Done Comments [...] without long-term current use of insulin (CMS/HCC) POCT GLUCOSE Routine 12/02/2024 3:10 PM EDT [...] Media Lot # [id number] Lot# Expiration Date , Blood 12/02/2024 3:10 PM EDT Ally Lema MD POINT OF CARE TEST EN TER/EDIT ORDERABLES Final Result * POCT Glucose (12/02/2024 3:10 PM EDT) Glucose Blood, POC 122 60 - 200 mg/dL QC Media Lot # [id number] Lot# Expiration Date 025 Blood Capillary blood specimen / Unknown 12/02/2024 3:10 PM EDT us Ally Lema MD POINT OF CARE TEST EN TER/EDIT ORDERABLES Final Result * (ABNORMAL) Lipid Panel with Reflex to Direct LDL (04/01/2024 2:43 PM EDT) Triglycerides 173(H) <150 mg/dL [facility] Comment:Desirable Triglyceri de: less than 150 mg/dLBorderline High Triglyceride 150-199 mg/dLHigh Triglyceride: 200-499 mg/dLVery High Triglyceride: greater than or equal to 5OO mg/dL Cholesterol 163 <200 mg/dL [facility] Comment:Desirable Cholestero l: less than 200 mg/dLBorderline High Cholesterol: 200-239 mg/dLHigh Cholesterol: greater than 239 mg/dL LDL Cholesterol Calculated 90 <100 mg/dL [facility] Comment:Desirable LDL: less than 100 mg/dLNear Optimal/Above Optimal LDL: 110- 129 mg/dLBorderline High LDL: 130-159 mg/dLHigh LDL: 160-189 mg/dLVery High LDL: greater than or equal to 190 mg/dL HDL Cholesterol 39(L) >40 mg/dL [facility] Comment:Desirable HDL: great er than 40 mg/dL Note: This HDL assay may give artificially low results in patients with liver disease. Blood 04/01/2024 2:43 PM EDT 04/01/2024 4:00 PM EDT Ally Lema MD LAB BLOOD ORDERABLES Final Result [facility] [address] [place] [phone] * Hepatitis Panel, General (04/01/2024 2:43 PM EDT) Hepatitis A IgM Nonreactive Nonreactive [facility] Comment:IgM antibodies to ASHBY V not detected; does not exclude earlyacute or recovered HAV infection. ~Hepatitis B Surface Antibody NONREACTIVE Nonreactive [facility] Comment:Nonreactive: < 8.00 mIU/mL Hepatitis B Core Antibody Nonreactive Nonreactive [facility] Hepatitis C Antibody Nonreactive Nonreactive [facility] Comment:Antibodies to HCV no t detected; does not exclude early acuteHCV infection. Hepatitis B Surface Ag Negative Negative [facility] Blood 04/01/2024 2:43 PM EDT 04/01/2024 3:54 PM EDT us Ally Lema MD LAB BLOOD ORDERABLES Final Result Performing Organization Address [facility]/ZIP Co de Phone Number [facility] [address] [place] [address] [phone] * HIV-1/2 Antigen and Antibodies, Fourth Generation, with Reflexes (04/01/2024 2:43 PM EDT) HIV AB/AG Nonreactive Nonreactive [facility] Comment:HIV-1 p24 Ag and/or HIV-1/HIV-2 Ab not detected.A test result that is nonreactive does not exclude thepossibility of exposure to or infection with HIV-1 and/orHIV-2. Nonreactive results in this assay for individualswith prior exposure to HIV-1 and/or HIV-2 may be due toantigen and antibody levels that are below the limit ofdetection of this assay.The [employer] HIV Ag/Ab Combo assay result andsupplemental assay results should be interpreted inconjunction with the patient's clinical presentation,history and other laboratory results. If the results areinconsistent with clinical evidence, additional testing issuggested to confirm the result. Blood Venous blood specimen / Unknown 04/01/2024 2:43 PM EDT 04/01/2024 3:54 PM EDT us Ally Lmea MD LAB BLOOD ORDERABLES Final Result Performing Organization Address City/[facility]/ZIP Co de Phone Number [facility] [address] [place] [address] [phone] * Albumin, Random Urine W/Creatinine (07/02/2023 10:38 AM EST) Creatinine, Urine 69.16 mg/dL [facility] Microalbumin Urine <5.0 mg/L [facility] Microalbum Creatinine Ratio Ur TNP <30 ug/mg cr [facility] Comment:Unable to calculate albumin/creatinine ratio due to lowmicroalbumin or creatinine result. 07/02/2023 10:3 8 AM EST 07/02/2023 11:04 AM EST us Ally Lema MD LAB URINE ORDERABLES Final Result [facility] [address] [place] [address] [phone] * BI Mammogram Screening Tomosynthesis Bilateral (02/24/2023 9:40 AM EDT) Anatomical Region Laterality Modality Breast Bilateral Mammography 02/24/2023 9:40 AM EDT Narrative 03/15/2023 2:12 PM EDT ? [facility] [place] ? [address] ?[place] [address] ? Mammography Report ? Signed ? Patient: Tania Mack ?MR#: [id number] ?? [id number] ? : 1980 ?Acct:[id number] ? Age/Sex: 42 / F ?ADM Date: 07/10/23 ? Loc: HO.MAMMO ? Attending Dr: Ally Lema MD ? Ordering Physician: Ally Rodriguez MD ?Results: ? Date of Service: 07/10/23 ?Follow Up: ? Procedure(s): MM tomosynthesis screening BI ?? Accession Number(s): [id number] ? cc: Ally Rodriguez MD ? EXAMINATION: ?? MM SCREENING DIGITAL BREAST TOMOSYNTHESIS, BILATERAL ? CLINICAL INFORMATION: ? Screening. Asymptomatic. ? The lifetime risk of breast cancer based on the Tyrer-Cuzick Model is ?? 10.6%. ? COMPARISON: ?? Mammography: This study is compared with prior exams dating back to ?? 2019. ? TECHNIQUE: ?? Digital breast tomosynthesis is [...] 1409 ? DD/ 0940 ? TD/TT: ? Truck Body Builder Apprentice: ? Procedure Note Donte Jin - 03/15/2023 [place] [facility] [address] [place], [place] [address] Mammography Report Signed Patient: Celia Mack#: [id number] : 1980Acct:[id number] Age/Sex: 42 / FADM Date: 02/24/23 Loc: HO.MAMMO Attending Dr: Ally Lema MD Ordering Physician: Ally Rodriguezesults: Date of Service: 02/24/23Follow Up: Procedure(s): MM tomosynthesis screening BI Accession Number(s): [id number] cc: Ally Rodriguez MD EXAMINATION: MM SCREENING [...] in OV> 03/15/23 1409 DD/ 0940 TD/TT: Truck Body Builder Apprentice: us Ally Lema MD IMG BI PROCEDURES Pablito pebbles Result - Final from Last 3 Months or Most Recently Relevant to Health Maintenance Insurance [employer] Care Teams Cylinder Dyer Relationship Specialty Start Date End Date Ally Rodriguez MD [address] [place] [phone] PCP - General Family Medicine 07/02/19
== END 2024-12-23 11:19 | disposition home or self-care (01) ==
LOC: HO.RHE 10:46
PROVIDERS: PCP Internal Medicine; Visit Provider Student in an Organized Health Care Education/Training Program
DX: M06.00 Rheumatoid arthritis without rheumatoid factor, unspecified site (principal); Z79.899 Other long term (current) drug therapy; Z51.81 Encounter for therapeutic drug level monitoring; Z79.620 Long term (current) use of immunosuppressive biologic
CPT/HCPCS: 99213

== ENCOUNTER → 2024-12-23 10:45 | Outpatient (BNVA) | payer MEDICAID, SELFPAY | PROVIDERS: PCP Internal Medicine; Visit Provider Student in an Organized Health Care Education/Training Program | DX: Z51.81 Encounter for therapeutic drug level monitoring (principal); M06.00 Rheumatoid arthritis without rheumatoid factor, unspecified site; Z79.620 Long term (current) use of immunosuppressive biologic; Z79.899 Other long term (current) drug therapy | CPT/HCPCS: 99212 ==

== ENCOUNTER 2025-03-23 18:02 | Outpatient (REF) | payer MEDICAID, SELFPAY ==
[2025-03-24 09:27] LABS: Bacterial Vaginosis PCR NEGATIVE (Negative); Candida Group PCR NOT DETECTED (Not Detect); Candida glab krusei PCR NOT DETECTED (Not Detect); Trichomonas vaginalis PCR NOT DETECTED (Not Detect)
[2025-03-24 09:55] LABS: CT PCR NOT DETECTED (Not Detect.); NG PCR NOT DETECTED (Not Detect.)
== END 2025-03-23 18:03 | disposition home or self-care (01) ==
LOC: HO.HHCLNP 18:02
PROVIDERS: Visit Provider Internal Medicine
DX: Z12.4 Encounter for screening for malignant neoplasm of cervix (principal); Z11.3 Encounter for screening for infections with a predominantly sexual mode of transmission; Z11.8 Encounter for screening for other infectious and parasitic diseases; Z11.51 Encounter for screening for human papillomavirus (HPV)
CPT/HCPCS: 81515; 87491; 87591; 87626; 88175

== ENCOUNTER 2025-04-27 10:19 | Outpatient (REF) | payer MEDICAID, SELFPAY ==
[2025-04-27 13:33] LABS: MANUAL DIFF FLAG NO
[2025-04-27 13:53] LABS: Hematocrit 32.9 % (37.0-47.0); Hemoglobin 10.3 g/dl (12.0-16.0); Imm Gran Abs Auto 0.02 X10*3/uL (0.00-0.03); Imm Gran Pct Auto 0.2 % (0.0-0.4); Lymphocytes Absolute Auto 3.0 X10*3/uL (1.2-4.9); Mean Corpuscular HGB Conc 31.3 g/dl (31.0-35.0); Mean Corpuscular Hemoglobin 22.1 pg (27.0-33.0); Mean Corpuscular Volume 70.4 fL (80.0-98.0); NRBC Abs Auto 0.000 X10*3/uL (0.0-0.012); NRBC Pct Auto 0.0 /100WBC (0.0-0.2); Platelet Count 320 X10*3/uL (160-400); Red Blood Count 4.67 X10*6/uL (4.20-5.50); White Blood Count 9.6 X10*3/uL (4.8-10.8)
[2025-04-27 18:47] LABS: Alanine Aminotransferase 21 U/L (0-31); Albumin Level 4.1 g/dL (3.5-5.0); Alkaline Phosphatase 77 U/L (39-117); Anion Gap 11 (12-20); Aspartate Amino Transferase 21 U/L (5-31); Blood Urea Nitrogen 8 mg/dL (9-16); Calcium 9.0 mg/dL (8.4-10.2); Carbon Dioxide 25 mmol/L (22-29); Chloride 107 mmol/L (96-108); Estimated Glomerular Filt Rate > 60; Potassium 3.7 mmol/L (3.3-5.1); Sodium 139 mmol/L (135-145); Total Protein 8.1 g/dL (6.5-8.0)
[2025-04-28 08:46] LABS: HBS Num1 30.82 mIU/mL (0-7.99); HBc Num1 0.18 S/CO (0.00-0.79); HBsAGNum1 0.50 S/CO (0.00-0.99); Hepatitis A Antibody IgM 0.24 Index (0-0.79); Hepatitis B Surface Antigen Negative (Negative); ~HepC Num1 0.12 S/CO (0.00-0.79); ~Hepatitis A Antibody IgM Nonreactive (Nonreactive); ~Hepatitis B Surface Antibody REACTIVE (Nonreactive); ~Hepatitis C Antibody Nonreactive (Nonreactive)
[2025-04-30 03:48] LABS: TS Negative Control Passed; TS Panel A 0; TS Panel B 0; TS Positive Control Passed; TSpotTB Negative (Negative)
== END 2025-04-27 10:20 | disposition home or self-care (01) ==
LOC: HO.HKASLDS 10:19
PROVIDERS: Family Provider Internal Medicine; PCP Internal Medicine; Visit Provider Student in an Organized Health Care Education/Training Program
DX: Z51.81 Encounter for therapeutic drug level monitoring (principal); M06.00 Rheumatoid arthritis without rheumatoid factor, unspecified site; Z11.59 Encounter for screening for other viral diseases; Z11.1 Encounter for screening for respiratory tuberculosis; Z79.620 Long term (current) use of immunosuppressive biologic; Z79.899 Other long term (current) drug therapy
CPT/HCPCS: 36415; 80053; 85025; 85652; 86140; 86481; 86704; 86706; 86709; 86803; 87340; 99212

== ENCOUNTER 2025-04-27 10:19 | Outpatient (AMB) | payer MEDICAID, SELFPAY ==
--- NOTE | 2025-04-27 10:30 | MHC.OFFVIS ---
Vital Signs 04/27/25 10:36 Height 4 ft 11 in Weight 180 lb 5.41 oz BMI 36.4 BP 134/90 H Blood Pressure Location Rt brachial Position Sitting Pulse 81 Pulse Source Pulse Oximeter Pulse Oximetry (%) 99 Oxygen Delivery Method Room Air Intake Visit Reasons: RA Intake Note: Patient presents for RA follow up. 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 This exercises helped. Continues to have back pain. A.m. stiffness lasting 20 minutes - No active synovitis - Held methotrexate in an effort to deescalate immunosuppression Today, - On Enbrel 50mg weekly and Hydroxychloroquine 200mg bid - Did notice worsening of her joint pain after stopping the methotrexate, especially her knees and a little bit in her hands as well Rheumatologic History: Seronegative RA Patient with a history of seronegative rheumatoid arthritis diagnosed in 2009. X-rays of hands done in 2012 with erosions. Methotrexate: Since 2011. 11/2019 present Humira: 04/2020 - 11/2020 active synovitis on exam Enbrel: 11/2020- present Plaquenil- 2018- present Current Rheumatology Medication(s): Enbrel 50mg weekly Hydroxychloroquine 200 mg daily [facility] Medical History (Updated 12/23/24 @ 11:20 by Yashira Lee MD) Screening for osteoporosis PERRY positive Seronegative rheumatoid arthritis Surgical History Hx of tubal ligation Family History Father Diabetes Rheumatoid arthritis CVD (cardiovascular disease) Mother Diabetes Pulmonary embolism Social History Household Members: Other Household Members Other:: daughter Housing: Apartment Alcohol intake: current Patient Tobacco Use Status: Never used Tobacco Current occupational status: disabled 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 Review of Systems Const Details: Review of Systems Constitutional: Denies fever, chills, weight loss ENT: Denies vision changes, eye pain or eye redness, dental caries, dry mouth GI: Denies nausea, vomiting, diarrhea, abdominal pain, change in BM Pulm: Denies SOB, RAMIREZ, hemoptysis, wheezing Cards: Denies chest pain, palpitations Skin: Denies Raynaud's, rash, nail changes, photosensitivity, RADIO PERSONALITY: Denies headaches, weakness, paresthesias, recurrent falls MSK: as per HPI All other systems reviewed and are unremarkable except noted above Physical Exam Exam Exam: Vital signs reviewed Physical Examination CONSTITUITIONAL Patient alert and cooperative. Well appearing and in no apparent painful distress MSK Hands Right Hand: Able to make a fist. No swelling or tenderness to palpation of the MCPs, PIPs or DIPs. Left Hand: Able to make a fist. No swelling or tenderness to palpation of the MCPs, PIPs or DIPs. Wrists Right Wrist: Full ROM to flexion and extension. Mild swelling and TTP Left Wrist: Full ROM to flexion and extension. No swelling but TTP Elbows Right Elbow: Full ROM. No swelling or TTP. No TTP of the medial epicondyle. No TTP of the lateral epicondyle Left Elbow: Full ROM. No swelling or TTP. No TTP of the medial epicondyle. No TTP of the lateral epicondyle Shoulders Right shoulder: Full ROM. No swelling noted. No TTP of the AC joint. No TTP of the subacromial bursa. No TTP of the posterior shoulder Left shoulder: Full ROM. No swelling noted. No TTP of the AC joint. No TTP of the subacromial bursa. No TTP of the posterior shoulder Knees Right knee: Full ROM. No swelling noted. TTP of the knee joint line. No TTP of pes anserine bursa Left knee: Full ROM. No swelling noted. TTP of the knee joint line. No TTP of pes anserine bursa. Ankles Right ankle: Good ankle dorsiflexion and plantar flexion. No swelling. No TTP of the ankle joint Left ankle: Good ankle dorsiflexion and plantar flexion. No swelling. No TTP of the ankle joint Feet Right foot: Negative squeeze test Left foot: Negative squeeze test Tender points? No tenderness to palpation of the bilateral trapezius, supraspinatus, anterior costochondral junctions, bilateral suboccipital muscle insertions SKIN No rashes Vital Signs: Last Vital Signs Pulse 81 04/27/25 10:36 BP 134/90 H 04/27/25 10:36 Pulse Ox 99 04/27/25 10:36 Oxygen Delivery Method Room Air 04/27/25 10:36 BMI result Body Mass Index 36.4 Results Reviewed Results Reviewed: Laboratory Tests 12/14/24 08:53 WBC 8.2 RBC 4.73 Hgb 10.7 L Hct 35.6 L Plt Count 351 ESR 18 Sodium 137 Potassium 4.2 Chloride 107 Carbon Dioxide 24 BUN 10 Creatinine 0.68 AST 28 ALT 35 H C-Reactive Protein 0.30 Infectious serologies 04/01/24 12/14/24 14:43 08:53 Hepatitis A IgM Ab Nonreactive Hep Bs Antigen Negative Hep Bs Antibody NONREACTIVE Hep B Core Total Ab Nonreactive Hepatitis C Ab (EIA) Nonreactive TB Test (T-Spot) Com Negative Assessment & Plan Assessment & Plan (1) Seronegative rheumatoid arthritis: Comment: Methotrexate: Since 2011. 11/2019 present Humira: 04/2020 - 11/2020 active synovitis on exam Enbrel: 11/2020- present Plaquenil- 2019- present Code(s): M06.00 - Rheumatoid arthritis without rheumatoid factor, unspecified site Category: Medical Plan: #Seronegative RA Patient is a 44-year-old female with seronegative rheumatoid arthritis here today for follow up. Patient with low disease activity since stopping the methotrexate Will restart. Plan - Enbrel 50mg SC weekly - Restart methotrexate 10mg weekly and folic acid 1 mg - Continue hydroxychloroquine 200mg daily - Labs today: CBC, CMP, ESR, CRP, Hepatitis panel and T spot - RTC 6 months - Labs before visit: CBC, CMP, ESR, CRP (2) Long-term use of hydroxychloroquine: Comment: eye exam OK 02/2024 Code(s): Z79.899 - Other long-term (current) drug therapy Category: Medical Plan: #Long-term Use of Hydroxychloroquine Discussed with patient the risks and benefits of hydroxychloroquine in managing the rheumatic condition Benefits include: - Reduced pain, reduce mortality, maintenance of remission and reduction of flares Risks include: - GI upset, skin hyperpigmentation, retinal toxicity (especially after more than 5 years of use), myopathy Advised yearly ophthalmology visits Last ophthalmology visit: 07/2024 (3) Encounter for monitoring of etanercept therapy: Code(s): Z51.81 - Encounter for therapeutic drug level monitoring; Z79.620 - watermaster (current) use of immunosuppressive biologic Plan: #Long-term Use of TNF Inhibitors: Etanercept Discussed with the patient the benefits and risks of TNF inhibitors for the management of the rheumatic condition Benefits include reduce pain, maintenance of remission and reduction of flares as well as progression of the disease Risks include injection sites/infusion reactions, serious infections (such as bacterial infections, opportunistic infections), malignancy, delaminating syndromes, autoimmune phenomena, CHF exacerbations, palmar plantar psoriasis and cytopenias Recommended rotating injection sites, and holding medication during and for up to 1 week after resolution of a febrile illness or open skin wound Plan I spent 30 minutes reviewing the record and labs, taking a history, examining the patient, discussing the treatment plan, ordering diagnostic work up and documenting in the medical record Orders: Orders Comprehensive Met. 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 control service representative (current) drug therapy C Reactive Protein 6 Months Z79.899 - Other long-term (current) drug therapy Erythrocyte Sedimentation Rate 6 Months Z79.899 - Other termite control service representative (current) drug therapy Complete Blood Count Auto Diff 6 Months Z79.899 - Other termite control service representative (current) drug therapy Medications: Changed From folic acid Patient must complete labs prior to f/u appt on 12/23/24 1 mg PO QAM 90 tabs 1RF M06.00 - Rheumatoid arthritis without rheumatoid factor, unspecified site To folic acid 1 mg PO QAM 90 tabs 1RF M06.00 - Rheumatoid arthritis without rheumatoid factor, unspecified site Refilled methotrexate sodium 10 mg (4 x 2.5 mg) PO QWEEK 56 tabs 1RF M06.00 - Rheumatoid arthritis without rheumatoid factor, unspecified site etanercept (Enbrel SureClick) 50 mg subcut QWEEK 4 mL 5RF M06.00 - Rheumatoid arthritis without rheumatoid factor, unspecified site hydroxychloroquine 200 mg PO QAM 90 tabs 1RF M06.00 - Rheumatoid arthritis without rheumatoid factor, unspecified site Coding Level of Care Code Est Pt Level 4 (88218) Complex EM visit Add On G2211 Diagnoses Seronegative rheumatoid arthritis M06.00 Long-term use of hydroxychloroquine Z79.899 Encounter for monitoring of etanercept therapy Z51.81; Z79.620
[2025-04-27 10:36] VITALS: BP 134/90; PULSE 81; O2SAT 99; BMI 36.4
--- OUTSIDE RECORDS SUMMARY | 2025-04-27 12:32 | XMS_ITS | Clinical Summary ---
Author Organization [employer] Address [address] [facility] [address] [place] [address] Care Team Providers Care [employer] Supervisor Name Role Phone Ally Rodriguez MD Primary Care Provide r Allergies Active Allergy Reactions Criticality Noted Date Comments Cat Dander 02/05/2021 Dog Epithelium (Canis Lupus Familiaris) 02/05/2021 Medications folic acid (Folvite) 1 MG tabletIndication s:Rheumatoid arthritis, involving unspecified site, unspecified whether rheumatoid factor present (CMS/HCC) Take 1 tablet (1,000 mcg) by mouth in the morning. 30 tablet 3 07/24/20 22 Active cyclobenzaprine (Flexeril) 10 MG tablet Take 1 tablet by mouth every 8 (eight) hours. 04/16/20 22 Active etanercept (Enbrel SureClick) 50 MG/ML injection Inject 1 mL under the skin once a week. Active methotrexate 2.5 MG tablet take 8 tablet by oral route every week 10/29/19 20 Active hydroxychloroqui ne (Plaquenil) 200 MG tabletIndication s:Seropositive rheumatoid arthritis (CMS/HCC) Take 1 tablet (200 mg) by mouth in the morning. 30 tablet 3 09/10/19 23 Active Alcohol Swabs (Alcohol Prep) 70 % padsIndications: Type 2 diabetes mellitus without complication, without long-term current use of insulin (CMS/HCC) USE DIRECTED TWICE DAILY 100 each 03/02/20 24 Active FREESTYLE LITE test stripIndications :Type 2 diabetes mellitus without complication, without long-term current use of insulin (CMS/HCC) TEST BLOOD SUGAR TWICE DAILY 100 strip 5 03/02/20 24 Active lidocaine (Lidoderm) 5 % patchIndications :Chronic bilateral low back pain without sciatica Apply 1 patch topically Once per day. 30 patch 2 04/01/20 24 Active Acetaminophen Extra Strength 500 MG tabletIndication s:Chronic bilateral low back pain without sciatica TAKE 2 TABLETS BY MOUTH EVERY 8 HOURS NEEDED FOR PAIN 40 tablet 05/12/20 24 Active amitriptyline (Elavil) 10 MG tabletIndication s:Chronic low back pain, unspecified back pain laterality, unspecified whether sciatica present TAKE 1 TABLET BY MOUTH AT BEDTIME 30 tablet 5 10/19/19 25 Active lidocaine (Lidoderm) 5 % patchIndications :Chronic bilateral low back pain without sciatica Apply 1 patch topically Once per day. Remove & discard patch within 12 hours or as directed by MD. 30 patch 3 12/03/19 25 Active cyclobenzaprine (Flexeril) 10 MG tabletIndication s:Chronic bilateral low back pain without sciatica Take 0.5 tablets (5 mg) by mouth 3 times daily. 30 tablet 2 12/03/19 25 Active hydrOXYzine HCl (Atarax) 50 MG tabletIndication s:Anxiety TAKE 1 TABLET BY MOUTH TWICE DAILY IN THE MORNING AND IN THE EVENING 60 tablet 2 01/18/20 25 Active budesonide-formo terol (Symbicort) 160-4.5 MCG/ACT inhalerIndicatio ns:Moderate persistent asthma, unspecified whether complicated Inhale 2 puffs in the morning and at bedtime. Rinse mouth with water after use to reduce aftertaste and incidence of candidiasis. Do not swallow. 1 each 02/08/20 25 026 Active albuterol (2.5 MG/3ML) 0.083% nebulizer solutionIndicati ons:Moderate persistent asthma, unspecified whether complicated Take 3 mL by nebulization every 6 (six) hours if needed for wheezing. 75 mL 1 02/08/20 25 Active lisinopril 5 MG tabletIndication s:Essential hypertension Take 1 tablet (5 mg) by mouth Once per day. 30 tablet 11 02/08/20 25 026 Active atorvastatin (Lipitor) 40 MG tablet TAKE 1 TABLET BY MOUTH AT BEDTIME 90 tablet 1 02/17/20 25 Active hydroCHLOROthiaz sophie (HYDRODiuril) 25 MG tabletIndication s:Essential hypertension TAKE 1 TABLET BY MOUTH EVERY MORNING 90 tablet 3 03/18/20 25 Active Ferrous Sulfate (iron) 325 (65 Fe) MG tabletIndication s:Iron deficiency anemia, unspecified iron deficiency anemia type TAKE 1 TABLET BY MOUTH AT BEDTIME 90 tablet 3 03/18/20 25 Active metFORMIN (Glucophage) 500 MG tabletIndication s:Type 2 diabetes mellitus without complication, without long-term current use of insulin (CMS/HCC) TAKE 1 TABLET BY MOUTH TWICE DAILY IN THE MORNING AND IN THE EVENING WITH FOOD 180 tablet 3 03/18/20 25 Active D3 Super Strength 50 MCG (2000 UT) capsuleIndicatio ns:Vitamin D deficiency TAKE 1 CAPSULE BY MOUTH AT BEDTIME 90 capsule 3 03/18/20 25 Active ibuprofen 800 MG tabletIndication s:Chronic bilateral low back pain without sciatica Take 1 tablet (800 mg) by mouth every 8 (eight) hours if needed for moderate pain for up to 20 days. 30 tablet 1 03/23/20 25 025 Active Problems Problem Noted Date Diagnosed Date Encounter for preventive care 03/23/2025 Encounter for Papanicolaou smear of cervix 03/23 Assessment & Plan (03/23/2025 11:15 AM EDT): Pap smear and pelvic exam done today patient will be contacted with results Rheumatoid arthritis of the [facility] sites with negative rheumatoid factor 02/07/2025 Assessment & Plan (02/07/2025 4:12 PM EDT): Continue to follow-up with rheumatology Class 2 severe obesity due t o excess calories with serious comorbidity and body mass index (BMI) of 36.0 to 36.9 in adult 12/02/2024 Assessment & Plan (12/03/2024 3:22 PM EDT): Extensive counseling about healthy diet and exercise on today, 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 Initial [...] consulting health care provider Assessment & Plan (12/03/2024 3:22 PM EDT): [...] aura, not refractory 07/24/2022 Moderate asthma 07/24/2022 Assessment & Plan (02/07/2025 4:14 PM EDT): Patient educated to avoid triggers I prescribed for patient Symbicort to be taken twice daily and also to use this as rescue, because she still having albuterol makes her feel her heart rate going up, but tells me albuterol nebs for some reason do not cause her that and helps her when she has a really bad episodes of asthma exacerbation so I also renew her albuterol solution Mood disorder 07/24/2022 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 Chronic bilateral low back pain without sciatica 07/24/2022 Assessment & Plan (03/23/2025 11:15 AM EDT): Advised to apply heat on affected area I refilled her ibuprofen Assessment & Plan (02/07/2025 4:13 PM EDT): Apply heat on affected area continue with pain meds as needed Assessment & Plan (12/03/2024 3:24 PM EDT): [...] chronic pain I will order an MRI Resolved Problems Problem Noted Date Diagnosed Date Resolved Date Sore throat 07/02/2023 02/07/2025 Assessment & Plan (07/02/2023 10:22 AM EST): Strep at office negtive Conservative measures tylenol PRN, saline gargles Acute upper respiratory infection 07/24/2022 02/07/2025 Acute low back pain 07/24/2022 02/08/20 25 Dry cough 07/24/2022 02/07/2025 Rheumatoid arthritis involvi ng multiple sites with positive rheumatoid factor 07/24/2022 02/08/20 25 Assessment & Plan (02/12/2023 10:58 AM EDT): Continue to follow with rheumatology Seropositive rheumatoid arthritis 07/24/2022 02/07/2025 Encounters Date Type Department Care Team Description 03/29/2025 Results Follow-Up [address] [address] Ally Rodriguez MD Pap Smear, Bacterial Vaginosis, Chlamydia/N. Gonorrhoeae RNA, TMA, Vaginal 03/23/2025 10:45 AM EDT Procedure Visit [address] [address] lAly Rodriguez MD Encounter for Papanicolaou smear of cervix; Chronic bilateral low back pain without sciatica 03/23/2025 Orders Only [address] [address] Ally Rodriguez MD 03/23/2025 Travel 03/22/[address] [address] Ally Rodriguez MD chart prep 03/17/[address] [address] Ally Rodriguez MD Essential hypertension; Iron deficiency anemia, unspecified iron deficiency anemia type; Type 2 diabetes mellitus without complication, without long-term current use of insulin ([facility]); Vitamin D deficiency 02/16/2025 Refill [facility] [address] [place] [address] Ally Rodriguez MD 02/07/2025 2:30 PM EDT Office Visit [facility] [address] [place] [address] Ally Rodriguez MD Moderate persistent asthma, unspecified whether complicated; Rheumatoid arthritis of multiple sites with negative rheumatoid factor (CMS/HCC); Chronic bilateral low back pain without sciatica; Essential hypertension 02/07/2025 Travel 02/04/2025 Telephone [facility] [address] [place] [address] Ally Rodriguez MD chart prep from Last 3 Months Immunizations Immunization Administration Dates Next Due Hep B, adult 01/07/2025,08/06/2024,07/07/2024 Influenza Injectable Quadriv alant Preservative Free IIV4 MDCK 06/26/2018 Influenza injectable quadriv alent preservative free 07/02/2023,06/24/2022,07/24/2021,2018 Influenza, seasonal, injecta ble, preservative free 07/07/2024 Moderna Covid-19 Vaccine 12+ 07/24/2021,12/29/19,11/30/2020 Pfizer Covid-19 Vaccine 12+ 07/07/2024 Pneumococcal Conjugate [...] Passive Smoke Exposure: Never Smokeless Tobacco: Never Tobacco Cessation:Counseling Given: Not Answered Alcohol Use Standard Drinks/Week Comments Never 0 [...] not want or need it 11/16 Comments No Sex and Gender Information Value Date Recorded Sex Assigned at Female 06/17/2022 10:36 AM EDT Legal Sex Female 10:36 AM EDT Gender Identity Female 06/17/2022 10:36 AM EDT Sexual Orientation Choose not to disclose 2021 10:36 AM EDT Last Filed Vital Signs Vital Sign Reading Time Taken Comments Blood Pressure 132/89 03/23/2025 10:35 AM EDT Pulse 86 03/23/2025 10:35 AM EDT Temperature 37 C (98.6 F) 03/23/2025 10:35 AM EDT Respiratory Rate 20 03/23/2025 10:35 AM EDT Oxygen Saturation 99% 02/07/2025 2:38 PM EDT Inhaled Oxygen Concentration - - Weight 81.7 kg (180 lb 3.2 oz) 03/23/2025 10:35 AM EDT Height 149.9 cm (4' 11 ) 03/23/2025 10:35 AM EDT Body Mass Index 36.4 03/23/2025 10:35 AM EDT Plan of Treatment Upcoming Encounters Date Type Department Care Team (Late st Contact Info) Description 05/13/2025 9:00 AM EDT Office Visit [facility] [address] [place] [address] Brittny Lomas, OD [address] [place] [address] Health Maintenance Due Date Last Done Comments CT Colonography 1980 Colonoscopy 1978 Colorectal Cancer Screening 1980 FIT DNA/Cologuard 1980 FIT 1980 FOBT 1980 Sigmoidoscopy 1978 Diabetes: Foot Exam 1988 Family Planning (PISQ) 1993 Pneumococcal Vaccine: Pediatrics (0 to 5 Years) and At-Risk Patients (6 to 49) Years (2 of 2 - PPSV23) 06/27/2020 05/02/2020 Dental Oral Exam 09/07/2021 03/06/2021 Dental Prophylaxis 09/16/2021 03/15/2021 Dental X-Ray: Bitewings 03/07/2022 03/06/2021, 02/16 Mammogram 02/25/2024 02/24/2023, 02/24/2023 Diabetes: Urine Protein Screening 07/02/2024 07/02/2023, 03/25/2022, 06/08/2021 Lipid Panel 04/01/2025 04/01/2024, 06/18, 06/26/2022, Additional history exists Influenza Vaccine (#1) 2025 , 07/02/2023, 06/24/2022, Additional history exists Depression Monitoring 06/03/2025 12/02/2024, 025 Diabetes: Hemoglobin A1C 06/03/2025 025, 04/01/2024, 09/22/2023, Additional history exists Alcohol/Substance Use Screening 12/02/2025 12/02/2024 SDOH Screening 12/02/2025 12/02/2024 Eye Exam 12/09/2025 12/10/2023, 11/17, 12/10/2023, Additional history exists Disability Screening 02/07/2026 02/07/2025 Tobacco Screening 03/23/2026 03/23/2025 Dental X-Ray: Full Mouth 11/04/2026 11/04/2023, 02/16 DTaP/Tdap/Td Vaccines (2 - Td or Tdap) 06/26/2028 06/26/2018 Zoster Vaccines (1 of 2) 2028 Cervical Cancer Screening 03/23/2030 HPV/Cotest 03/23/2030 03/23/2025 Pap Smear 03/23/2030 03/23/2025 RSV Patients and Patients Aged 60 years or older (1 - 1-dose 75+ series) 2053 HIV Screening Completed 04/01/2024 Hepatitis C Screening Completed 04/01/2024, 023 COVID-19 Vaccine Completed 07/07/2024, , 07/24/2021, Additional history exists Hepatitis B Vaccines Completed 01/07/2025, 08/06/2024, 07/07/2024 HIB Vaccines Aged Out No longer eligi [...] patient's age to complete this topic Meningococcal B Vaccine Aged Out No l onger eligible based on patient's age to complete [...] Procedure Name Priority Date/Time Associated Diagnosis Comments PAP SMEAR Routine 03/23/2025 11:14 AM EDT Encounter for Papanicolaou smear of cervix HPV DNA, LOW/HIGH RISK Routine 03/23/2025 11:14 AM EDT CHLAMYDIA/N. GONORRHOEAE RNA, TMA, UROGENITAL Routine 03/23/2025 11:14 AM EDT Encounter for Papanicolaou smear of cervix BACTERIAL VAGINOSIS PANEL Routine 03/23/2025 11:14 AM EDT Encounter for Papanicolaou smear of cervix POCT GLYCATED HEMOGLOBIN, TOTAL Routine 12/02/2024 3:10 [...] Recently Relevant to Health Maintenance Results * Bacterial Vaginosis (03/23/2025 11:14 AM EDT) TRICHOMONAS VAGINALIS DETECTION BY PCR NOT DETECTED Not Detect [facility] BACTERIAL VAGINOSIS DETECTION BY PCR NEGATIVE Negative [facility] Comment:The BV organism targ ets of the Xpert Xpress MVP test can becommensal in women; Xpert Xpress MVP positive results forbacterial vaginosis should be considered in conjunction withother clinical and patient information to determine thedisease status. Organisms that are not detected by the XpertXpress MVP test have also been reported to be associatedwith BV and aerobic vaginitis.The Xpert Xpress MVP test performance has not been evaluatedin patients under the age of 14. SENA GROUP DETECTION BY PCR NOT DETECTED Not Detect [facility] Sena glab krusei PCR NOT DETECTED Not Detect [facility] Swab Vaginal structure / Unknown 03/23/2025 11:14 AM EDT 03/23/2025 6:11 PM EDT Ally Lema MD LAB MICROBIOLOGY - GE NERAL ORDERABLES Final Result Performing Organization Address [facility]/ZIP Co de Phone Number [facility] [address] [place] [phone] * HPV DNA, Low/High Risk (03/23/2025 11:14 AM EDT) HPV High Risk Negative Negative [facility] HPV Genotype 16 Negative Negative [facility] HPV Genotype 18 Negative Negative [facility] Comment:HPV testing performe d at [facility] (CLIA#[id number]), [address] [place] [address].Testing for HPV was performed using the Michael GIANCARLO 6800system. The presence of HPV in the female genital tract isassociated with a number of diseases, including cervicalcarcinoma. The HPV DNA high risk pool tests for HPV 31, 33,35, 39, 45, 51, 52, 56, 58, 59, 66 and 68. The testing forHPV 16 and 18 genotypes has also been performed. A positiveresult indicates detection of nucleic acid sequences fromone or more subtypes, whereas a negative result indicatessuch sequences were not detected. 03/23/2025 11:1 4 AM EDT 03/25/2025 9:46 AM EDT us Ally Lema MD LAB BLOOD ORDERABLES Final Result Performing Organization Address [facility]/ZIP Co de Phone Number [facility] [address] [place] [phone] * Chlamydia/N. Gonorrhoeae RNA, TMA, Vaginal (03/23/2025 11:14 AM EDT) CT PCR NOT DETECTED Not Detect. [facility] Comment:A not detected test result does not exclude the possibilityof infection because test results can be affected byimproper specimen collection, concurrent antibiotic therapy,or the number of organisms in the specimen which may bebelow the sensitivity of the test. As with many diagnostictests, results from the Xpert CT/NG assay should beinterpreted in conjunction with other laboratory andclinical data available to the clinician.Xpert CT/NG performance has not been evaluated in patientsless than 14 years of age. The assay should not be used forthe evaluationof suspected sexual abuse or for other medico-legalindications. Additional testing is recommended in anycircumstance when false positive or false negative resultscould lead to adverse medical, social or psychologicalconsequences. NG PCR NOT DETECTED Not Detect. [facility] Comment:A not detected test result does not exclude the possibilityof infection because test results can be affected byimproper specimen collection, concurrent antibiotic therapy,or the number of organisms in the specimen which may bebelow the sensitivity of the test. As with many diagnostictests, results from the Xpert CT/NG assay should beinterpreted in conjunction with other laboratory andclinical data available to the clinician.Xpert CT/NG performance has not been evaluated in patientsless than 14 years of age. The assay should not be used forthe evaluationof suspected sexual abuse or for other medico-legalindications. Additional testing is recommended in anycircumstance when false positive or false negative resultscould lead to adverse medical, social or psychologicalconsequences. Swab Vaginal structure / Unknown 03/23/2025 11:14 AM EDT 03/23/2025 6:11 PM EDT us Ally Lema MD LAB MICROBIOLOGY - NERPR ORDERABLES Final Result [facility] [address] [place] [phone] * Pap Smear (03/23/2025 11:14 AM EDT) Swab 03/23/2025 11:1 4 AM EDT 03/24/2025 7:45 AM EDT [facility] - 03/28/2025 12:11 PM EDT ----- ------- Name: Tania Mack Age/Sex: 44/F : 1980 Unit#: [id number] Attend Dr: Ally Rodriguez MD Re03/23/25 Status: [facility] Location: HO.HHCLNP Disch: ----- ------- SPEC : [id number] RECD: 03/24/2545 STATUS: RUBIN PRATHER NUM: [id number] PIPO: 03/23/25 [facility] DR: Ally Rodriguez MD ENTERED: 03/24/250758 SP TYPE: Pap Smr [facility] DR: ORDERED: Pap Smear Interpretation Satisfactory for evaluation. Negative for intraepithelial lesion or malignancy. Mild inflammation. HPV High Risk: Negative HPV Genotyping 16: Negative HPV Genotyping 18: Negative Clinical Information LMP: Unknown date Previous PAP test: Unknown date, WNL Other history: Encounter for Papanicolaou smear of cervix Material Received ThinPrep-Cervical PAP Disclaimer As of June 09, 2024, the technical services to include automated prescreening performed by the ThinPrep Imaging System, PAP screening and HPV testing will be performed at [facility] (CLIA #[id number]), [address] [place] [phone]. Testing for HPV was performed using the Michael GIANCARLO 6800 system. The presence of HPV in the female genital tract is associated with a number of diseases, including cervical carcinoma. The HPV DNA high risk pool tests for HPV 31, 33, 35, 39, 45, 51, 52, 56, 58, 59, 66 and 68. The testing for HPV 16 and 18 genotypes has also been performed. A positive result indicates detection of nucleic acid sequences from one or more subtypes, whereas a negative result indicates such sequences were not detected. All professional services are performed by [facility] ([address] [place] [address], [place] [address]; ; CLIA #[id number]). The PAP Test is a screening procedure with the inherent possibility of both false negative and false positive results. Results should be interpreted in the context of historic and current clinical findings. Reliability of the PAP Test is enhanced by performing the test on a regular repetitive basis. CONTINUED ON NEXT PAGE ----- ------- Name: Tania Mack Age/Sex: 44/F : 1980 Unit#: [id number] Attend Dr: Ally Rodriguez MD Re03/23/25 Status: DEP [facility] Disch: ----- ------- SPEC : [id number] RECD: 03/24/25 STATUS: RUBIN PRATHER NUM: [id number] PIPO: 03/23/25 [facility] DR: Ally Rodriguez MD ENTERED: 03/24/25 SP TYPE: Pap Smr [facility] DR: ORDERED: Pap Smear ----- ------- Signed (signature on file) LEONIDES Sharma (ASCP) 03/28/25 1211 ----- ------- END OF REPORT us Ally Lema MD LAB CYTOLOGY ORDERABL ES Final Result [facility] [address] [place] [phone] * POCT HGB A1C (12/02/2024 3:10 PM EDT) Hemoglobin A1C 5.9 4.0 - 6.0 % QC Media Lot # [id number] Lot# Expiration Date Blood 12/02/2024 3:10 PM EDT us Ally Lema [...] to 5OO mg/dL Cholesterol 163 <200 mg/dL [facility] Comment:Desirable Cholestero l: less than 200 mg/dLBorderline High Cholesterol: 200-239 mg/dLHigh Cholesterol: greater than 239 mg/dL LDL Cholesterol Calculated 90 <100 mg/dL [facility] Comment:Desirable LDL: less than 100 mg/dLNear Optimal/Above Optimal LDL: 110- 129 mg/dLBorderline High LDL: 130-159 mg/dLHigh LDL: 160-189 mg/dLVery High LDL: greater than or equal to 190 mg/dL HDL Cholesterol 39(L) >40 mg/dL [facility] Comment:Desirable HDL: great er than 40 mg/dL Note: This HDL assay may give artificially low results in patients with liver disease. Blood 04/01/2024 2:43 PM EDT 04/01/2024 4:00 PM EDT us Ally Lema MD LAB BLOOD ORDERABLES Final Result [facility] [place] [phone] * Hepatitis Panel, General (04/01/2024 2:43 PM EDT) Hepatitis A IgM Nonreactive Nonreactive [facility] Comment:IgM antibodies to ASHBY V not detected; does not exclude earlyacute or recovered HAV infection. ~Hepatitis B Surface Antibody NONREACTIVE Nonreactive [facility] Comment:Nonreactive: < 8.00 mIU/mL Hepatitis B Core Antibody Nonreactive Nonreactive [facility] Hepatitis C Antibody Nonreactive Nonreactive [facility] Comment:Antibodies to HCV no t detected; does not exclude early acuteHCV infection. Hepatitis B Surface Ag Negative Negative [facility] Blood 04/01/2024 2:43 PM EDT 04/01/2024 3:54 PM EDT us Ally Lema MD LAB BLOOD ORDERABLES Final Result Performing Organization Address City/[facility]/ZIP Co de Phone Number [facility] [address] [place] [phone] * HIV-1/2 Antigen and Antibodies, Fourth Generation, with Reflexes (04/01/2024 2:43 PM EDT) HIV AB/AG Nonreactive Nonreactive [facility] Comment:HIV-1 p24 Ag and/or HIV-1/HIV-2 Ab not detected.A test result that is nonreactive does not exclude thepossibility of exposure to or infection with HIV-1 and/orHIV-2. Nonreactive results in this assay for individualswith prior exposure to HIV-1 and/or HIV-2 may be due toantigen and antibody levels that are below the limit ofdetection of this assay.The BUX HIV Ag/Ab Combo assay result andsupplemental assay results should be interpreted inconjunction with the patient's clinical presentation,history and other laboratory results. If the results areinconsistent with clinical evidence, additional testing issuggested to confirm the result. Blood Venous blood specimen / Unknown 04/01/2024 2:43 PM EDT 04/01/2024 3:54 PM EDT us Ally Lema MD LAB BLOOD ORDERABLES Final Result Performing Organization Address City/[facility]/ZIP Co de Phone Number [facility] [address] [place] [phone] [phone] * Albumin, Random Urine W/Creatinine (07/02/2023 10:38 AM EST) Creatinine, Urine 69.16 mg/dL [facility] Microalbumin Urine <5.0 mg/L [facility] Microalbum Creatinine Ratio Ur TNP <30 ug/mg cr [facility] Comment:Unable to calculate albumin/creatinine ratio due to lowmicroalbumin or creatinine result. 07/02/2023 10:3 8 AM EST 07/02/2023 11:04 AM EST us Ally Lema MD LAB URINE ORDERABLES Final Result [facility] [address] [place] [phone] * BI Mammogram Screening Tomosynthesis Bilateral (02/24/2023 9:40 AM EDT) Anatomical Region Laterality Modality Breast Bilateral Mammography 02/24/2023 9:40 AM EDT Narrative 03/15/2023 2:12 PM EDT [address] [place] [address] Mammography Report Signed Patient: Tania Mack MR#: [id number] : 1980 Acct:[id number] Age/Sex: 42 / F ADM Date: 02/24/23 Loc: HO.MAMMO Attending Dr: Ally Lema MD Ordering Physician: Ally Rodriguez MD Results: Date of Service: 02/24/23 Follow Up: Procedure(s): MM tomosynthesis screening BI Accession Number(s): [id number] cc: Ally Rodriguez MD EXAMINATION: MM SCREENING [...] in OV> 03/15/23 1409 DD/ 0940 TD/TT: Director Of Digital Marketing: Procedure Note Donotuseinterpreter, Image - 03/15/2023 [facility] [address] [place] [address] Mammography Report Signed Patient: Celia Mack#: [id number] : 1980Acct:[id number] Age/Sex: 42 / FADM Date: 02/24/23 Loc: HO.MAMMO Attending Dr: Ally Lema MD Ordering Physician: Ally Rodriguez MDResults: Date of Service: 02/24/23Follow Up: Procedure(s): MM tomosynthesis screening BI Accession Number(s): [id number] cc: Ally Rodriguez MD EXAMINATION: MM SCREENING [...] in OV> 03/15/23 1409 DD/ 0940 TD/TT: Director Of Digital Marketing: Ally Lema MD IMG BI PROCEDURES Pablito pebbles Result - Final from Last 3 Months or Most Recently Relevant to Health Maintenance [facility] Care Teams 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
--- OUTSIDE RECORDS SUMMARY | 2025-04-27 12:32 | XMS_ITS | Encounter Summary ---
Author Organization [employer] Address [address] [facility] 7t [place] [address] Care Team Providers Care Rating Clerk Name Role Phone Ally Rodriguez MD Primary Care Provide r Reason for Visit * Reason Comments Med Refill Encounter Details Date Type Department Care Team (Late st Contact Info) Description 11/10/2023 Refill [facility] ADULT DENTAL [address] [place], [place] [phone] Aravind Simpson DDS [address] [place], [place] [phone] Social History Tobacco Use Types Packs/Day Years [...] Description 05/13/2025 9:00 AM EDT Office Visit [facility] OPTOMETRY [address] [place] [address] Abebe, Brittny, OD [address] [place] [address] documented as of this encounter Visit Diagnoses Not on filedocumented in this encounter Additional Health Concerns Assessment Noted Time PHQ-9 Depression Total Score: 15 023 10:50 AM EDT documented as of this encounter Care Teams Rating Clerk Relationship Specialty Start Date End Date Ally Rodriguez MD [address] [place] [address] PCP - General Family Medicine 07/02/19 documented as of this encounter
--- OUTSIDE RECORDS SUMMARY | 2025-04-27 12:32 | XMS_ITS | Encounter Summary ---
Author Organization [employer] Address [address] [facility] 7t [place] [address] Care Team Providers Care Manager Of Radiology Name Role Phone Ally Rodriguez MD Primary Care Provide r Reason for Visit * Reason Comments Med Refill Encounter Details Date Type Department Care Team (Late Contact Info) Description 03/18/2023 Refill [facility] CHC MED & PEDS [address] [place], [place] [phone] Disha Fabian MD [address] [place] [address] Anxiety Social History Tobacco Use Types Packs/Day [...] Department Care Team (Late Contact Info) Description 05/13/2025 9:00 AM EDT Office Visit [facility] OPTOMETRY [address] [place], [place] [phone] Abebe, Brittny, OD [address] [place], [place] [phone] documented as of this encounter Visit Diagnoses Diagnosis Anxiety Anxiety state, unspecified documented in this encounter Additional Health Concerns Assessment Noted Time PHQ-9 Depression Total Score: 15 023 10:50 AM EDT documented as of this encounter Care Teams Manager Of Radiology Relationship Specialty Start Date End Date Ally Rodriguez MD [address] [place] [address] PCP - General Family Medicine 07/02/19 documented as of this encounter
--- OUTSIDE RECORDS SUMMARY | 2025-04-27 12:32 | XMS_ITS | Encounter Summary ---
Author Organization [employer] Address [address] [facility] 7t [place] [address] Care Team Providers Care Qa Auditor Name Role Phone Ally Rodriguez MD Primary Care Provide r Reason for Visit * Reason Comments Med Refill Encounter Details Date Type Department Care Team (Late st Contact Info) Description 07/15/2023 Refill [facility] MEDICINE [address] [place], [place] [phone] Whitney Robins MD [address] [place], [place] [phone] Chronic low back pain, unspecified back pain [...] Description 05/13/2025 9:00 AM EDT Office Visit [facility] OPTOMETRY [address] [place] [address] Brittny Lomas, OD [address] [place] [address] documented as of this encounter Visit Diagnoses Diagnosis Chronic low back pain, unspecified back pain laterality, unspecified whether sciatica present documented in this encounter Additional Health Concerns Assessment Noted Time PHQ-9 Depression Total Score: 15 023 10:50 AM EDT documented as of this encounter Care Teams Qa Auditor Relationship Specialty Start Date End Date Ally Rodriguez MD [address] [place] [address] PCP - General Family Medicine 07/02/19 documented as of this encounter
--- OUTSIDE RECORDS SUMMARY | 2025-04-27 12:32 | XMS_ITS | Encounter Summary ---
Author Organization [employer] Address [address] [facility] 7t [place] [address] Care Team Providers Care Core Rescuer Name Role Phone Ally Rodriguez MD Primary Care Provide r Reason for Visit * Reason Comments Med Refill Encounter Details Date Type Department Care Team (Late Contact Info) Description 01/16/2023 Refill [facility] MEDICINE [address] [place], [place] [phone] Ally Rodriguez MD [address] [place], [place] [phone] Moderate persistent asthma without complication Social History [...] Upcoming Encounters Date Type Department Care Team ([facility] Contact Info) Description 05/13/2025 9:00 AM EDT Office Visit [facility] OPTOMETRY [address] [place], [place] [phone] rBittny Lomas, OD [address] [place], [place] [phone] documented as of this encounter Visit Diagnoses Diagnosis Moderate persistent asthma without complication documented in this encounter Additional Health Concerns Assessment Noted Time PHQ-9 Depression Total Score: 15 01/14/ 023 10:50 AM EDT documented as of this encounter Care Teams Core Rescuer Relationship Specialty Start Date End Date Ally Rodriguez MD [address] [place] [address] PCP - General Family Medicine 07/02/19 documented as of this encounter
--- OUTSIDE RECORDS SUMMARY | 2025-04-27 12:32 | XMS_ITS | Encounter Summary ---
Author Organization [email or web address] Address [address] [facility] 7t [place] [address] Care Team Providers Care Dry Cleaning Checker Name Role Phone Ally Rodriguez MD Primary Care Provide r Encounter Details Date Type Department Care Team (Late Contact Info) Description 02/25/2023 Orders Only [facility] CHC MED & PEDS [address] [place] [address] Siri Grant LPN Social History Tobacco Use [...] Description 05/13/2025 9:00 AM EDT Office Visit [facility] OPTOMETRY [address] [place] [place], [place] [phone] Brittny Lomas, OD [address] [place] [address] documented as of this encounter Visit Diagnoses Not on filedocumented in this encounter Additional Health Concerns Assessment Noted Time PHQ-9 Depression Total Score: 15 023 10:50 AM EDT documented as of this encounter Care Teams Dry Cleaning Checker Relationship Specialty Start Date End Date Ally Rodriguez MD [address] [place] [address] PCP - General Family Medicine 07/02/19 documented as of this encounter
--- OUTSIDE RECORDS SUMMARY | 2025-04-27 12:32 | XMS_ITS | Encounter Summary ---
Author Organization [employer] Address [address] [facility] 7t [place] [address] Care Team Providers Care 3Rd Grade Reading Teacher Name Role Phone Ally Rodriguez MD Primary Care Provide r Reason for Visit * Reason Comments Med Refill Encounter Details Date Type Department Care Team (Late st Contact Info) Description 06/17/2023 Refill [facility] MEDICINE [address] [place], [place] [phone] Ally Rodriguez MD [address] [place], [place] [phone] Anxiety Social History Tobacco Use Types Packs/Day [...] 9:00 AM EDT Office Visit [facility] OPTOMETRY [address] [place] [address] Brittny Lomas, OD [address] [place] [address] documented as of this encounter Visit Diagnoses Diagnosis Anxiety Anxiety state, unspecified documented in this encounter Additional Health Concerns Assessment Noted Time PHQ-9 Depression Total Score: 15 023 10:50 AM EDT documented as of this encounter Care Teams 3Rd Grade Reading Teacher Relationship Specialty Start Date End Date Ally Rodriguez MD [address] [place] [address] PCP - General Family Medicine 07/02/19 documented as of this encounter
--- OUTSIDE RECORDS SUMMARY | 2025-04-27 12:32 | XMS_ITS | Encounter Summary ---
Author Organization [employer] Address [address] [facility] 7t [place] [address] Care Team Providers Care Dinkey Skinner Name Role Phone Ally Rodriguez MD Primary Care Provide r Encounter Details Date Type Department Care Team (Latest Contact Info) Description 03/06/[address] [facility] CONVERSIONS Dental, Provider, DDS Social [...] Description 05/13/2025 9:00 AM EDT Office Visit [facility] OPTOMETRY [address] [place] [address] Abebe, Brittny, OD [address] [place] [address] documented as of this encounter Visit Diagnoses Not on filedocumented in this encounter Care Teams Dinkey Skinner Relationship Specialty Start Date End Date Ally Rodriguez MD [address] [place] [address] PCP - General Family Medicine 07/02/19 documented as of this encounter
--- OUTSIDE RECORDS SUMMARY | 2025-04-27 12:32 | XMS_ITS | Encounter Summary ---
Author Organization [email or web address] Address [address] [facility] 7t [place] [address] Care Team Providers Care Tungsten Refiner Name Role Phone Ally Rodriguez MD Primary Care Provide r Reason for Visit * Reason Comments Med Refill Encounter Details Date Type Department Care Team (Late st Contact Info) Description 12/05/2022 Refill [facility] MEDICINE [address] [place], [place] [phone] Yonatan Ross MD [address] [place] [address] Type 2 diabetes mellitus without complication, without long-term current use of insulin (CMS/HCC); Essential hypertension Social History Tobacco Use Types [...] Description 05/13/2025 9:00 AM EDT Office Visit [facility] OPTOMETRY [address] [place], [place] [phone] Brittny Lomas, OD [address] [place] [address] documented as of this encounter Visit Diagnoses Diagnosis Type 2 diabetes mellitus without complication, without long-term current use of insulin (CMS/HCC) Essential hypertension Unspecified essential hypertension documented in this encounter Care Teams Tungsten Refiner Relationship Specialty Start Date End Date Ally Rodriguez MD [address] [place] [id number] PCP - General Family Medicine 07/02/19 documented as of this encounter
--- OUTSIDE RECORDS SUMMARY | 2025-04-27 12:32 | XMS_ITS | Encounter Summary ---
Author Organization [employer] Address [address] [facility] 7t [place] [address] Care Team Providers Care Human Services Instructor Name Role Phone Ally Rodriguez MD Primary Care Provide r Reason for Visit * Reason Comments Med Refill Encounter Details Date Type Department Care Team (Late Contact Info) Description 01/16/2023 Refill [facility] MEDICINE [address] [place], [place] [phone] Name, MD Darshan [address] [place] [address] Chronic low back pain, unspecified back pain [...] [facility] OPTOMETRY [address] [place], [place] [phone] Brittny Lomas, OD [address] [place] [address] documented as of this encounter Visit Diagnoses Diagnosis Chronic low back pain, unspecified back pain laterality, unspecified whether sciatica present documented in this encounter Additional Health Concerns Assessment Noted Time PHQ-9 Depression Total Score: 15 023 10:50 AM EDT documented as of this encounter Care Teams Human Services Instructor Relationship Specialty Start Date End Date Ally Rodriguez MD [address] [place] [address] PCP - General Family Medicine 07/02/19 documented as of this encounter
== END 2025-04-27 11:05 | disposition home or self-care (01) ==
LOC: HO.RHES 10:19
PROVIDERS: Family Provider Internal Medicine; PCP Internal Medicine; Visit Provider Student in an Organized Health Care Education/Training Program
DX: M06.00 Rheumatoid arthritis without rheumatoid factor, unspecified site (principal); Z79.899 Other long term (current) drug therapy; Z51.81 Encounter for therapeutic drug level monitoring; Z79.620 Long term (current) use of immunosuppressive biologic
CPT/HCPCS: 99214

== ENCOUNTER 2025-06-23 10:02 | Outpatient (REF) | payer MEDICAID, SELFPAY ==
--- OUTSIDE RECORDS SUMMARY | 2025-06-22 10:00 | XMS_ITS | Encounter Summary ---
Author Organization [employer] Address [address] [facility] [address] [place] [address] Care Team Providers Care Managing Broker Name Role Phone Ally Rodriguez MD Primary Care Provide r Encounter Details Date Type Department Care Team ([facility] st Contact Info) Description 06/22/2025 10:00 AM EST Telemedicine [facility] MEDICINE [address] [place], [place] [phone] Ally Rodriguez MD [address] [place], [place] [phone] Dietary counseling; Exercise counseling; UTI symptoms; Type 2 diabetes mellitus without complication, without long-term current use of insulin (HCC); Anxiety Social History Tobacco Use Types Packs/Day Years Used Date Smoking Tobacco: Never Passive Smoke Exposure: Never Smokeless Tobacco: Never Alcohol Use Standard Drinks/Week Comments Never 0 (1 standard drink = 0.6 oz pur e alcohol) Depression Answer Date Recorded Patient Health Questionnaire-9 Score 0 06/22/2025 Patient Health Questionnaire-9 Score 0 06/22/2025 Last PHQ-9: Questionnaire Data Not on file 1 08/22/2024 Housing Stability Answer Date Recorded What is [...] Answer Date Recorded Patient Health Questionnaire-2 Score 0 06/22/2025 Internet Access Answer Date Recorded Internet Access [...] AM EDT documented as of this encounter Functional Status * Over the past 2 weeks, how often have you been bothered by any of the following problems? Question Answer Date of Assessment Author Patient Health Questionnaire-2 Score 0 12/2024 10:02 AM Jade Stevens [place] * Little interest or pleasure in doing things Answer Date of Assessment Author Not at all 06/22/2025 10:02 AM Nimesh Stevens [place] * Feeling down, depressed, or hopeless Answer Date of Assessment Author Not at all 06/22/2025 10:02 AM Nimesh Stevens [place] * Trouble falling or staying asleep, or sleeping too much Answer Date of Assessment Author Not at all 06/22/2025 10:02 AM Nimesh Stevens [place] * Feeling tired or having little energy Answer Date of Assessment Author Not at all 06/22/2025 10:02 AM Nimesh Stevens MA * Poor appetite or overeating Answer Date of Assessment Author Not at all 06/22/2025 10:02 AM Nimesh Stevens [place] * Feeling bad about yourself - or that you are a failure or have let yourself or your family down Answer Date of Assessment Author Not at all 06/22/2025 10:02 AM Nimesh Stevens [place] * Trouble concentrating on things, such as reading the newspaper or watching television Answer Date of Assessment Author Not at all 06/22/2025 10:02 AM Nimesh Stevens [place] * Moving or speaking so slowly that other people could have noticed? Or the opposite - being so fidgety or restless that you have been moving around a lot more than usual. Answer Date of Assessment Author Not at all 06/22/2025 10:02 AM Nimesh Stevens MA * Thoughts that you would be better off or hurting yourself in some way Answer Date of Assessment Author Not at all 06/22/2025 10:02 AM Nimesh Stevens MA * Patient Health Questionnaire-9 Score Answer Date of Assessment Author 0 06/22/2025 10:02 AM Nimesh Stevens MA * Over the last 2 weeks, how often have you been bothered by any of the following problems? Question Answer Date of Assessment Author Feeling nervous, anxious, or on edge 0 12/2024 10:02 AM Jade Stveens [place] Not being able to stop or co ntrol worrying 0 06/22/2025 10:02 AM Jade Stevens MA Worrying too much about diff erent things 0 06/22/2025 10:02 AM Jade Stevens [place] Trouble relaxing 0 06/22/2025 10:02 AM Jade Stevens MA Being so restless that it is hard to sit still 0 06/22/2025 10:02 AM Jade Stevens MA Becoming easily annoyed or irritable 0 12/2024 10:02 AM Jade Stevens MA Feeling afraid as if somethi ng awful might happen 0 06/22/2025 10:02 AM Jade Stevens MA RAFAEL-7 Total Score 0 06/22/2025 10:02 AM Jade Stevens MA documented as of this encounter Progress Notes * Ally Lema MD - 06/22/2025 10:00 AM EST SUBJECTIVE: Tania Mack is a 44 y.o. year old female who presents for Chronic Disease Management . Acute Concerns: Incontinence and bladder/pelvic pain for 2 weeks, urinary frequency and urgency denies urine mal odor Patient reports she has being noticing her glucose is starting to go up Patient today also reports she has been feeling more anxious lately, last time this happened I prescribed for her hydroxyzine and she is requesting some refills because she tells me that it really helped her last time Social History Social History Narrative Not on file Problem List[1] Anxiety Dyspnea on exertion Essential hypertension Irregular periods Migraine without aura, not refractory Moderate asthma Mood disorder ([facility]) 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[facility]) Chronic bilateral low back pain without sciatica Fibromyalgia Type 2 diabetes mellitus without complication, without long-term current use of insulin ([facility]) Type 2 diabetes mellitus without complication Encounter for screening mammogram for malignant neoplasm of breast Health care maintenance Left hand pain Rash and nonspecific skin eruption Other constipation Symptomatic irreversible pulpitis Dental caries into pulp Other fatigue Class 2 severe obesity due to excess calories with serious comorbidity and body mass index (BMI) of36.0 to 36.9 in adult Rheumatoid arthritis of multiple sites with negative rheumatoid factor ([facility] ([facility]) Encounter for preventive care Encounter for Papanicolaou smear of cervix UTI symptoms Family History[2] Review of Systems Constitutional: Negative. HENT: Negative. Respiratory: Negative. Cardiovascular: Negative. Gastrointestinal: Positive for abdominal pain. Negative for abdominal distention, anal bleeding, blood in stool, constipation, diarrhea, nausea, rectal pain and vomiting. Genitourinary: Positive for decreased urine volume, enuresis, flank pain, frequency, menstrual problem, pelvic pain and urgency. Negative for difficulty urinating, dyspareunia, dysuria and hematuria. Psychiatric/Behavioral: The patient is nervous/anxious. Follow Up: No follow-ups on file. Medications Ordered Prior to Encounter[3] Problem List Items Addressed This Visit UTI symptoms Advised to drink plenty of water and do not hold the urine I ordered a UA and culture I advised to give the sample before starting the antibiotic that I prescribed for her Macrobid 100 mg twice a day for 1 week Relevant Medications nitrofurantoin, macrocrystal-monohydrate, (Macrobid) 100 MG capsule Other Relevant Orders Urinalysis with reflex microscopic Culture, Urine, Routine Type 2 diabetes mellitus without complication, without long-term current use of insulin ([facility]) I counseled patient regarding diabetic diet, I advised to continue with metformin and today I addedMounjaro 2.5 mg weekly, I advised to log her glucose and bring the log for next appointment Relevant Medications Tirzepatide (Mounjaro) 2.5 MG/0.5ML solution auto-injector Anxiety Counseling done today, I prescribed for her again hydroxyzine 50 mg every 8 hours if needed Relevant Medications hydrOXYzine pamoate (Vistaril) 50 MG capsule Other Visit Diagnoses Dietary counseling Relevant Medications Tirzepatide (Mounjaro) 2.5 MG/0.5ML solution auto-injector Exercise counseling Relevant Medications Tirzepatide (Mounjaro) 2.5 MG/0.5ML solution auto-injector [1] Patient Active Problem List Diagnosis Anxiety Dyspnea on exertion Essential hypertension Irregular periods Migraine without aura, not refractory Moderate asthma Mood disorder ([facility]) 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[facility]) Chronic bilateral low back pain without sciatica Fibromyalgia Type 2 diabetes mellitus without complication, without long-term current use of insulin ([facility]) Type 2 diabetes mellitus without complication Encounter for screening mammogram for malignant neoplasm of breast Health care maintenance Left hand pain Rash and nonspecific skin eruption Other constipation Symptomatic irreversible pulpitis Dental caries into pulp Other fatigue Class 2 severe obesity due to excess calories with serious comorbidity and body mass index (BMI) of36.0 to 36.9 in adult Rheumatoid arthritis of multiple sites with negative rheumatoid factor ([facility] ([facility]) Encounter for preventive care Encounter for Papanicolaou smear of cervix UTI symptoms [2] Family History Problem Relation Name Age of Onset Arthritis Mother Hypertension Mother Diabetes Mother Coronary artery disease Father Hypertension Father Diabetes Father Breast cancer Paternal Grandmother Glaucoma Neg Hx [3] Current Outpatient Medications on File Prior to Visit Medication Sig Dispense Refill Acetaminophen Extra Strength 500 MG tablet TAKE 2 TABLETS BY MOUTH EVERY 8 HOURS NEEDED FOR PAIN40 tablet 0 albuterol (2.5 MG/3ML) 0.083% nebulizer solution Take 3 mL by nebulization every 6 (six) hours if needed for wheezing. 75 mL 1 Alcohol Swabs (Alcohol Prep) 70 % pads USE DIRECTED TWICE DAILY 100 each 5 amitriptyline (Elavil) 10 MG tablet TAKE 1 TABLET BY MOUTH AT BEDTIME 30 tablet 5 atorvastatin (Lipitor) 40 MG tablet TAKE 1 TABLET BY MOUTH AT BEDTIME 90 tablet 1 budesonide-formoterol (Symbicort) 160-4.5 MCG/ACT inhaler Inhale 2 puffs in the morning and at bedtime. Rinse mouth with water after use to reduce aftertaste and incidence of candidiasis. Do not swallow. 1 each 11 cyclobenzaprine (Flexeril) 10 MG tablet Take 1 tablet by mouth every 8 (eight) hours. cyclobenzaprine (Flexeril) 10 MG tablet Take 0.5 tablets (5 mg) by mouth 3 times daily. 30 tablet 2 D3 Super Strength 50 MCG (2000 UT) capsule TAKE 1 CAPSULE BY MOUTH AT BEDTIME 90 capsule 3 etanercept (Enbrel SureClick) 50 MG/ML injection Inject 1 mL under the skin once a week. Ferrous Sulfate (iron) 325 (65 Fe) MG tablet TAKE 1 TABLET BY MOUTH AT BEDTIME 90 tablet 3 folic acid (Folvite) 1 MG tablet Take 1 tablet (1,000 mcg) by mouth in the morning. 30 tablet 3 FREESTYLE LITE test strip TEST BLOOD SUGAR TWICE DAILY 100 strip 5 hydroCHLOROthiazide (HYDRODiuril) 25 MG tablet TAKE 1 TABLET BY MOUTH EVERY MORNING 90 tablet 3 hydroxychloroquine (Plaquenil) 200 MG tablet Take 1 tablet (200 mg) by mouth in the morning. 30 tablet 3 hydrOXYzine HCl (Atarax) 50 MG tablet TAKE 1 TABLET BY MOUTH TWICE DAILY IN THE MORNING AND IN THE EVENING 60 tablet 2 lidocaine (Lidoderm) 5 % patch Apply 1 patch topically Once per day. 30 patch 2 lidocaine (Lidoderm) 5 % patch Apply 1 patch topically Once per day. Remove & discard patch within 12 hours or as directed by . 30 patch 3 lisinopril 5 MG tablet Take 1 tablet (5 mg) by mouth Once per day. 30 tablet 11 metFORMIN (Glucophage) 500 MG tablet TAKE 1 TABLET BY MOUTH TWICE DAILY IN THE MORNING AND IN THE EVENING WITH FOOD 180 tablet 3 methotrexate 2.5 MG tablet take 8 tablet by oral route every week No current facility-administered medications on file prior to visit. documented in this encounter Miscellaneous Notes * Assessment & Plan Note - Ally Lema MD - 06/22/2025 10:42 AM EST Associated Problem(s): Anxiety Counseling done today, I prescribed for her again hydroxyzine 50 mg every 8 hours if needed * Assessment & Plan Note - Ally Lema MD - 06/22/2025 10:42 AM EST Associated Problem(s): UTI symptoms Advised to drink plenty of water and do not hold the urine I ordered a UA and culture I advised to give the sample before starting the antibiotic that I prescribed for her Macrobid 100 mg twice a day for 1 week * Assessment & Plan Note - Ally Lema MD - 06/22/2025 10:41 AM EST Associated Problem(s): Type 2 diabetes mellitus without complication, without long-term current useof insulin ([facility]) I counseled patient regarding diabetic diet, I advised to continue with metformin and today I addedMounjaro 2.5 mg weekly, I advised to log her glucose and bring the log for next appointment documented in this encounter Plan of Treatment Upcoming Encounters Date Type Department Care Team (Late st Contact Info) Description 09/12/2025 11:30 AM EST Office Visit [facility] OPTOMETRY [address] [place] [address] Brittny Lomas, OD [address] [place] [address] Scheduled Orders Name Type Priority Associated Diagnoses Orde r Schedule Urinalysis with reflex microscopic Lab Routine UTI symptoms Expected: 06/22/2025, Expires: 06/22/2026 Culture, Urine, Routine Microbiology Routine UTI symptoms Expected: 06/22/2025 (Approximate), Expires: 06/22/2026 documented as of this encounter Visit Diagnoses Diagnosis Dietary counseling Dietary surveillance and counseling Exercise counseling UTI symptoms Type 2 diabetes mellitus without complication, without long-term current use of insulin ([facility]) Anxiety Anxiety state, unspecified documented in this encounter Additional Health Concerns Assessment Noted Time PHQ-9 Depression Total Score: 0 06/22/20 25 10:02 AM EST documented as of this encounter Care Teams Managing Broker Relationship Specialty Start Date End Date Ally Rodriguez MD [address] [place] [address] PCP - General Family Medicine 07/02/19 documented as of this encounter
[2025-06-23 11:27] LABS: MANUAL DIFF FLAG NO
--- OUTSIDE RECORDS SUMMARY | 2025-06-23 11:34 | XMS_ITS | Encounter Summary ---
Author Organization [employer] Address [address] [facility] [address] [place] [address] Care Team Providers Care Apparel Merchandiser Name Role Phone Ally Rodriguez MD Primary Care Provide r Encounter Details Date Type Department Care Team (Latest Contact Info) Description 03/06/2021 Abstract [facility] CONVERSIONS Dental, Provider, DDS Social [...] Description 09/12/2025 11:30 AM EST Office Visit [facility] OPTOMETRY [address] [place] [address] Abebe, Brittny, OD [address] [place] [address] documented as of this encounter Visit Diagnoses Not on filedocumented in this encounter Care Teams Apparel Merchandiser Relationship Specialty Start Date End Date Ally Rodriguez MD [address] [place], [place] [phone] PCP - General Family Medicine 07/02/19 documented as of this encounter
--- OUTSIDE RECORDS SUMMARY | 2025-06-23 11:34 | XMS_ITS | Encounter Summary ---
Author Organization [employer] Address [address] [facility] [address] [place] [address] Care Team Providers Care Preventive Maintenance Coordinator Name Role Phone Ally Rodriguez MD Primary Care Provide r Reason for Visit * Reason Comments Med Refill Encounter Details Date Type Department Care Team (Late st Contact Info) Description 07/15/2023 Refill [facility] MEDICINE [address] [place], [place] [phone] Whitney Robins MD [address] [place], [place] [phone] Chronic low back pain, unspecified back pain [...] Description 09/12/2025 11:30 AM EST Office Visit [facility] OPTOMETRY [address] [place] [address] Brittny Lomas, OD [address] [place] [address] documented as of this encounter Visit Diagnoses Diagnosis Chronic low back pain, unspecified back pain laterality, unspecified whether sciatica present documented in this encounter Additional Health Concerns Assessment Noted Time PHQ-9 Depression Total Score: 15 023 10:50 AM EDT documented as of this encounter Care Teams Preventive Maintenance Coordinator Relationship Specialty Start Date End Date Ally Rodriguez MD [address] [place] [address] PCP - General Family Medicine 07/02/19 documented as of this encounter
--- OUTSIDE RECORDS SUMMARY | 2025-06-23 11:34 | XMS_ITS | Clinical Summary ---
Author Organization [employer] Address [address] [facility] [address] [place] [address] Care Team Providers Care Movement Education Specialist Name Role Phone Ally Rodriguez MD Primary Care Provide r Allergies Active Allergy Reactions Criticality Noted Date Comments Cat Dander 02/05/2021 Dog Epithelium (Canis Lupus Familiaris) 02/05/2021 Medications folic acid (Folvite) 1 MG tabletIndication s:Rheumatoid arthritis, involving unspecified site, unspecified whether rheumatoid factor present (CMS/HCC) (HCC) Take 1 tablet (1,000 mcg) by mouth in the morning. 30 tablet 3 2 Active cyclobenzaprine (Flexeril) 10 MG tablet Take 1 tablet by mouth every 8 (eight) hours. 2 Active etanercept (Enbrel SureClick) 50 MG/ML injection Inject 1 mL under the skin once a week. Active methotrexate 2.5 MG tablet take 8 tablet by oral route every week 0 Active hydroxychloroqui ne (Plaquenil) 200 MG tabletIndication s:Seropositive rheumatoid arthritis (CMS/HCC) (HCC) Take 1 tablet (200 mg) by mouth in the morning. 30 tablet 3 3 Active Alcohol Swabs (Alcohol Prep) 70 % padsIndications: Type 2 diabetes mellitus without complication, without long-term current use of insulin ([facility]) USE DIRECTED TWICE DAILY 100 each 5 4 Active FREESTYLE LITE test stripIndications :Type 2 diabetes mellitus without complication, without long-term current use of insulin ([facility]) TEST BLOOD SUGAR TWICE DAILY 100 strip 5 4 Active lidocaine (Lidoderm) 5 % patchIndications :Chronic bilateral low back pain without sciatica Apply 1 patch topically Once per day. 30 patch 2 4 Active Acetaminophen Extra Strength 500 MG tabletIndication s:Chronic bilateral low back pain without sciatica TAKE 2 TABLETS BY MOUTH EVERY 8 HOURS NEEDED FOR PAIN 40 tablet 4 Active lidocaine (Lidoderm) 5 % patchIndications :Chronic bilateral low back pain without sciatica Apply 1 patch topically Once per day. Remove & discard patch within 12 hours or as directed by MD. 30 patch 3 5 Active cyclobenzaprine (Flexeril) 10 MG tabletIndication s:Chronic bilateral low back pain without sciatica Take 0.5 tablets (5 mg) by mouth 3 times daily. 30 tablet 2 5 Active budesonide-formo terol (Symbicort) 160-4.5 MCG/ACT inhalerIndicatio ns:Moderate persistent asthma, unspecified whether complicated Inhale 2 puffs in the morning and at bedtime. Rinse mouth with water after use to reduce aftertaste and incidence of candidiasis. Do not swallow. 1 each 5 026 Active albuterol (2.5 MG/3ML) 0.083% nebulizer solutionIndicati ons:Moderate persistent asthma, unspecified whether complicated Take 3 mL by nebulization every 6 (six) hours if needed for wheezing. 75 mL 1 5 Active lisinopril 5 MG tabletIndication s:Essential hypertension Take 1 tablet (5 mg) by mouth Once per day. 30 tablet 11 5 026 Active atorvastatin (Lipitor) 40 MG tablet TAKE 1 TABLET BY MOUTH AT BEDTIME 90 tablet 1 5 Active hydroCHLOROthiaz sophie (HYDRODiuril) 25 MG tabletIndication s:Essential hypertension TAKE 1 TABLET BY MOUTH EVERY MORNING 90 tablet 3 5 Active Ferrous Sulfate (iron) 325 (65 Fe) MG tabletIndication s:Iron deficiency anemia, unspecified iron deficiency anemia type TAKE 1 TABLET BY MOUTH AT BEDTIME 90 tablet 3 5 Active metFORMIN (Glucophage) 500 MG tabletIndication s:Type 2 diabetes mellitus without complication, without long-term current use of insulin (HCC) TAKE 1 TABLET BY MOUTH TWICE DAILY IN THE MORNING AND IN THE EVENING WITH FOOD 180 tablet 3 5 Active D3 Super Strength 50 MCG (2000 UT) capsuleIndicatio ns:Vitamin D deficiency TAKE 1 CAPSULE BY MOUTH AT BEDTIME 90 capsule 3 5 Active amitriptyline (Elavil) 10 MG tabletIndication s:Chronic low back pain, unspecified back pain laterality, unspecified whether sciatica present TAKE 1 TABLET BY MOUTH AT BEDTIME 30 tablet 5 5 Active hydrOXYzine HCl (Atarax) 50 MG tabletIndication s:Anxiety TAKE 1 TABLET BY MOUTH TWICE DAILY IN THE MORNING AND IN THE EVENING 60 tablet 2 5 Active nitrofurantoin, macrocrystal-mon ohydrate, (Macrobid) 100 MG capsuleIndicatio ns:UTI symptoms Take 1 capsule (100 mg) by mouth 2 times daily for 7 days. 14 capsule 5 025 Active Tirzepatide (Mounjaro) 2.5 MG/0.5ML solution auto-injectorInd ications:Type 2 diabetes mellitus without complication, without long-term current use of insulin (HCC) Inject 2.5 mg under the skin 1 (one) time per week. 2 mL 2 5 Active hydrOXYzine pamoate (Vistaril) 50 MG capsuleIndicatio ns:Anxiety Take 1 capsule (50 mg) by mouth every 8 (eight) hours if needed for anxiety for up to 10 days. 30 capsule 5 025 Active Active Problems Problem Noted Date Diagnosed Date UTI symptoms 06/22/2025 Assessment & Plan (06/22/2025 10:42 AM EST): Advised to drink plenty of water and do not hold the urine I ordered a UA and culture I advised to give the sample before starting the antibiotic that I prescribed for her Macrobid 100 mg twice a day for 1 week Encounter for preventive care 03/23/2025 Encounter for Papanicolaou smear of cervix 03/23 Assessment & Plan (03/23/2025 11:15 AM EDT): Pap smear and pelvic exam done today patient will be contacted with results Rheumatoid arthritis of [facility] with negative rheumatoid factor ([facility]) 02/07/2025 Assessment & Plan (02/07/2025 4:12 PM EDT): Continue to follow-up with rheumatology Class 2 severe obesity due t o excess calories with serious comorbidity and body mass index (BMI) of 36.0 to 36.9 in adult 12/02/2024 Assessment & Plan (12/03/2024 3:22 PM EDT): Extensive counseling about healthy diet and exercise on today, I will refer her to e d tech Other fatigue 04/01/2024 Assessment & Plan (04/16/2024 [...] use of insulin 01/14/2023 Assessment & Plan (06/22/2025 10:41 AM EST): I counseled patient regarding diabetic diet, I advised to continue with metformin and today I added Mounjaro 2.5 mg weekly, I advised to log her glucose and bring the log for next appointment Assessment & Plan (12/03/2024 3:23 PM EDT): [...] modifications - Continue current medications Anxiety 07/24/2022 Assessment & Plan (06/22/2025 10:42 AM EST): Counseling done today, I prescribed for her again hydroxyzine 50 mg every 8 hours if needed Dyspnea on exertion 07/24/2022 Essential hypertension 07/24/2022 [...] albuterol solution Mood disorder 07/24/2022 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 [address] [place] [address] Ally Rodriguez MD Dietary counseling; Exercise counseling; UTI symptoms; Type 2 diabetes mellitus without complication, without long-term current use of insulin (HCC); Anxiety 06/22/2025 Travel 06/13/2025 Travel 06/06/2025 10:45 AM EDT Office Visit [facility] [address] [place] [address] Jose Lomasn, OD Presbyopia of both eyes (Primary Dx) 05/13/2025 9:00 AM EDT Office Visit [facility] [address] [place] [address] Jose Lomasn, OD Diabetes type 2, no ocular involvement (CMS/[facility]) (Primary Dx); Rheumatoid arthritis, involving unspecified site, unspecified whether rheumatoid factor present ([facility]); Encounter for long-term (current) use of high-risk medication; Dry eyes; Presbyopia of both eyes 05/13/2025 Travel 04/30/[address] [facility] [address] [place] [address] Ally Rodriguez MD Chronic low back pain, unspecified back pain laterality, unspecified whether sciatica present; Anxiety 03/29/2025 Results Follow-Up [facility] [address] [place] [address] Ally Rodriguez MD Pap Smear, Bacterial Vaginosis, Chlamydia/N. Gonorrhoeae RNA, TMA, Vaginal 03/23/2025 10:45 AM EDT Procedure Visit [facility] [address] [place] [address] Ally Rodriguez MD Encounter for Papanicolaou smear of cervix; Chronic bilateral low back pain without sciatica 03/23/[address] [facility] [address] [place] [address] Ally Rodriguez MD 03/23/2025 Travel from Last 3 Months Immunizations Immunization Administration [...] Description 09/12/2025 11:30 AM EST Office Visit [facility] [address] [place] [address] Abebe, Brittny, OD [address] [place] [address] Health Maintenance Due Date Last Done Comments [...] 2025 , 07/02/2023, 06/24/2022, Additional history exists Diabetes: Hemoglobin A1C 06/03/2025 025, 04/01/2024, 09/22/2023, Additional history exists Alcohol/Substance Use Screening 12/02/2025 12/02/2024 SDOH Screening 12/02/2025 12/02/2024 Disability Screening 02/07/2026 02/07/2025 Tobacco Screening 05/20/2026 05/20/2025 Depression Screening 06/22/2026 06/22/2025, 06/22/20 25 Dental X-Ray: Full Mouth 11/04/2026 11/04/2023, 02/16 Eye Exam 05/13/2027 05/13/2025, 04/19, 05/13/2025, Additional history exists DTaP/Tdap/Td Vaccines (2 - Td or Tdap) 06/26/2028 06/26/2018 Zoster Vaccines (1 of 2) 2028 Cervical Cancer Screening 03/23/2030 HPV/Cotest 03/23/2030 03/23/2025 Pap Smear 03/23/2030 03/23/2025 RSV Patients and Patients Aged 60 years or older (1 - 1-dose 75+ series) 2053 HIV Screening Completed 04/01/2024 COVID-19 Vaccine Completed 07/07/2024, , 07/24/2021, Additional history exists Hepatitis B Vaccines Completed 01/07/2025, 08/06/2024, 07/07/2024 Hepatitis C Screening Completed 04/27/2025 , 04/01/2024, 10/30/2022 HIB Vaccines Aged Out No longer eligi [...] Procedure Name Priority Date/Time Associated Diagnosis Comments OCT, RETINA - OU - BOTH EYES Routine 05/13/2025 9:00 AM EDT Rheumatoid arthritis, involving unspecified site, unspecified whether rheumatoid factor present ([facility]) ([facility]) Encounter for long-term (current) use of high-risk medication T-SPOT(R).TB Routine 04/27/2025 11:07 AM EDT HEPATITIS PANEL, GENERAL Routine 04/27/2025 11:07 AM EDT C-REACTIVE PROTEIN Routine 04/27/2025 11 :07 AM EDT COMPREHENSIVE METABOLIC PANEL Routine 04/27/2025 11:07 AM EDT SED RATE BY MODIFIED WESTERGREN Routine 04/27/2025 11:07 AM EDT CBC WITH AUTO DIFFERENTIAL Routine 04/27/2025 11:07 AM EDT PAP SMEAR Routine 03/23/2025 11:14 AM EDT [...] current use of insulin ([facility]) HIV 1/2 ANTIGEN/ANTIBODY, FOURTH GENERATION W/RFL Routine [...] Recently Relevant to Health Maintenance Results * OCT, Retina - OU - Both Eyes (05/13/2025 9:00 AM EDT) Narrative Abebe, Brittny, OD - 05/20/2025 2:38 PM EDT Images from the original result were not included. OCT [facility] Optical Coherence Tomography Interpretation Report Measurements: OD OS Macula Thickness 228 microns 226 microns Test findings: OD: Normal foveal contour, no cystoid macular edema, no retinal pigment epithelium disruption, no subretinal fluid OS: Normal foveal contour, no cystoid macular edema, no retinal pigment epithelium disruption, no subretinal fluid Impression and Plan: No suspicion for Plaquenil related maculopathy at this time. Will monitor with a macula visual field in 3-4 months. Brittny Lomas OD OPHTH TOMOGRAPHY Final Result * T-SPOT??.TB (04/27/2025 11:07 AM EDT) T Spot TB Negative Negative [facility] Comment:A negative test resu lt does not exclude the possibilityof exposure to or infection with Mycobacteriumtuberculosis (M. tuberculosis). Patients with recentexposure to TB infected individuals exhibiting anegative T-SPOT.TB result should be considered forretesting within 6 weeks or if other relevant clinicalsymptoms indicate. Results from T-SPOT.TB testing mustbe used in conjunction with each individual'sepidemiological history, current medical status,and results of other diagnostic evaluations.The T-SPOT.TB test is qualitative and results arereported as positive, borderline, or negative, giventhat the test controls perform as expected. In linewith the Centers for Disease Control and Prevention's2010 recommendation to report quantitative measurementsalongside the qualitative result, the laboratoryprovides spot counts for informational purposes only.The T-SPOT.TB test should not be interpreted as aquantitative test. TS PANEL A 0 [facility] TS PANEL B 0 [facility] Negative Control Passed [facility] Positive Control Passed [facility] Comment:For additional infor mation, please refer [email or web address]/[email or web address](This link is being provided for informational/educational purposes only.)THIS TEST WAS PERFORMED AT:[employer] [id number] [place] [id number] BURTON MD,PHD 04/27/2025 11:0 7 AM EDT 04/27/2025 1:13 PM EDT Generic External Data Provider LAB BLOOD ORDERAB LES Final Result Performing Organization Address [facility]/ZIP Co de Phone Number [facility] [address] [place] [phone] * Hepatitis Panel, General (04/27/2025 11:07 AM EDT) [facility] Hepatitis A IgM Nonreactive Nonreactive [facility] Comment:IgM antibodies to ASHBY V not detected; does not exclude earlyacute or recovered HAV infection. ~Hepatitis B Surface Antibody REACTIVE Nonreactive [facility] Comment:REACTIVE: > 11.99 mI U/mL Hepatitis B Core Antibody Nonreactive Nonreactive [facility] Hepatitis C Antibody Nonreactive Nonreactive [facility] Comment:Antibodies to HCV no t detected; does not exclude early acuteHCV infection. Hepatitis B Surface Ag Negative Negative [facility] 04/27/2025 11:0 7 AM EDT 04/27/2025 6:13 PM EDT Generic External Data Provider LAB BLOOD ORDERAB LES Final Result Performing Organization Address [facility]/ZIP Co de Phone Number [facility] [address] [place] [phone] * (ABNORMAL) CBC auto differential (04/27/2025 11:07 AM EDT) [facility] White Blood Count 9.6 4.8 - 10.8 X10*3/uL [facility] Red Blood Count 4.67 4.20 - 5.50 X10*6/uL [facility] Hemoglobin 10.3(L) 12.0 - 16.0 g/dl [facility] Hematocrit 32.9(L) 37.0 - 47.0 % [facility] Mean Corpuscular Volume 70.4(L) 80.0 - 98.0 fL [facility] Mean Corpuscular Hemoglobin 22.1(L) 27.0 - 33.0 pg [facility] Mean Corpuscular HGB Conc 31.3 31.0 - 35.0 g/dl [facility] Red Cell Distribution Width 16.3(H) 11.0 - 16.0 % [facility] Platelet Count 320 160 - 400 X10*3/uL [facility] Mean Platelet Volume 11.6 9.4 - 12.3 fL [facility] Neutrophils Percent Auto 50.7 45 - 73 % [facility] Imm Gran Pct Auto 0.2 0.0 - 0.4 % [facility] Lymphocytes Percent Auto 31.2 20 - 40 % [facility] Monocytes Percent Auto 7.1 2 - 11 % [facility] Eosinophils Percent Auto 10.1(H) 0 - 4 % [facility] Basophils Percent Auto 0.7 0 - 2 % [facility] NRBC Pct Auto 0.0 0.0 - 0.2 /100WBC [facility] Neutrophils Absolute Auto 4.9 2.0 - 8.3 x10*3/uL [facility] Imm Gran Abs Auto 0.02 0.00 - 0.03 X10*3/uL [facility] Lymphocytes Absolute Auto 3.0 1.2 - 4.9 X10*3/uL [facility] Monocytes Absolute Auto 0.7 0.1 - 1.2 X10*3/uL [facility] Eosinophils Absolute Auto 1.0(H) 0.0 - 0.4 X10*3/uL [facility] Basophils Absolute Auto 0.1 0.0 - 0.2 X10*3/uL [facility] NRBC Abs Auto 0.000 0.0 - 0.012 X10*3/uL [facility] 04/27/2025 11:0 7 AM EDT 04/27/2025 1:13 PM EDT us Generic External Data Provider LAB BLOOD ORDERAB LES Final Result [facility] [address] [place] [phone] [phone] * (ABNORMAL) Sed Rate by Modified Westergren (04/27/2025 11:07 AM EDT) Pathologist [facility] Erythrocyte Sedimentation Rate 23(H) 0 - 20 MM/HR [facility] Comment:Patients with polycy themia and many hemoglobin abnormalitiesmay have depressed sed rates whereas patients with anemiamay have elevated sed rates. 04/27/2025 11:0 7 AM EDT 04/27/2025 1:13 PM EDT Generic External Data Provider LAB BLOOD ORDERAB LES Final Result Performing Organization Address [facility]/ZIP Co de Phone Number [facility] [address] [place] [phone] * C-reactive Protein (04/27/2025 11:07 AM EDT) [facility] C Reactive Protein 0.22 < or = 0.50 mg/dL [facility] 04/27/2025 11:0 7 AM EDT 04/27/2025 6:13 PM EDT Generic External Data Provider LAB BLOOD ORDERAB LES Final Result Performing Organization Address City/[facility]/ZIP Co de Phone Number [facility] [address] [place] [phone] * (ABNORMAL) Comprehensive Metabolic Panel (04/27/2025 11:07 AM EDT) [facility] Sodium 139 135 - 145 mmol/L [facility] Potassium 3.7 3.3 - 5.1 mmol/L [facility] Chloride 107 96 - 108 mmol/L [facility] Carbon Dioxide 25 22 - 29 mmol/L [facility] Anion Gap 11(L) 12 - 20 [facility] Urea Nitrogen (BUN) 8(L) 9 - 16 mg/dL [facility] Creatinine, Serum 0.74 0.5 - 1.4 mg/dL [facility] Estimated Glomerular Filt Rate >60 [facility] Comment:Chronic Kidney Disea se: Estimated GFR < 60 mL/min/1.72b5Exlqdd Kidney Disease: Estimated GFR < 15 mL/min/1.73m2 Glucose 105 60 - 115 mg/dL [facility] Calcium 9.0 8.4 - 10.2 mg/dL [facility] Bilirubin, Total 0.4 0.0 - 1.0 mg/dL [facility] Aspartate Amino Transferase 21 5 - 31 U/L [facility] Alanine Aminotransferase 21 0 - 31 U/L [facility] Total Protein 8.1(H) 6.5 - 8.0 g/dL [facility] Albumin Level 4.1 3.5 - 5.0 g/dL [facility] Alkaline Phosphatase 77 39 - 117 U/L [facility] 04/27/2025 11:0 7 AM EDT 04/27/2025 6:13 PM EDT us Generic External Data Provider LAB BLOOD ORDERAB LES Final Result [facility] [address] [place] [phone] * Bacterial Vaginosis (03/23/2025 11:14 AM EDT) TRICHOMONAS VAGINALIS DETECTION BY PCR NOT DETECTED Not Detect [facility] BACTERIAL VAGINOSIS DETECTION BY PCR NEGATIVE Negative [facility] Comment:The BV organism targ ets of [...] DETECTION BY PCR NOT DETECTED Not Detect [facility] Sena glab krusei PCR NOT DETECTED Not Detect [facility] Swab Vaginal structure / Unknown 03/23/2025 11:14 AM EDT 03/23/2025 6:11 PM EDT Ally Lema MD LAB MICROBIOLOGY - GE NERAL ORDERABLES Final Result [facility] [address] [place] [phone] * HPV DNA, Low/High Risk (03/23/2025 11:14 AM EDT) HPV High Risk Negative Negative [facility] HPV Genotype 16 Negative Negative [facility] HPV Genotype 18 Negative Negative [facility] Comment:HPV testing performe d at [facility] (CLIA#[id number]), [address] [place] [address].Testing for HPV was performed using the Michael GIANCARLO [employer]0system. The presence of HPV in the female [...] BLOOD ORDERABLES Final Result Performing Organization Address [facility]/ZIP Co de Phone Number [facility] [address] [place] [address] [phone] * Chlamydia/N. Gonorrhoeae RNA, TMA, Vaginal (03/23/2025 11:14 AM EDT) CT PCR NOT DETECTED Not Detect. [facility] Comment:A not detected test result does [...] psychologicalconsequences. NG PCR NOT DETECTED Not Detect. [facility] Comment:A not detected test result does [...] us Ally Lema MD LAB MICROBIOLOGY - NERAL ORDERABLES Final Result [facility] [address] [place] [phone] * Pap Smear (03/23/2025 11:14 AM EDT) Swab 03/23/2025 11:1 4 AM EDT 03/24/2025 7:45 AM EDT Narrative [facility] - 03/28/2025 12:11 PM EDT ----- ------- Name: Tania Mack Age/Sex: 44/F : 1980 Unit#: [id number] Attend Dr: Ally Rodriguez MD Re03/23/25 Status: [facility] REF Location: [facility] Disch: ----- ------- SPEC : [id number] RECD: 03/24/2545 STATUS: RUBIN PRATHER NUM: [id number] PIPO: 03/23/25 [facility] DR: Ally Rodriguez MD ENTERED: 03/24/250758 SP TYPE: Pap Smr OTHR DR: ORDERED: Pap Smear Interpretation Satisfactory for [...] and HPV testing will be performed at [facility] (CLIA #[id number]), [address] [place] [address]. Testing for HPV was performed using the [employer] system. The presence of HPV in the [...] detected. All professional services are performed by [facility] ([address] [place], [place] [id number]; ; CLIA #[id number]). The PAP Test is a screening procedure with the inherent possibility of both false negative and false positive results. Results should be interpreted in the context of historic and current clinical findings. Reliability of the PAP Test is enhanced by performing the test on a regular repetitive basis. CONTINUED ON NEXT PAGE ----- ------- Name: Tania Mack Age/Sex: 44/F : 1980 Unit#: [id number] Attend Dr: Ally Rodriguez MD Re03/23/25 Status: DEP [facility] Dis[facility]: ----- ------- SPEC : [id number] RECD: 03/24/2545 STATUS: RUBIN PRATHER NUM: [id number] PIPO: 03/23/25 [facility] DR: Ally Rodriguez MD ENTERED: 03/24/250758 SP TYPE: Pap Juan Carlos MONTIEL DR: ORDERED: Pap Smear ----- ------- Signed (signature on file) LEONIDES Sharma (ASCP) 03/28/25 1211 ----- ------- END OF REPORT us Ally Lema MD LAB CYTOLOGY ORDERABL ES Final Result [facility] [address] [place] [phone] * POCT HGB A1C (12/02/2024 3:10 PM EDT) Hemoglobin A1C 5.9 4.0 - 6.0 % QC Media Lot # [id number] Lot# Expiration Date ,636 Blood 12/02/2024 3:10 PM EDT us Ally Lema MD POINT OF CARE TEST EN TER/EDIT ORDERABLES Final Result * (ABNORMAL) Lipid Panel with Reflex to Direct LDL (04/01/2024 2:43 PM EDT) Triglycerides 173(H) <150 mg/dL [facility] Comment:Desirable Triglyceri de: less than 150 mg/dLBorderline High Triglyceride 150-199 mg/dLHigh Triglyceride: 200-499 mg/dLVery High Triglyceride: greater than or equal to 5OO mg/dL Cholesterol 163 <200 mg/dL [facility] Comment:Desirable Cholestero l: less than 200 mg/dLBorderline High Cholesterol: 200-239 mg/dLHigh Cholesterol: greater than 239 mg/dL LDL Cholesterol Calculated 90 <100 mg/dL [facility] Comment:Desirable LDL: less than 100 mg/dLNear [...] Lema MD LAB BLOOD ORDERABLES Final Result [facility] [address] [place] [phone] * HIV-1/2 Antigen and Antibodies, Fourth Generation, with Reflexes (04/01/2024 2:43 PM EDT) HIV AB/AG Nonreactive Nonreactive [facility] Comment:HIV-1 p24 Ag and/or HIV-1/HIV-2 Ab not detected.A test result that is nonreactive does not exclude thepossibility of exposure to or infection with HIV-1 and/orHIV-2. Nonreactive results in this assay for individualswith prior exposure to HIV-1 and/or HIV-2 may be due toantigen and antibody levels that are below the limit ofdetection of this assay.The [employer] HIV Ag/Ab Combo assay result andsupplemental assay results should be interpreted inconjunction with the patient's clinical presentation,history and other laboratory results. If the results areinconsistent with clinical evidence, additional testing issuggested to confirm the result. Blood Venous blood specimen / Unknown 04/01/2024 2:43 PM EDT 04/01/2024 3:54 PM EDT us Ally Lema MD LAB BLOOD ORDERABLES Final Result Performing Organization Address [facility] Co de Phone Number [facility] [address] [place] [phone] * Albumin, Random Urine W/Creatinine (07/02/2023 10:38 AM EST) Creatinine, Urine 69.16 mg/dL [facility] Microalbumin Urine <5.0 mg/L [facility] Microalbum Creatinine Ratio Ur TNP <30 ug/mg cr [facility] Comment:Unable to calculate albumin/creatinine ratio due to lowmicroalbumin or creatinine result. 07/02/2023 10:3 8 AM EST 07/02/2023 11:04 AM EST us Ally Lema MD LAB URINE ORDERABLES Final Result Performing Organization Address [facility] de Phone Number [facility] [address] [place] [phone] * BI Mammogram Screening Tomosynthesis Bilateral (02/24/2023 9:40 AM EDT) Anatomical Region Laterality Modality Breast Bilateral Mammography 02/24/2023 9:40 AM EDT Narrative 03/15/2023 2:12 PM EDT [facility]'s [address] [place] [address] Mammography Report Signed Patient: Tania Mack MR#: [id number] : 1980 Acct:[id number] Age/Sex: 42 / F ADM Date: 02/24/23 Loc: [facility] Attending Dr: Ally Lema MD Ordering Physician: Ally Rodriguez MD Results: Date of Service: 02/24/23 Follow Up: Procedure(s): MM tomosynthesis screening BI Accession Number(s): [id number] cc: Ally Rodriguez MD EXAMINATION: MM SCREENING [...] in OV> 03/15/23 1409 DD/ 0940 TD/TT: Aircraft Power Plant Assembler: Procedure Note Donotuseinterpreter, Image - 03/15/2023 [facility] [address] [place] [address] Mammography Report Signed Patient: Celia Mack#: [id number] : 1980Acct:[id number] Age/Sex: 42 / FADM Date: 02/24/23 Loc: [facility] Attending Dr: Ally Lema MD Ordering Physician: Ally Rodriguez MDResults: Date of Service: 02/24/23Follow Up: Procedure(s): MM tomosynthesis screening BI Accession Number(s): [id number] cc: Ally Rodriguez MD EXAMINATION: MM SCREENING [...] in OV> 03/15/23 1409 DD/ 0940 TD/TT: Aircraft Power Plant Assembler: Ally Lema MD IMG BI PROCEDURES Pablito pebbles Result - Final from Last 3 Months or Most Recently Relevant to Health Maintenance Insurance [employer] Care Teams Movement Education Specialist Relationship Specialty Start Date End Date Ally Rodriguez MD [address] [place] [phone] PCP - General Family Medicine 07/02/19
--- OUTSIDE RECORDS SUMMARY | 2025-06-23 11:34 | XMS_ITS | Encounter Summary ---
Author Organization [employer] Address [address] [facility] 7t [place] [address] Care Team Providers Care Investigator Vice Name Role Phone Ally Rodriguez MD Primary Care Provide r Encounter Details Date Type Department Care Team (Latest Contact Info) Description 06/22/2025 Travel Social History Tobacco Use Types Packs/Day [...] on edge 0 12/2024 10:02 AM Jade Stevens MA Not being able to stop or [...] Stevens [place] documented as of this encounter Plan of Treatment Upcoming Encounters Date Type Department Care Team (Late st Contact Info) Description 09/12/2025 11:30 AM EST Office Visit [facility] [address] [place] [address] Brittny Lomas, OD [address] [facility] [place] [address] documented as of this encounter Visit Diagnoses Not on filedocumented in this encounter Additional Health Concerns Assessment Noted Time PHQ-9 Depression Total Score: 0 06/22/20 10:02 AM EST documented as of this encounter Care Teams Investigator Vice Relationship Specialty Start Date End Date Ally Rodriguez MD [address] [place] [address] PCP - General Family Medicine 07/02/19 documented as of this encounter
--- OUTSIDE RECORDS SUMMARY | 2025-06-23 11:34 | XMS_ITS | Encounter Summary ---
Author Organization [employer] Address [address] [facility] [address]t [place] [address] Care Team Providers Care Quality Assurance Advisor Name Role Phone Ally Rodriguez MD Primary Care Provide r Reason for Visit * Reason Comments Med Refill Encounter Details Date Type Department Care Team (Late st Contact Info) Description 11/10/[address] [facility] [address] [place], [place] [phone] Aravind Simpson DDS [address] [place], [place] [phone] Social History Tobacco Use Types Packs/Day Years [...] 09/12/2025 11:30 AM EST Office Visit [facility] OPTOMET[facility] [address] [place] [address] Abebe, Brittny, OD [address] [place] [address] documented as of this encounter Visit Diagnoses Not on filedocumented in this encounter Additional Health Concerns Assessment Noted Time PHQ-9 Depression Total Score: 15 023 10:50 AM EDT documented as of this encounter Care Teams Quality Assurance Advisor Relationship Specialty Start Date End Date Ally Rodriguez MD [address] [place] [address] PCP - General Family Medicine 07/02/19 documented as of this encounter
--- OUTSIDE RECORDS SUMMARY | 2025-06-23 11:34 | XMS_ITS | Encounter Summary ---
Author Organization [employer] Address [address] [facility] 7t [place] [address] Care Team Providers Care Compressor Operator Adjuster Name Role Phone Ally Rodriguez MD Primary Care Provide r Encounter Details Date Type Department Care Team (Late Contact Info) Description 02/25/2023 Orders Only [facility] PEDS [address] [place] [address] Siri Grant LPN Social History Tobacco Use [...] Description 09/12/2025 11:30 AM EST Office Visit [facility] OPTOMETRY [address] [place], [place] [phone] Brittny Lomas, OD [address] [place], [place] [phone] documented as of this encounter Visit Diagnoses Not on filedocumented in this encounter Additional Health Concerns Assessment Noted Time PHQ-9 Depression Total Score: 15 023 10:50 AM EDT documented as of this encounter Care Teams Compressor Operator Adjuster Relationship Specialty Start Date End Date Ally Rodriguez MD [address] [place] [address] PCP - General Family Medicine 07/02/19 documented as of this encounter
--- OUTSIDE RECORDS SUMMARY | 2025-06-23 11:34 | XMS_ITS | Encounter Summary ---
Author Organization [employer] Address [address] [facility] 7t [place] [address] Care Team Providers Care Arch Pad Cementer Name Role Phone Ally Rodriguez MD Primary Care Provide r Reason for Visit * Reason Comments Med Refill Encounter Details Date Type Department Care Team (Late Contact Info) Description 03/18/2023 Refill [facility] MED [facility] PEDS [address] [place], [place] [phone] Disha Fabian MD [address] [place], [place] [phone] Anxiety Social History Tobacco Use Types Packs/Day [...] Department Care Team (Late Contact Info) Description 09/12/2025 11:30 AM EST Office Visit [facility] OPTOMETRY [address] [place], [place] [phone] Abebe, Brittny, OD [address] [place], [place] [phone] documented as of this encounter Visit Diagnoses Diagnosis Anxiety Anxiety state, unspecified documented in this encounter Additional Health Concerns Assessment Noted Time PHQ-9 Depression Total Score: 15 023 10:50 AM EDT documented as of this encounter Care Teams Arch Pad Cementer Relationship Specialty Start Date End Date Ally Rodriguez MD [address] [place] [address] PCP - General Family Medicine 07/02/19 documented as of this encounter
--- OUTSIDE RECORDS SUMMARY | 2025-06-23 11:34 | XMS_ITS | Encounter Summary ---
Author Organization [employer] Address [address] [facility] [address] [place] [address] Care Team Providers Care Locker Room Supervisor Name Role Phone Ally Rodriguez MD Primary Care Provide r Reason for Visit * Reason Comments Med Refill Encounter Details Date Type Department Care Team (Late st Contact Info) Description 06/17/2023 Refill [facility] MEDICINE [address] [place], [place] [phone] Ally Rodriguez MD [address] [place], [place] [phone] Anxiety Social History Tobacco Use Types Packs/Day [...] Description 09/12/2025 11:30 AM EST Office Visit [facility] OPTOMETRY [address] [place] [address] Brittny Lomas, OD [address] [place] [address] documented as of this encounter Visit Diagnoses Diagnosis Anxiety Anxiety state, unspecified documented in this encounter Additional Health Concerns Assessment Noted Time PHQ-9 Depression Total Score: 15 023 10:50 AM EDT documented as of this encounter Care Teams Locker Room Supervisor Relationship Specialty Start Date End Date Ally Rodriguez MD [address] [place] [address] PCP - General Family Medicine 07/02/19 documented as of this encounter
--- OUTSIDE RECORDS SUMMARY | 2025-06-23 11:35 | XMS_ITS | Encounter Summary ---
Author Organization [employer] Address [address] [facility] 7[address] [place] [address] Care Team Providers Care Coke Oven Mason Name Role Phone Ally Rodriguez MD Primary Care Provide r Reason for Visit * Reason Comments Med Refill Encounter Details Date Type Department Care Team (Late Contact Info) Description 01/16/[address] [facility] MEDICINE [address] [place], [place] [phone] Ally Rodriguez MD [address] [place], [place] [phone] Moderate persistent asthma without complication Social History [...] Description 09/12/2025 11:30 AM EST Office Visit [facility] OPTOMETRY [address] [place], [place] [phone] Abebe, Brittny, OD [address] [place], [place] [phone] documented as of this encounter Visit Diagnoses Diagnosis Moderate persistent asthma without complication documented in this encounter Additional Health Concerns Assessment Noted Time PHQ-9 Depression Total Score: 15 01/14/ 023 10:50 AM EDT documented as of this encounter Care Teams Coke Oven Mason Relationship Specialty Start Date End Date Ally Rodriguez MD [address] [place] [address] PCP - General Family Medicine 07/02/19 documented as of this encounter
--- OUTSIDE RECORDS SUMMARY | 2025-06-23 11:35 | XMS_ITS | Encounter Summary ---
Author Organization [employer] Address [address] [facility] [address] [place] [address] Care Team Providers Care Cuff Knitter Name Role Phone Ally Rodriguez MD Primary Care Provide r Reason for Visit * Reason Comments Med Refill Encounter Details Date Type Department Care Team (Late st Contact Info) Description 12/05/2022 Refill [facility] MED[facility] [address] [place], [place] [phone] Yonatan Ross MD [address] [place] [address] Type 2 diabetes mellitus without complication, without [...] Description 09/12/2025 11:30 AM EST Office Visit [facility] OPTOMETRY [address] [place], [place] [phone] Brittny Lomas, OD [address] [place], [place] [phone] documented as of this encounter Visit Diagnoses Diagnosis Type 2 diabetes mellitus without complication, without long-term current use of insulin (HCC) Essential hypertension Unspecified essential hypertension documented in this encounter Care Teams Cuff Knitter Relationship Specialty Start Date End Date Ally Rodriguez MD [address] [place] [address] PCP - General Family Medicine 07/02/19 documented as of this encounter
--- OUTSIDE RECORDS SUMMARY | 2025-06-23 11:35 | XMS_ITS | Encounter Summary ---
Author Organization [employer] Address [address] [facility] 7[address] [place] [address] Care Team Providers Care Parks And Recreation Manager Name Role Phone Ally Rodriguez MD Primary Care Provide r Reason for Visit * Reason Comments Med Refill Encounter Details Date Type Department Care Team (Late Contact Info) Description 01/16/2023 Refill [facility] MEDICINE [address] [place], [place] [phone] Name, MD Darshan [address] [place] [address] Chronic low back pain, unspecified back pain [...] Description 09/12/2025 11:30 AM EST Office Visit [facility] OPTOMETRY [address] [place] [address] Brittny Lomas, OD [address] [place] [address] documented as of this encounter Visit Diagnoses Diagnosis Chronic low back pain, unspecified back pain laterality, unspecified whether sciatica present documented in this encounter Additional Health Concerns Assessment Noted Time PHQ-9 Depression Total Score: 15 01/14/ 023 10:50 AM EDT documented as of this encounter Care Teams Parks And Recreation Manager Relationship Specialty Start Date End Date Ally Rodriguez MD [address] [place] [address] PCP - General Family Medicine 07/02/19 documented as of this encounter
[2025-06-23 11:36] LABS: Hematocrit 36.4 % (37.0-47.0); Hemoglobin 10.7 g/dl (12.0-16.0); Imm Gran Abs Auto 0.03 X10*3/uL (0.00-0.03); Imm Gran Pct Auto 0.3 % (0.0-0.4); Lymphocytes Absolute Auto 3.2 X10*3/uL (1.2-4.9); Mean Corpuscular HGB Conc 29.4 g/dl (31.0-35.0); Mean Corpuscular Hemoglobin 21.4 pg (27.0-33.0); Mean Corpuscular Volume 72.9 fL (80.0-98.0); NRBC Abs Auto 0.000 X10*3/uL (0.0-0.012); NRBC Pct Auto 0.0 /100WBC (0.0-0.2); Platelet Count 424 X10*3/uL (160-400); Red Blood Count 4.99 X10*6/uL (4.20-5.50); White Blood Count 8.7 X10*3/uL (4.8-10.8)
[2025-06-23 11:45] LABS: Appearance Urine Clear; Glucose Urine UA Negative (Negative); PH 5.5 (5.0-9.0); Specific Gravity - Urine 1.020 (1.005-1.025); UMIC TRIGGER UACC YES
[2025-06-23 11:52] LABS: Alanine Aminotransferase 40 U/L (0-31); Albumin Level 4.3 g/dL (3.5-5.0); Alkaline Phosphatase 85 U/L (39-117); Anion Gap 12 (12-20); Aspartate Amino Transferase 31 U/L (5-31); Blood Urea Nitrogen 11 mg/dL (9-16); Calcium 9.3 mg/dL (8.4-10.2); Carbon Dioxide 26 mmol/L (22-29); Chloride 106 mmol/L (96-108); Estimated Glomerular Filt Rate > 60; Potassium 3.9 mmol/L (3.3-5.1); Sodium 140 mmol/L (135-145); Total Protein 8.6 g/dL (6.5-8.0)
== END 2025-06-23 10:03 | disposition home or self-care (01) ==
LOC: HO.HHCL 10:02
PROVIDERS: Student in an Organized Health Care Education/Training Program; PCP Internal Medicine; Visit Provider Internal Medicine
DX: R39.9 Unspecified symptoms and signs involving the genitourinary system (principal); Z79.899 Other long term (current) drug therapy
CPT/HCPCS: 36415; 80053; 81001; 85025; 85652; 86140; 87086; 87147

== ENCOUNTER 2025-08-10 12:10 | Emergency (ER) | payer MEDICAID, SELFPAY ==
--- NOTE | ~2025-08-10 | MR_ITS ---
EXAMINATION: MR BRAIN WITHOUT IV CONTRAST CLINICAL INFORMATION: left facial droop, r/o acute stroke COMPARISON: Head CT on August 10, 2025. TECHNIQUE: MRI of the brain was obtained using routine sequences without contrast. FINDINGS: Brain parenchyma: No shift of midline structures. No evidence of acute infarct, mass lesion or parenchymal hemorrhage. Ventricles/extra-axial spaces: No hydrocephalus. No extra-axial fluid collection. Extracranial structures: Arterial flow voids in the skull base are preserved. Moderate mucosal thickening of the right maxillary sinus. Bilateral mastoid air cells are clear. MR/MR head/brain wo con IMPRESSION: No acute intracranial abnormality. Electronically signed by: John Vance MD 08/10/2025 03:41 PM EST
--- NOTE | ~2025-08-10 | CT_ITS ---
EXAMINATION: CTA NECK WITH CONTRAST (STROKE) CTA BRAIN WITH CONTRAST (STROKE) CLINICAL INFORMATION: Suspect acute stroke. Assess for major vessel occlusion. Please call report. COMPARISON: None available. TECHNIQUE: CTA of the head and neck was performed in the axial plane from the mediastinum to the skull vertex using 70 mL Omnipaque 350 intravenous contrast. Additional reformatted multiplanar images including maximum intensity projection MIP images are generated on the CT workstation. This CT examination was performed using dose optimization techniques as appropriate, variously including the following: *Automated exposure control *Adjustment of mA and/or kV according to patient size (this includes techniques or standardized protocols for targeted exams where dose is matched to indication/reason for exam; i.e. extremities or head) *Use of iterative reconstruction technique FINDINGS: The degree of stenosis determined by criteria similar to NASCET. Brain: There is no enhancing lesion, mass, edema or midline shift. There is no calvarial bony abnormality seen. The scalp soft tissues are normal. Mild mucoperiosteal thickening right maxillary sinus is noted. Rest of the paranasal sinuses and mastoid sinuses are clear. Chest and neck CTA: The thoracic aorta is of normal caliber with normal three-vessel branching of the aortic arch. There is mild ectasia of the right brachiocephalic artery. Origins of bilateral common carotid artery, left subclavian and right brachiocephalic artery are widely patent. There is no evidence of carotid artery aneurysm or dissection. There is normal carotid bulb bifurcation into internal and external carotid arteries without any atherosclerotic plaque or narrowing. Both internal carotid arteries throughout the neck extended skull base are widely patent. Both external carotid arteries are widely patent as well. There is codominant and bilateral jugular veins are patent. Chest and neck non-CTA: Visualized bilateral thyroid, submandibular and parotid glands are symmetric and normal. The pharyngeal airway is widely patent no abnormal sized neck lymph nodes are enhancing mass visualized. There is mild ventral spondylosis C3 4-5, C5-6 disc levels. No aggressive lytic or sclerotic process seen. The maxillofacial bones and the soft tissues are normal. The lungs are patent as are expanded and clear. The superior mediastinum is unremarkable. Brain CTA: Petrous, cavernous and supraclinoid ICA segments of bilateral carotid arteries are widely patent. No aneurysm or dissection seen. There is normal bifurcation of ICA into anterior middle cerebral arteries are widely widely patent. Bilateral anterior cerebral arteries are patent. There is normal arterial and capillary distribution visualized throughout the cerebral hemispheres. No enhancing mass seen. Bilateral internal cerebral veins, straight sinus, superior sagittal sinuses, bilateral transverse sinuses and the sigmoid sinuses are patent.. Both vertebral arteries are patent with a dominant right vertebral artery noted the left vertebral artery terminates in PICA the right vertebral artery continues as a small caliber basilar artery. CT/CT angio head neck STROKE IMPRESSION: Unremarkable CTA neck and brain exam. Dominant right vertebral artery with a very small caliber basilar artery noted. No enhancing neck or brain mass seen. No paucity of circulation in the intracranial brain parenchyma. This critical test result is communicated to: Dr. René Ramos in ER at 1:22 PM. Electronically signed by: Donaldo Corbin MD 08/10/2025 01:24 PM [facility]
--- NOTE | ~2025-08-10 | CT_ITS ---
EXAMINATION: CT HEAD WITHOUT IV CONTRAST STROKE HISTORY: Stroke Protocol. TECHNIQUE: Unenhanced helical CT of the head was performed per standard departmental protocol. Coronal and sagittal reformats of the head were also evaluated. One or more of the following techniques was used for dose reduction: Automated exposure control, adjustment of the mA and/or kV according to patient size, use of iterative reconstruction technique. DLP: 585 mGy-cm COMPARISON: There are no prior studies available for comparison. FINDINGS: BRAIN: The brain parenchyma is unremarkable. There is normal luis/white differentiation. The ventricular system is normal in size and configuration. There is no mass effect or midline shift. No intra- or extra-axial fluid collections are identified. SINUSES: The visualized paranasal sinuses are clear. The mastoid air cells and middle ear cavities are well pneumatized. ORBITS: The visualized orbits are unremarkable. BONES/SOFT TISSUES: The extracranial soft tissues are unremarkable. The calvarium is intact. No suspicious lytic or sclerotic lesions. CT/CT head for STROKE IMPRESSION: Unremarkable unenhanced head CT. Findings were discussed with Dr. Ramos the emergency room on 08/10/2025 at 12:58 PM Electronically signed by: Spenser Hayden MD 08/10/2025 12:57 PM [facility]
[2025-08-10 12:36] VITALS: BP 165/83; PULSE 77; RESP 18; TEMP 36.8; O2SAT 100; BMI 33.7
--- NOTE | 2025-08-10 12:37 | ED.GENADULT ---
HPI - General Adult General Chief complaint: Neuro Symptoms/Deficit Stated complaint: pain back of head, mouth numbness Time Seen by Provider: 08/10/25 12:51 Source: patient, old records reviewed and full time staff interpreter Mode of arrival: ambulatory Limitations: no limitations History of Present Illness ED Provider: DR. Ramos HPI narrative: 44-year-old female came in for evaluation of 1 day of left facial droop last known well was 22:00 last night woke up with left facial droop, no slurred speech, otherwise no weakness or numbness, patient has been complaining of pain over the left mastoid area, no fever, no chills, no headache, no blurry vision, no visual change. No recent sickness, no exposure to sick contacts. Related Data Home Medications ?Medication ?Instructions ?Recorded ?Confirmed metformin 500 mg tablet 500 mg PO BID 02/16/21 12/23/24 amitriptyline 10 mg tablet 10 mg PO BEDTIME 08/27/22 12/23/24 atorvastatin 40 mg tablet 40 mg PO BEDTIME 08/27/22 12/23/24 blood sugar diagnostic (FreeStyle #10 ea 08/27/22 12/23/24 Lite Strips) cholecalciferol (vitamin D3) 50 50 mcg PO QPM 08/27/22 12/23/24 mcg (2,000 unit) capsule (Vitamin D3) ferrous sulfate 325 mg (65 mg 325 mg PO QAM 08/27/22 12/23/24 iron) tablet (FeroSul) fluticasone propionate 110 2 puff inhalation BID 08/27/22 12/23/24 mcg/actuation HFA aerosol inhaler (Flovent HFA) hydroxyzine HCl 50 mg tablet 50 mg PO 08/27/22 12/23/24 lidocaine 5 % topical patch 0 patch topical 08/27/22 12/23/24 (Lidoderm) venlafaxine 75 mg capsule,extended 75 mg PO QAM 08/27/22 12/23/24 release 24 hr hydrochlorothiazide 25 mg tablet 25 mg PO QAM 10/23/22 12/23/24 alcohol swabs (Alcohol Prep Pads) 0 pad topical BID 01/28/23 12/23/24 acetaminophen 500 mg tablet 1,000 mg PO Q8H PRN pain 05/04/24 12/23/24 Previous Rx's ?Medication ?Instructions ?Recorded baclofen 10 mg tablet 10 mg PO BID #60 tabs 08/01/20 omeprazole 40 mg capsule,delayed 40 mg PO QAM #30 caps 03/06/21 release etanercept 50 mg/mL (1 mL) 50 mg subcut QWEEK #4 mL 04/27/25 subcutaneous pen injector (Enbrel SureClick) folic acid 1 mg tablet 1 mg PO QAM #90 tabs 04/27/25 hydroxychloroquine 200 mg tablet 200 mg PO QAM #90 tabs 04/27/25 methotrexate sodium 2.5 mg tablet 10 mg (4 x 2.5 mg) PO QWEEK #56 04/27/25 tabs carboxymethylcellulose sodium 1 % 1 drp ophthalmic (eye) BID #15 mL 08/10/25 eye drops (Artificial Tears (carboxymethylcellulose)) prednisone 20 mg tablet 20 mg PO BID #10 tabs 08/10/25 valacyclovir 1 gram tablet 1,000 mg PO TID #20 tabs 08/10/25 (Valtrex) Allergies Allergy/AdvReac Type Severity Reaction Status Date / Time gabapentin AdvReac Intermediate Gastrointestinal Verified 08/10/25 12:39 Upset Review of Systems Review of Systems: All other systems are reviewed and are negative Constitutional: Reports as per HPI and Reports no additional constitutional complaints Eyes: Reports as per HPI and Reports no additional eye complaints Reports system reviewed and no additional complaints, except as documented Cardiovascular: Reports as per HPI and Reports no additional cardiovascular complaints Respiratory: Reports as per HPI and Reports no additional respiratory complaints Gastrointestinal: Reports as per HPI and Reports no additional gastrointestinal complaints Genitourinary: Reports no additional female genitourinary complaints Musculoskeletal: Reports no additional musculoskeletal complaints Skin/Breast: Reports system reviewed and no additional complaints, except as docu Psychiatric: Reports no additional psychiatric complaints Endocrine: Reports no additional endocrine complaints Hematologic/Lymphatic: Reports no additional hematologic/lymphatic complaints Allergic/Immunologic: Reports no additional allergic/immunologic complaints Reports system reviewed and no additional complaints, except as documented and Reports Abnormal speech present [facility] Past Medical History Medical History Screening for osteoporosis PERRY positive Seronegative rheumatoid arthritis Surgical History Hx of tubal ligation Family History Family History Father Diabetes Rheumatoid arthritis CVD (cardiovascular disease) Mother Diabetes Pulmonary embolism Social History Social History Household Members: Other Household Members Other:: daughter Housing: Apartment Alcohol intake: current Patient Tobacco Use Status: Never used Tobacco Smoked in Last 30 Days: No Use of substances other than those prescribed or required for medical reasons: No Advance Directives: No Advance Directives Information Provided: Yes Patient : No Current occupational status: disabled 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 Blood pressure elevated. Heart rate normal. Respiratory rate normal. Temperature normal. Oxygen saturation normal. Appearance: Alert. Oriented X3. No acute distress. Head: Normal external exam. Normocephalic. Atraumatic. No Moreno signs noted. No raccoon eyes noted Eyes: PERRLA. EOMI. Conjunctiva and sclera normal. Eyelids normal. ENT: TM's Normal. Pharynx normal. Uvula midline. Moist mucous membranes. No trismus noted. No drooling noted. No muffled voice noted. Neck: Normal inspection. Neck supple. FROM. No adenopathy. Thyroid Normal. No meningeal signs. No neck mass noted. CVS: Normal heart rate and rhythm. Heart sound normal. No murmurs noted. Pulses normal throughout. Respiratory: No respiratory distress. Painless inspiration. Breath sounds normal. No wheezes/rales/rhonchi noted. Chest nontender. No accessory muscle usage noted or decreased air movement noted. Abdomen: Soft and nontender. Bowel sounds normal in all 4 quadrants. No distention noted. No organomegaly noted. No visible injury noted. Back: No CVA tenderness. Full range of motion noted. Skin: Skin warm and dry. Normal skin color. Normal skin turgor. No rashes/lesions/lacerations noted. Extremities: No lower extremity edema. Extremities exhibit normal range of motion. Extremities nontender. Neuro: Mental status: Normal attention, orientation, memory, and affect. Cranial nerves: Pupils are equal, round and reactive to light, EOMI, visual anthony are fall, Facial asymmetry, left facial droop. Motor examination normal muscle tone, strength to 4 extremities. DTR are +2, planter's are flexor. Sensory exam; normal coordination, no ataxia, gait stable. Cerebellar exam: [id number] and [id number] is normal. Extrapyramidal system: No tremors, no rigidity with normal facial expressions. Pronator drift not present NIH Stroke Scale Time: 14:26 Level of Consciousness: Alert Level of Consciousness Questions: Answers both questions correctly Level of Consciousness Commands: Performs both tasks correctly Best Gaze: Normal Visual: No visual loss Facial Palsy: Partial paralysis Motor Arm (Right): No drift Motor Arm (Left): No drift Motor Leg (Right): No drift Motor Leg (Left): No drift Limb Ataxia: Absent Sensory: Normal Best Language: No aphasia Dysarthia: Normal Extinction and Inattention: No abnormality Score: 2 Course Course Course Narrative: This is a rapid medical exam performed by Pamela Johnson NP: Additional HPI, ROS, PE not included below will be deferred to primary provider. Patient is a 44y/o F presenting with left sided facial droop since this am. Also complaining of left occipital pain and neck pain. Last known well was 10pm last night. Patient activated as stroke alert and brought directly back to CT. Dr. Ramos aware. 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 Time: 15:25 Medications Administered Discontinued Medications Generic Name Dose Route Start Last Admin Trade Name Freq PRN Reason Stop Dose Admin Iohexol 100 ml 08/10/25 13:02 08/10/25 13:02 Iohexol 350 Mg/Ml 100 Ml Infus..Btl IV 08/10/25 13:03 70 ml ONCE ONE Administration Medical Decision Making Differential Diagnosis Differential Diagnoses: The differential diagnosis associated with the presentation includes ( Dominguez's palsy, hemorrhagic stroke, ischemic stroke, electrolyte derangement, severe anemia,) Admission/Observation Consideration of admission/observation: Escalation of care including admission/observation considered Lab Data MDM Lab Attestation statement: I reviewed the patient's lab results. 08/10/25 13:27 08/10/25 13:27 Labs: Lab Results 08/10/25 08/10/25 Range/Units 13:05 13:27 WBC 9.9 (4.8-10.8) X10*3/uL RBC 5.05 (4.20-5.50) X10*6/uL Hgb 11.4 L (12.0-16.0) g/dl Hct 37.0 (37.0-47.0) % MCV 73.3 L (80.0-98.0) fL MCH 22.6 L (27.0-33.0) pg MCHC 30.8 L (31.0-35.0) g/dl RDW 17.5 H (11.0-16.0) % Plt Count 298 D (160-400) X10*3/uL MPV 9.7 (9.4-12.3) fL Immature Gran % (Auto) 0.3 (0.0-0.4) % Neut % (Auto) 54.0 (45-73) % Lymph % (Auto) 30.1 (20-40) % Edmunds % (Auto) 7.4 (2-11) % Eos % (Auto) 7.7 H (0-4) % Baso % (Auto) 0.5 (0-2) % Lymph # (Auto) 3.0 (1.2-4.9) X10*3/uL Edmunds # (Auto) 0.7 (0.1-1.2) X10*3/uL Eos # (Auto) 0.8 H (0.0-0.4) X10*3/uL Baso # (Auto) 0.1 (0.0-0.2) X10*3/uL Abs Immat Gran (auto) 0.03 (0.00-0.03) X10*3/uL Absolute Neuts (auto) 5.4 (2.0-8.3) x10*3/uL Absolute Nucleated RBC 0.000 (0.0-0.012) X10*3/uL Nucleated RBC % (auto) 0.0 (0.0-0.2) /100WBC PT 14.3 H (11.2-13.5) SEC Whole Blood PT 12.6 (11.1-13.5) sec INR 1.2 H (0.9-1.1) Whole Blood INR 1.0 (0.9-1.1) APTT 30.5 (26.7-34.1) SEC Sodium 136 (135-145) mmol/L Potassium 4.1 (3.3-5.1) mmol/L Chloride 105 (96-108) mmol/L Carbon Dioxide 23 (22-29) mmol/L Anion Gap 12 (12-20) BUN 10 (9-16) mg/dL Creatinine 0.83 (0.5-1.4) mg/dL Estim Creat Clear Calc 75.1 Estimated GFR > 60 POC Glucose 88 (60-115) mg/dL Random Glucose 94 (60-115) mg/dL Calcium 9.0 (8.4-10.2) mg/dL Troponin I High Sens < 2.7 (<3.5-17.0) ng/L Triglycerides 104 (<150) mg/dL Cholesterol 139 (<200) mg/dL LDL Cholesterol, Calc 85 (<100) mg/dL HDL Cholesterol 34 L (>40) mg/dL Independent Interpretation I performed an independent interpretation of an: CT Scan ( no acute intracranial pathology.) and MRI ( No acute intracranial pathology.) Radiology Impression Discussion of test interpretation with radiology: I have reviewed the radiologist's reading. Discharge Plan Discharge Clinical Impression: Left-sided Dominguez's palsy Patient Disposition: Home, Self-Care Instructions: Dominguez Palsy (ED) Prescriptions: New valacyclovir [Valtrex] 1 gram tablet 1,000 mg PO TID Qty: 20 0RF prednisone 20 mg tablet 20 mg PO BID Qty: 10 0RF Artificial Tears (cmc) 1 % drops 1 drp ophthalmic (eye) BID Qty: 15 0RF No Action baclofen 10 mg tablet 10 mg PO BID Qty: 60 4RF omeprazole 40 mg capsule,delayed release(DR/EC) 40 mg PO QAM Qty: 30 5RF metformin 500 mg tablet 500 mg PO BID venlafaxine 75 mg capsule,extended release 24hr 75 mg PO QAM cholecalciferol (vitamin D3) [Vitamin D3] 50 mcg (2,000 unit) capsule 50 mcg PO QPM fluticasone propionate [Flovent HFA] 110 mcg/actuation HFA aerosol inhaler 2 puff inhalation BID lidocaine [Lidoderm] 5 % adhesive patch,medicated 0 patch topical ferrous sulfate [FeroSul] 325 mg (65 mg iron) tablet 325 mg PO QAM amitriptyline 10 mg tablet 10 mg PO BEDTIME hydroxyzine HCl 50 mg tablet 50 mg PO atorvastatin 40 mg tablet 40 mg PO BEDTIME (DME) FreeStyle Lite Strips Strip See Rx Instructions .ROUTE BID Qty: 10 Rx Instructions: As directed hydrochlorothiazide 25 mg tablet 25 mg PO QAM alcohol swabs [Alcohol Prep Pads] Pads, Medicated 0 pad topical BID Enbrel SureClick 50 mg/mL (1 mL) pen injector 50 mg subcut QWEEK Qty: 4 5RF folic acid 1 mg tablet 1 mg PO QAM Qty: 90 1RF hydroxychloroquine 200 mg tablet 200 mg PO QAM Qty: 90 1RF methotrexate sodium 2.5 mg tablet 10 mg PO QWEEK Qty: 56 1RF acetaminophen 500 mg tablet 1,000 mg PO Q8H PRN (Reason: pain) Referrals: Ally Rodriguez MD [Primary Care Provider, Internal Medicine] Hemant Danielle MD [Physician, Neurology] Print Language: Kittitian
--- NOTE | 2025-08-10 12:39 | ECG_ITS ---
Test Reason : stroke alert Blood Pressure : */* mmHG Vent. Rate : 82 BPM Atrial Rate : 82 BPM P-R Int : 138 ms QRS Dur : 88 ms QT Int : 376 ms P-R-T Axes : 21 45 24 degrees QTcB Int : 439 ms Normal sinus rhythm Normal ECG No previous ECGs available Referred By: Kenia Johnson Electronically Signed By: NICHOLE SCHOFIELD MD
[2025-08-10 13:00] VITALS: BP 155/77; PULSE 99; O2SAT 98
[2025-08-10] MEDS: iohexoL 350 MG/ML 100 ML INFUS..BTL IV (13:02)
[2025-08-10 13:14] LABS: Prothrombin Time Whole Bld POC 12.6 sec (11.1-13.5); ~PT, ~INR - Anti Coag Clinic 1.0 (0.9-1.1)
[2025-08-10 13:16] LABS: Glucose, Whole Blood 88 mg/dL (60-115)
[2025-08-10 13:32] LABS: Hematocrit 37.0 % (37.0-47.0); Hemoglobin 11.4 g/dl (12.0-16.0); Imm Gran Abs Auto 0.03 X10*3/uL (0.00-0.03); Imm Gran Pct Auto 0.3 % (0.0-0.4); Lymphocytes Absolute Auto 3.0 X10*3/uL (1.2-4.9); Mean Corpuscular HGB Conc 30.8 g/dl (31.0-35.0); Mean Corpuscular Hemoglobin 22.6 pg (27.0-33.0); Mean Corpuscular Volume 73.3 fL (80.0-98.0); NRBC Abs Auto 0.000 X10*3/uL (0.0-0.012); NRBC Pct Auto 0.0 /100WBC (0.0-0.2); Platelet Count 298 X10*3/uL (160-400); Red Blood Count 5.05 X10*6/uL (4.20-5.50); White Blood Count 9.9 X10*3/uL (4.8-10.8)
--- OUTSIDE RECORDS SUMMARY | 2025-08-10 13:32 | XMS_ITS | Clinical Summary ---
Author Organization [employer] Address [address] [facility] [address] [place] [address] Care Team Providers Care Talent Scout Name Role Phone Ally Rodriguez MD Primary Care Provide r Allergies Active Allergy Reactions Criticality Noted Date Comments Cat Dander 02/05/2021 Dog Epithelium (Canis Lupus Familiaris) 02/05/2021 Medications folic acid (Folvite) 1 MG tabletIndicatio ns:Rheumatoid arthritis, involving unspecified site, unspecified whether rheumatoid [...] oral route every week 10/29/19 20 Active hydroxychloroqu ine (Plaquenil) 200 MG tabletIndicatio ns:Seropositive rheumatoid arthritis (CMS/HCC) (HCC) Take 1 tablet (200 mg) by mouth in the morning. 30 tablet 3 09/10/19 23 Active Alcohol Swabs (Alcohol Prep) 70 % padsIndications :Type 2 diabetes mellitus without complication, without long-term current use of insulin ([facility]) USE DIRECTED TWICE DAILY 100 each 5 03/02/20 24 Active FREESTYLE LITE test stripIndication s:Type 2 diabetes mellitus without complication, without long-term current use of insulin ([facility]) TEST BLOOD SUGAR TWICE DAILY 100 strip 5 03/02/20 24 Active lidocaine (Lidoderm) 5 % patchIndication s:Chronic bilateral low back pain without sciatica Apply 1 patch topically Once per day. 30 patch 2 04/01/20 24 Active Acetaminophen Extra Strength 500 MG tabletIndicatio ns:Chronic bilateral low back pain without sciatica TAKE 2 TABLETS BY MOUTH EVERY 8 HOURS NEEDED FOR PAIN 40 tablet 05/12/20 24 Active lidocaine (Lidoderm) 5 % patchIndication s:Chronic bilateral low back pain without sciatica Apply 1 patch topically Once per day. Remove & discard patch within 12 hours or as directed by MD. 30 patch 3 12/03/19 25 Active cyclobenzaprine (Flexeril) 10 MG tabletIndicatio ns:Chronic bilateral low back pain without sciatica Take 0.5 tablets (5 mg) by mouth 3 times daily. 30 tablet 2 12/03/19 25 Active budesonide-form oterol (Symbicort) 160-4.5 MCG/ACT inhalerIndicati ons:Moderate persistent asthma, unspecified whether complicated Inhale 2 puffs in the morning and at bedtime. Rinse mouth with water after use to reduce aftertaste and incidence of candidiasis. Do not swallow. 1 each 5 11:20 AM EST 02/08/20 25 2025 Active albuterol (2.5 MG/3ML) 0.083% nebulizer solutionIndicat ions:Moderate persistent asthma, unspecified whether complicated Take 3 mL by nebulization every 6 (six) hours if needed for wheezing. 75 mL 1 02/08/20 25 Active lisinopril 5 MG tabletIndicatio ns:Essential hypertension Take 1 tablet (5 mg) by mouth Once per day. 30 tablet 11 02/08/20 25 2025 Active atorvastatin (Lipitor) 40 MG tablet TAKE 1 TABLET BY MOUTH AT BEDTIME 90 tablet 1 02/17/20 25 Active hydroCHLOROthia zide (HYDRODiuril) 25 MG tabletIndicatio ns:Essential hypertension TAKE 1 TABLET BY MOUTH EVERY MORNING 90 tablet 3 5 11:20 AM EST 03/18/20 25 Active Ferrous Sulfate (iron) 325 (65 Fe) MG tabletIndicatio ns:Iron deficiency anemia, unspecified iron deficiency anemia type TAKE 1 TABLET BY MOUTH AT BEDTIME 90 tablet 3 5 11:20 AM EST 03/18/20 25 Active metFORMIN (Glucophage) 500 MG tabletIndicatio ns:Type 2 diabetes mellitus without complication, without long-term current use of insulin (HCC) TAKE 1 TABLET BY MOUTH TWICE DAILY IN THE MORNING AND IN THE EVENING WITH FOOD 180 tablet 3 5 11:20 AM EST 03/18/20 25 Active D3 Super Strength 50 MCG (2000 UT) capsuleIndicati ons:Vitamin D deficiency TAKE 1 CAPSULE BY MOUTH AT BEDTIME 90 capsule 3 03/18/20 25 Active amitriptyline (Elavil) 10 MG tabletIndicatio ns:Chronic low back pain, unspecified back pain laterality, unspecified whether sciatica present TAKE 1 TABLET BY MOUTH AT BEDTIME 30 tablet 5 05/02/20 25 Active Tirzepatide (Mounjaro) 2.5 MG/0.5ML solution auto-injectorIn dications:Type 2 diabetes mellitus without complication, without long-term current use of insulin (HCC) Inject 2.5 mg under the skin 1 (one) time per week. 2 mL 2 5 10:19 AM EST 06/22/20 25 Active hydrOXYzine pamoate (Vistaril) 50 MG capsuleIndicati ons:Anxiety Take 1 capsule (50 mg) by mouth every 8 (eight) hours if needed for anxiety for up to 10 days. 30 capsule 06/22/20 25 Active hydrOXYzine HCl (Atarax) 50 MG tabletIndicatio ns:Anxiety TAKE 1 TABLET BY MOUTH TWICE DAILY IN THE MORNING AND IN THE EVENING 60 tablet 2 08/08/20 25 Active hydrOXYzine HCl (Atarax) 50 MG tabletIndicatio ns:Anxiety TAKE 1 TABLET BY MOUTH TWICE DAILY IN THE MORNING AND IN THE EVENING 60 tablet 2 05/02/20 25 2024 Discontinued Active Problems Problem Noted Date Diagnosed Date [...] be contacted with results Rheumatoid arthritis of [facility] sites with negative rheumatoid factor ([facility]) 02/07/2025 Assessment & Plan (02/07/2025 4:12 PM EDT): Continue to follow-up with rheumatology Class 2 severe obesity due t o excess calories with serious comorbidity and body mass index (BMI) of 36.0 to 36.9 in adult 12/02/2024 Assessment & Plan (12/03/2024 3:22 PM EDT): Extensive counseling about healthy diet and exercise on today, 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 Other fatigue 04/01/2024 Assessment & Plan (04/16/2024 [...] albuterol solution Mood disorder 07/24/2022 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[facility]/HCC) 07/24/2022 Chronic bilateral low back pain without [...] 02/07/2025 Acute low back pain 07/24/2022 02/08/20 Dry cough 07/24/2022 02/07/2025 Rheumatoid arthritis involvi ng multiple sites with positive rheumatoid factor ([facility]/HCC) 07/24/2022 02/07/2025 Assessment & Plan (02/12/2023 10:58 AM EDT): Continue to follow with rheumatology Seropositive rheumatoid arthritis ([facility]) 07/24/2022 02/07/2025 Encounters Date Type Department Care Team Description 08/10/2025 Orders Only [facility] External Provider, [facility] 08/07/2025 Refill [facility] [address] [place] [address] Ally Rodriguez MD Anxiety 07/08/2025 Telephone [facility] [address] [place] [phone] Ally Rodriguez MD feb recalls 06/22/2025 10:00 AM EST Telemedicine [facility] [address] [place] [address] Ally Rodriguez MD Dietary counseling; Exercise counseling; UTI symptoms; Type 2 diabetes mellitus without complication, without long-term current use of insulin ([facility]); Anxiety 06/22/2025 Travel 06/13/2025 Travel 06/06/2025 10:45 AM EDT Office Visit [facility] [address] [place] [address] Brittny Lomas, OD Presbyopia of both eyes (Primary Dx) 05/13/2025 9:00 AM EDT Office Visit [facility] [address] [place] [address] Jose Lomasn, OD Diabetes type 2, no ocular involvement ([facility]) (Primary Dx); Rheumatoid arthritis, involving unspecified site, unspecified whether rheumatoid factor present ([facility]); Encounter for long-term (current) use of high-risk medication; Dry eyes; Presbyopia of both eyes 05/13/2025 Travel from Last 3 Months Immunizations Immunization [...] your housing situation today? I have esau tma 12/02/[address] you li [...] Description 09/12/2025 11:30 AM EST Office Visit [facility] [address] [place] [address] Abebe, Brittny, OD [address] [place] [address] 09/26/2025 9:00 AM EST Office Visit [facility] [address] [place] [address] Ally Rodriguez MD [address] [place] [address] Health Maintenance Due Date Last Done Comments CT Colonography 1978 Colonoscopy 1978 Colorectal Cancer Screening 1978 FIT DNA/Cologuard 1978 FIT 1978 FOBT 1978 Sigmoidoscopy 1978 Diabetes: Foot Exam 1988 Family Planning (PISQ) 1993 Pneumococcal Vaccine: Pediatrics (0 to 5 Years) and At-Risk Patients (6 to 49) Years (2 of 2 - PPSV23, PCV20, or PCV21) 06/27/2020 05/02/2020 Dental Oral Exam 09/07/2021 03/06/2021 Dental Prophylaxis 09/16/2021 03/15/2021 Dental X-Ray: Bitewings 03/07/2022 03/06/2021, 02/16 Mammogram 02/25/2024 02/24/2023, 02/24/2023 Diabetes: Urine Protein Screening 07/02/2024 07/02/2023, 03/25/2022, 03/25/2022, Additional history exists Lipid Panel 04/01/2025 04/01/2024, 06/18, 06/26/2022, Additional history exists COVID-19 Vaccine ( season) 2025 07/07/2024, 07/04/2022, 07/24/2021, Additional history exists Influenza Vaccine (#1) 2025 , 07/02/2023, 06/24/2022, Additional history exists Diabetes: Hemoglobin A1C 06/03/2025 025, 04/01/2024, 09/22/2023, Additional history exists Alcohol/Substance Use Screening 12/02/2025 12/02/2024 SDOH Screening 12/02/2025 12/02/2024 Disability Screening 02/07/2026 02/07/2025 Tobacco Screening 05/20/2026 05/20/2025 Depression Screening 06/22/2026 06/22/2025, 06/22/20 25 Dental X-Ray: Full Mouth 11/04/2026 024, 03/06/2021, 03/06/2021 Eye Exam 05/13/2027 05/13/2025, 04/19, 05/13/2025, Additional history exists DTaP/Tdap/Td Vaccines (2 - Td or Tdap) 06/26/2028 06/26/2018 Zoster Vaccines (1 of 2) 2028 Cervical Cancer Screening 03/23/2030 HPV/Cotest 03/23/2030 03/23/2025 Pap Smear 03/23/2030 03/23/2025 RSV Patients and Patients Aged 60 years or older (1 - 1-dose 75+ series) 2053 HIV Screening Completed 04/01/2024 Hepatitis B Vaccines Completed 01/07/2025, 08/06/2024, 07/07/2024 [...] on patient's age to complete this topic Goals Goal Patient Goal Type Associated Problems Recent Progress Patient-Stated? Author Help patients manage their type 2 diabetes Care Plan Help patients manage their type 2 diabetes No Jade Franco MA Weekly blood pressure task Care Plan Weekly blood pressure task No Jade Franco MA Help patients manage their type 2 diabetes Care Plan Help patients manage their type 2 diabetes No Jade Franco MA Patient has chronic kidney disease Care Plan Patient has chronic kidney disease No Jade Franco MA Weekly blood pressure task Care Plan Weekly blood pressure task No Jade Franco MA Patient has chronic kidney disease Care Plan Patient has chronic kidney disease No Jade Franco MA Procedures Procedure Name Priority Date/Time Associated Diagnosis Comments GLUCOSE, WHOLE BLOOD Routine 08/10/2025 1:05 PM EST PROTHROMBIN TIME WHOLE BLD POC Routine 08/10/2025 1:05 PM EST ~PT, ~INR - ANTI COAG CLINIC Routine 08/10/2025 1:05 PM EST CTA HEAD STROKE W AND WO CONTRAST Routine 08/10/2025 12:[address] HEAD STROKE WO CONTRAST Routine 08/10/2025 12:42 PM EST SED RATE BY MODIFIED WESTERGREN Routine 06/23/2025 10:14 AM EST C-REACTIVE PROTEIN Routine 06/23/2025 10 :14 AM EST COMPREHENSIVE METABOLIC PANEL Routine 06/23/2025 10:14 AM EST URINALYSIS, COMPLETE, WITH REFLEX TO CULTURE Routine 06/23/2025 10:14 AM EST CBC WITH AUTO DIFFERENTIAL Routine 06/23/2025 10:14 AM EST CULTURE, URINE, ROUTINE Routine 06/23/2025 10:14 AM EST UTI symptoms OCT, RETINA - OU - BOTH EYES Routine 05/13/2025 9:00 AM EDT Rheumatoid arthritis, involving unspecified site, unspecified whether rheumatoid factor present (CMS/HCC) (HCC) Encounter for long-term (current) use of high-risk medication HEPATITIS PANEL, GENERAL Routine 04/27/2025 11:07 AM EDT HPV DNA, LOW/HIGH RISK Routine 03/23/2025 11:14 AM EDT PAP SMEAR Routine 03/23/2025 11:14 AM EDT Encounter for Papanicolaou smear of cervix POCT GLYCATED HEMOGLOBIN, TOTAL Routine 12/02/2024 3:10 PM EDT Type 2 diabetes mellitus without complication, without long-term current use of insulin (CMS/HCC) HIV 1/2 ANTIGEN/ANTIBODY, FOURTH GENERATION W/RFL Routine [...] Recently Relevant to Health Maintenance Results * Glucose, Whole Blood (08/10/2025 1:05 PM EST) Glucose, Whole Blood 88 60 - 115 mg/dL [facility] Comment:METER #: [id number] 08/10/2025 1:05 PM EST 08/10/2025 1:16 PM EST us Generic External Data Provider LAB BLOOD ORDERAB LES Final Result Performing Organization Address [facility] Co de Phone Number [facility] [address] [place] [phone] * PROTHROMBIN TIME WHOLE BLD POC (08/10/2025 1:05 PM EST) Protime 12.6 11.1 - 13.5 sec [facility] 08/10/2025 1:05 PM EST 08/10/2025 1:14 PM EST us Generic External Data Provider LAB BLOOD ORDERAB LES Final Result Performing Organization Address [facility] Co de Phone Number [facility] [address] [place] [phone] * ~PT, ~INR - ANTI COAG CLINIC (08/10/2025 1:05 PM EST) Prothrombin Time INR 1.0 0.9 - 1.1 [facility] Comment:METER #: [id number] TERNATIONAL NORMALIZED RATIO (INR) REFERENCE RANGES Reference RangeFor patients not on anticoagulant therapy: 0.9 - 1.1INR ranges for oral anticoagulanttherapy:For prevention and treatment of venous thrombosis and pulmonary embolism: 2.0 - 3.0For acute myocardial infarction with aspirin therapy: 2.0 - 3.0For acute myocardial infarction without aspirin therapy: 3.0 - 4.0For patients with mechanical prosthetic heart valves: 2.5 - 3.5 08/10/2025 1:05 PM EST 08/10/2025 1:14 PM EST Generic External Data Provider LAB BLOOD ORDERAB LES Final Result Performing Organization Address City/State/[facility] Co de Phone Number [facility] [address] [place] [phone] * CTA Head Stroke w/ and w/o Contrast (08/10/2025 12:49 PM EST) Anatomical Region Laterality Modality Computed Tomogra phy 08/10/2025 12:4 9 PM EST Narrative 08/10/2025 1:27 PM EST [address] [address] [address] Scan Report Signed Patient: Tania Merida MR#: [id number] : 1980 Acct:[id number] Age/Sex: 44 / F ADM Date: 08/10/25 Loc: HO.ED Attending Dr: Ordering Physician: Kenia Johnson NP Date of Service: 08/10/25 Procedure(s): CT angio head neck STROKE Accession Number(s): [id number] cc: Ally Rodriguez MD; Kenia Johnson NP Report Number: [id number]: Total DLP = 621.00 mGy-cm Reason for Exam: Stroke Protocol EXAMINATION: CTA NECK WITH CONTRAST (STROKE) CTA BRAIN WITH CONTRAST (STROKE) CLINICAL INFORMATION: Suspect acute stroke. Assess for major vessel occlusion. Please call report. COMPARISON: None available. TECHNIQUE: CTA of the head and neck was performed in the axial plane from the mediastinum to the skull vertex using 70 mL Omnipaque 350 intravenous contrast. Additional reformatted multiplanar images including maximum intensity projection MIP images are generated on the CT workstation. This CT examination was performed using dose optimization techniques as appropriate, variously including the following: *Automated exposure control *Adjustment of mA and/or kV according to patient size (this includes techniques or standardized protocols for targeted exams where dose is matched to indication/reason for exam; i.e. extremities or head) *Use of iterative reconstruction technique FINDINGS: The degree of stenosis determined by criteria similar to NASCET. Brain: There is no enhancing lesion, mass, edema or midline shift. There is no calvarial bony abnormality seen. The scalp soft tissues are normal. Mild mucoperiosteal thickening right maxillary sinus is noted. Rest of the paranasal sinuses and mastoid sinuses are clear. Chest and neck CTA: The thoracic aorta is of normal caliber with normal three-vessel branching of the aortic arch. There is mild ectasia of the right brachiocephalic artery. Origins of bilateral common carotid artery, left subclavian and right brachiocephalic artery are widely patent. There is no evidence of carotid artery aneurysm or dissection. There is normal carotid bulb bifurcation into internal and external carotid arteries without any atherosclerotic plaque or narrowing. Both internal carotid arteries throughout the neck extended skull base are widely patent. Both external carotid arteries are widely patent as well. There is codominant and bilateral jugular veins are patent. Chest and neck non-CTA: Visualized bilateral thyroid, submandibular and parotid glands are symmetric and normal. The pharyngeal airway is widely patent no abnormal sized neck lymph nodes are enhancing mass visualized. There is mild ventral spondylosis C3 4-5, C5-6 disc levels. No aggressive lytic or sclerotic process seen. The maxillofacial bones and the soft tissues are normal. The lungs are patent as are expanded and clear. The superior mediastinum is unremarkable. Brain CTA: Petrous, cavernous and supraclinoid ICA segments of bilateral carotid arteries are widely patent. No aneurysm or dissection seen. There is normal bifurcation of ICA into anterior middle cerebral arteries are widely widely patent. Bilateral anterior cerebral arteries are patent. There is normal arterial and capillary distribution visualized throughout the cerebral hemispheres. No enhancing mass seen. Bilateral internal cerebral veins, straight sinus, superior sagittal sinuses, bilateral transverse sinuses and the sigmoid sinuses are patent.. Both vertebral arteries are patent with a dominant right vertebral artery noted the left vertebral artery terminates in PICA the right vertebral artery continues as a small caliber basilar artery. CT/CT angio head neck STROKE IMPRESSION: Unremarkable CTA neck and brain exam. Dominant right vertebral artery with a very small caliber basilar artery noted. No enhancing neck or brain mass seen. No paucity of circulation in the intracranial brain parenchyma. This critical test result is communicated to: Dr. René Ramos in ER at 1:22 PM. Electronically signed by: Donaldo Corbin MD 08/10/2025 01:24 PM [facility] Dictated By: Donaldo Corbin MD Signed By: <Electronically signed by Donaldo Corbin MD in OV> 08/10/25 1324 DD/ 1249 TD/TT: 08/10/25 1255 Flour Worker: [facility] Procedure Note Donotuseinterpreter, Image - 08/10/[address] [place] [address] [address] Scan Report Signed Patient: Celia Merida#: [id number] : 1980Acct:[id number] Age/Sex: 44 / FADM Date: 08/10/25 Loc: HO.ED Attending Dr: Ordering Physician: Kenia Johnson NP Date of Service: 08/10/25 Procedure(s): CT angio head neck STROKE Accession Number(s): [id number] cc: Ally Rodriguez MD; Kenia Johnson NP Report Number: [id number]: Total DLP = 621.00 mGy-cm Reason for Exam: Stroke Protocol EXAMINATION: CTA NECK WITH CONTRAST (STROKE) CTA BRAIN WITH CONTRAST (STROKE) CLINICAL INFORMATION: Suspect acute stroke. Assess for major vessel occlusion. Please call report. COMPARISON: None available. TECHNIQUE: CTA of the head and neck was performed in the axial plane from the mediastinum to the skull vertex using 70 mL Omnipaque 350 intravenous contrast. Additional reformatted multiplanar images including maximum intensity projection MIP images are generated on the CT workstation. This CT examination was performed using dose optimization techniques as appropriate, variously including the following: *Automated exposure control *Adjustment of mA and/or kV according to patient size (this includes techniques or standardized protocols for targeted exams where dose is matched to indication/reason for exam; i.e. extremities or head) *Use of iterative reconstruction technique FINDINGS: The degree of stenosis determined by criteria similar to NASCET. Brain: There is no enhancing lesion, mass, edema or midline shift. There is no calvarial bony abnormality seen. The scalp soft tissues are normal. Mild mucoperiosteal thickening right maxillary sinus is noted. Rest of the paranasal sinuses and mastoid sinuses are clear. Chest and neck CTA: The thoracic aorta is of normal caliber with normal three-vessel branching of the aortic arch. There is mild ectasia of the right brachiocephalic artery. Origins of bilateral common carotid artery, left subclavian and right brachiocephalic artery are widely patent. There is no evidence of carotid artery aneurysm or dissection. There is normal carotid bulb bifurcation into internal and external carotid arteries without any atherosclerotic plaque or narrowing. Both internal carotid arteries throughout the neck extended skull base are widely patent. Both external carotid arteries are widely patent as well. There is codominant and bilateral jugular veins are patent. Chest and neck non-CTA: Visualized bilateral thyroid, submandibular and parotid glands are symmetric and normal. The pharyngeal airway is widely patent no abnormal sized neck lymph nodes are enhancing mass visualized. There is mild ventral spondylosis C3 4-5, C5-6 disc levels. No aggressive lytic or sclerotic process seen. The maxillofacial bones and the soft tissues are normal. The lungs are patent as are expanded and clear. The superior mediastinum is unremarkable. Brain CTA: Petrous, cavernous and supraclinoid ICA segments of bilateral carotid arteries are widely patent. No aneurysm or dissection seen. There is normal bifurcation of ICA into anterior middle cerebral arteries are widely widely patent. Bilateral anterior cerebral arteries are patent. There is normal arterial and capillary distribution visualized throughout the cerebral hemispheres. No enhancing mass seen. Bilateral internal cerebral veins, straight sinus, superior sagittal sinuses, bilateral transverse sinuses and the sigmoid sinuses are patent.. Both vertebral arteries are patent with a dominant right vertebral artery noted the left vertebral artery terminates in PICA the right vertebral artery continues as a small caliber basilar artery. CT/CT angio head neck STROKE IMPRESSION: Unremarkable CTA neck and brain exam. Dominant right vertebral artery with a very small caliber basilar artery noted. No enhancing neck or brain mass seen. No paucity of circulation in the intracranial brain parenchyma. This critical test result is communicated to: Dr. René Ramos in ER at 1:22 PM. Electronically signed by: Donaldo Corbin MD 08/10/2025 01:24 PM EST RP Dictated By: Donaldo Corbin MD Signed By: <Electronically signed by Donaldo Corbin MD in OV> 08/10/25 1324 DD/ 1249 TD/TT: 08/10/25 1255 Flour Worker: [facility] External Provider IMG CT PROCEDURES Edited Result - Final * CT Head Stroke w/o Contrast (08/10/2025 12:42 PM EST) Anatomical Region Laterality Modality Computed Tomogra phy 08/10/2025 12:4 2 PM EST Narrative 08/10/2025 12:59 PM EST [place] [address] CT Scan Report Signed Patient: Tania Merida MR#: [id number] : 1980 Acct:[id number] Age/Sex: 44 / F ADM Date: 08/10/25 Loc: HO.ED Attending Dr: Ordering Physician: Kenia Johnson NP Date of Service: 08/10/25 Procedure(s): CT head for STROKE Accession Number(s): [id number] cc: Ally Rodriguez MD; Kenia Johnson NP Report Number: [id number]: Total DLP = 585.00 mGy-cm Reason for Exam: Stroke Protocol EXAMINATION: CT HEAD WITHOUT IV CONTRAST STROKE HISTORY: Stroke Protocol. TECHNIQUE: Unenhanced helical CT of the head was performed per standard departmental protocol. Coronal and sagittal reformats of the head were also evaluated. One or more of the following techniques was used for dose reduction: Automated exposure control, adjustment of the mA and/or kV according to patient size, use of iterative reconstruction technique. DLP: 585 mGy-cm COMPARISON: There are no prior studies available for comparison. FINDINGS: BRAIN: The brain parenchyma is unremarkable. There is normal luis/white differentiation. The ventricular system is normal in size and configuration. There is no mass effect or midline shift. No intra- or extra-axial fluid collections are identified. SINUSES: The visualized paranasal sinuses are clear. The mastoid air cells and middle ear cavities are well pneumatized. ORBITS: The visualized orbits are unremarkable. BONES/SOFT TISSUES: The extracranial soft tissues are unremarkable. The calvarium is intact. No suspicious lytic or sclerotic lesions. CT/CT head for STROKE IMPRESSION: Unremarkable unenhanced head CT. Findings were discussed with Dr. Ramos the emergency room on 08/10/2025 at 12:58 PM Electronically signed by: Spenser Hayden MD 08/10/2025 12:57 PM [facility] Dictated By: Spenser Hayden MD Signed By: <Electronically signed by Spenser Hayden MD in OV> 08/10/25 1257 DD/ 1242 TD/TT: 08/10/25 1245 Flour Worker: Procedure Note Donotuseinterpreter, Image - 08/10/[address] [address] [address] Scan Report Signed Patient: Celia Merida#: [id number] : 1980Acct:[id number] Age/Sex: 44 / FADM Date: 08/10/25 Loc: HO.ED Attending Dr: Ordering Physician: Kenia Johnson NP Date of Service: 08/10/25 Procedure(s): CT head for STROKE Accession Number(s): [id number] cc: Ally Rodriguez MD; Kenia Johnson NP Report Number: [id number]: Total DLP = 585.00 mGy-cm Reason for Exam: Stroke Protocol EXAMINATION: CT HEAD WITHOUT IV CONTRAST STROKE HISTORY: Stroke Protocol. TECHNIQUE: Unenhanced helical CT of the head was performed per standard departmental protocol. Coronal and sagittal reformats of the head were also evaluated. One or more of the following techniques was used for dose reduction: Automated exposure control, adjustment of the mA and/or kV according to patient size, use of iterative reconstruction technique. DLP: 585 mGy-cm COMPARISON: There are no prior studies available for comparison. FINDINGS: BRAIN: The brain parenchyma is unremarkable. There is normal luis/white differentiation. The ventricular system is normal in size and configuration. There is no mass effect or midline shift. No intra- or extra-axial fluid collections are identified. SINUSES: The visualized paranasal sinuses are clear. The mastoid air cells and middle ear cavities are well pneumatized. ORBITS: The visualized orbits are unremarkable. BONES/SOFT TISSUES: The extracranial soft tissues are unremarkable. The calvarium is intact. No suspicious lytic or sclerotic lesions. CT/CT head for STROKE IMPRESSION: Unremarkable unenhanced head CT. Findings were discussed with Dr. Ramos the emergency room on 08/10/2025 at 12:58 PM Electronically signed by: Spenser Hayden MD 08/10/2025 12:57 PM EST Dictated By: Spenser Hayden MD Signed By: <Electronically signed by Spenser Hayden MD in OV> 08/10/25 1257 DD/ 1242 TD/TT: 08/10/25 1245 Flour Worker: [facility] External Provider IMG CT PROCEDURES Edited Result - Final * (ABNORMAL) Urinalysis, Complete, with Reflex to Culture (06/23/2025 10:14 AM EST) Color Urine Yellow [facility] Appearance Urine Clear [facility] PH 5.5 5.0 - 9.0 [facility] Glucose Urine UA Negative Negative mg/dL [facility] Urine Blood Small (1+)(A) Negative [facility] Specific [place] - Urine 1.020 1.005 - 1.025 [facility] Urine Protein Negative Neg-Trace mg/dL [facility] Urine Ketones Negative Negative mg/dL [facility] Nitrite Urine Negative Negative [facility] Leukocyte Esterase Urine Negative Negative [facility] RBC Urine 0-2 0 - 2 /HPF [facility] Urine WBC 0-5 0 - 5 /HPF [facility] Urine Squamous Epithelial Cell 0-2 0 - 2 /HPF [facility] Urine Bacteria None Seen None Seen [facility] Hyaline Casts, Urine 0-2 0 - 2 /LPF [facility] 06/23/2025 10:1 4 AM EST 06/23/2025 11:23 AM EST Narrative [facility] - 06/23/2025 12:15 PM EST Urine, Clean Catch us Ally Lema MD LAB URINE ORDERABLES Final Result [facility] [address] [place] [phone] * (ABNORMAL) CBC auto differential (06/23/2025 10:14 AM EST) White Blood Count 8.7 4.8 - 10.8 X10*3/uL [facility] Red Blood Count 4.99 4.20 - 5.50 X10*6/uL [facility] Hemoglobin 10.7(L) 12.0 - 16.0 g/dl [facility] Hematocrit 36.4(L) 37.0 - 47.0 % [facility] Mean Corpuscular Volume 72.9(L) 80.0 - 98.0 fL [facility] Mean Corpuscular Hemoglobin 21.4(L) 27.0 - 33.0 pg [facility] Mean Corpuscular HGB Conc 29.4(L) 31.0 - 35.0 g/dl [facility] Red Cell Distribution Width 17.1(H) 11.0 - 16.0 % [facility] Platelet Count 424(H) 160 - 400 X10*3/uL [facility] Mean Platelet Volume 11.0 9.4 - 12.3 fL [facility] Neutrophils Percent Auto 46.6 45 - 73 % [facility] Imm Gran Pct Auto 0.3 0.0 - 0.4 % [facility] Lymphocytes Percent Auto 36.6 20 - 40 % [facility] Monocytes Percent Auto 6.8 2 - 11 % [facility] Eosinophils Percent Auto 8.9(H) 0 - 4 % [facility] Basophils Percent Auto 0.8 0 - 2 % [facility] NRBC Pct Auto 0.0 0.0 - 0.2 /100WBC [facility] Neutrophils Absolute Auto 4.0 2.0 - 8.3 x10*3/uL [facility] Imm Gran Abs Auto 0.03 0.00 - 0.03 X10*3/uL [facility] Lymphocytes Absolute Auto 3.2 1.2 - 4.9 X10*3/uL [facility] Monocytes Absolute Auto 0.6 0.1 - 1.2 X10*3/uL [facility] Eosinophils Absolute Auto 0.8(H) 0.0 - 0.4 X10*3/uL [facility] Basophils Absolute Auto 0.1 0.0 - 0.2 X10*3/uL [facility] NRBC Abs Auto 0.000 0.0 - 0.012 X10*3/uL [facility] 06/23/2025 10:1 4 AM EST 06/23/2025 11:16 AM EST us Generic External Data Provider LAB BLOOD ORDERAB LES Final Result [facility] [address] [place] [phone] * (ABNORMAL) Sed Rate by Modified Westergren (06/23/2025 10:14 AM EST) Erythrocyte Sedimentation Rate 25(H) 0 - 20 MM/HR [facility] Comment:Patients with polycy themia and many hemoglobin abnormalitiesmay have depressed sed rates whereas patients with anemiamay have elevated sed rates. 06/23/2025 10:1 4 AM EST 06/23/2025 11:16 AM EST us Generic External Data Provider LAB BLOOD ORDERAB LES Final Result Performing Organization Address [facility] Co de Phone Number [facility] [address] [place] [phone] * Culture, Urine, Routine (06/23/2025 10:14 AM EST) Urine Urine specimen obtained by clean catch procedure / Unknown 06/23/2025 10:14 AM EST 06/23/2025 11:23 AM EST Comment:CC Narrative [facility] - 06/24/2025 11:44 AM EST Strep agalactiae (Grp B) Quant 10,000 to 50,000 cfu/mL Susc N/A Susceptibility not routinely performed on this isolate. Specimen Source: Urine clean catch us Ally Lema MD LAB MICROBIOLOGY - [facility] ORDERABLES Final Result Performing Organization Address City/[facility]/ZIP Co de Phone Number [facility] [address] [place] [phone] * C-reactive Protein (06/23/2025 10:14 AM EST) C Reactive Protein 0.43 < or = 0.50 mg/dL [facility] 06/23/2025 10:1 4 AM EST 06/23/2025 11:16 AM EST us Generic External Data Provider LAB BLOOD ORDERAB LES Final Result [facility] [address] [place] [phone] * (ABNORMAL) Comprehensive Metabolic Panel (06/23/2025 10:14 AM EST) Sodium 140 135 - 145 mmol/L [facility] Potassium 3.9 3.3 - 5.1 mmol/L [facility] Chloride 106 96 - 108 mmol/L [facility] Carbon Dioxide 26 22 - 29 mmol/L [facility] Anion Gap 12 12 - 20 [facility] Urea Nitrogen (BUN) 11 9 - 16 mg/dL [facility] Creatinine, Serum 0.72 0.5 - 1.4 mg/dL [facility] Estimated Glomerular Filt Rate >60 [facility] Comment:Chronic Kidney Disea se: Estimated GFR < 60 mL/min/1.85r9[place] Kidney Disease: Estimated GFR < 15 mL/min/1.73m2 Glucose 83 60 - 115 mg/dL [facility] Calcium 9.3 8.4 - 10.2 mg/dL [facility] Bilirubin, Total 0.4 0.0 - 1.0 mg/dL [facility] Aspartate Amino Transferase 31 5 - 31 U/L [facility] Alanine Aminotransferase 40(H) 0 - 31 U/L [facility] Total Protein 8.6(H) 6.5 - 8.0 g/dL [facility] Albumin Level 4.3 3.5 - 5.0 g/dL [facility] Alkaline Phosphatase 85 39 - 117 U/L [facility] 06/23/2025 10:1 4 AM EST 06/23/2025 11:16 AM EST us Generic External Data Provider LAB BLOOD ORDERAB LES Final Result Performing Organization Address [facility]/ZIP Co de Phone Number [facility] [address] [place] [phone] * OCT, Retina - OU - Both Eyes (05/13/2025 9:00 AM EDT) Narrative Brittny Lomas, OD - 05/20/2025 2:38 PM EDT Images [...] Lomas OD OPHTH TOMOGRAPHY Final Result * Hepatitis Panel, General (04/27/2025 11:07 AM EDT) Hepatitis A IgM Nonreactive Nonreactive [facility] Comment:IgM antibodies to ASHBY V not detected; does not exclude earlyacute or recovered HAV infection. ~Hepatitis B Surface Antibody REACTIVE Nonreactive [facility] Comment:REACTIVE: > 11.99 mI U/mL Hepatitis B Core Antibody Nonreactive Nonreactive [facility] Hepatitis C Antibody Nonreactive Nonreactive [facility] Comment:Antibodies to HCV no t detected; does not exclude early acuteHCV infection. Hepatitis B Surface Ag Negative Negative [facility] 04/27/2025 11:0 7 AM EDT 04/27/2025 6:13 PM EDT us Generic External Data Provider LAB BLOOD ORDERAB LES Final Result [facility] [address] [place] [phone] * HPV DNA, Low/High Risk (03/23/2025 11:14 AM EDT) HPV High Risk Negative Negative [facility] HPV Genotype 16 Negative Negative [facility] HPV Genotype 18 Negative Negative [facility] Comment:HPV testing performe d at [facility] (CLIA#[id number] [address].Testing for HPV was performed using the Michael [...] Lema MD LAB BLOOD ORDERABLES Final Result [facility] [address] [place] [phone] * Pap Smear (03/23/2025 11:14 AM EDT) Swab 03/23/2025 11:1 4 AM EDT 03/24/2025 7:45 AM EDT Narrative [facility] - 03/28/2025 12:11 PM EDT ----- ------- Name: FrederickNolanrita Age/Sex: 44/F : 1980 Unit#: [id number] Attend Dr: Ally Rodriguez MD Re03/23/25 Status: DEP [facility] ----- ------- SPEC : [id number] RECD: 03/24/25 STATUS: RUBIN PRATHER NUM: [id number] PIPO: 03/23/[address] [facility] [address]: Ally Rodriguez MD ENTERED: 03/24/25 SP TYPE: Pap Smr OT DR: ORDERED: Pap Smear Interpretation Satisfactory for [...] and HPV testing will be performed at [facility] (CLIA #[id number]), [address] [place] [address]. Testing for HPV was performed using the [...] detected. All professional services are performed by [facility] ([address] [place] [address], [place] [address]; ; CLIA #[id number]). The PAP Test is a screening procedure with the inherent possibility of both false negative and false positive results. Results should be interpreted in the context of historic and current clinical findings. Reliability of the PAP Test is enhanced by performing the test on a regular repetitive basis. CONTINUED ON NEXT PAGE ----- ------- Name: Tania Mack Age/Sex: 44/F : 1980 Unit#: [id number] Attend Dr: Ally Rodriguez MD Re03/23/25 Status: DEP REF Location: HO.HHCLNP Disch: ----- ------- SPEC : [id number] RECD: 03/24/25 STATUS: SOUMegha PRATHER NUM: [id number] PIPO: 03/23/[address] [facility] [address]: Ally Rodriguez MD ENTERED: 03/24/257135 SP TYPE: Pap Juan Carlos MONTIEL DR: ORDERED: Pap Smear ----- ------- Signed (signature on file) LEONIDES Sharma ([facility]) 03/28/25 1211 ----- ------- END OF REPORT Ally Lema MD LAB CYTOLOGY ORDERABL ES Final Result [facility] [address] [place] [phone] * POCT HGB A1C (12/02/2024 3:10 PM EDT) Hemoglobin A1C 5.9 4.0 - 6.0 % QC Media Lot # [id number] Lot# Expiration Date Blood 12/02/2024 3:10 PM EDT Ally Lema MD POINT OF CARE TEST EN TER/EDIT ORDERABLES Final Result * (ABNORMAL) Lipid Panel with Reflex to Direct LDL (04/01/2024 2:43 PM EDT) Triglycerides 173(H) <150 mg/dL [facility] Comment:Desirable Triglyceri de: less than 150 mg/dLBorderline High Triglyceride 150-199 mg/dLHigh Triglyceride: 200-499 mg/dLVery High Triglyceride: greater than or equal to 5OO mg/dL Cholesterol 163 <200 mg/dL [facility] Comment:Desirable Cholestero l: less than 200 mg/dLBorderline High Cholesterol: 200-239 mg/dLHigh Cholesterol: greater than 239 mg/dL LDL Cholesterol Calculated 90 <100 mg/dL [facility] Comment:Desirable LDL: less than 100 mg/dLNear Optimal/Above Optimal LDL: 110- 129 mg/dLBorderline High LDL: 130-159 mg/dLHigh LDL: 160-189 mg/dLVery High LDL: greater than or equal to 190 mg/dL HDL Cholesterol 39(L) >40 mg/dL [facility] Comment:Desirable HDL: great er than 40 mg/dL Note: This HDL assay may give artificially low results in patients with liver disease. Blood 04/01/2024 2:43 PM EDT 04/01/2024 4:00 PM EDT us Ally Lema MD LAB BLOOD ORDERABLES Final Result Performing Organization Address [facility]/ZIP Co de Phone Number [facility] [address] [place] [phone] * HIV-1/2 Antigen and Antibodies, Fourth Generation, with Reflexes (04/01/2024 2:43 PM EDT) HIV AB/AG Nonreactive Nonreactive [facility] Comment:HIV-1 p24 Ag and/or HIV-1/HIV-2 Ab not detected.A test result that is nonreactive does not exclude thepossibility of exposure to or infection with HIV-1 and/orHIV-2. Nonreactive results in this assay for individualswith prior exposure to HIV-1 and/or HIV-2 may be due toantigen and antibody levels that are below the limit ofdetection of this assay.The [employer] HIV Ag/Ab Combo assay result andsupplemental assay results should be interpreted inconjunction with the patient's clinical presentation,history and other laboratory results. If the results areinconsistent with clinical evidence, additional testing issuggested to confirm the result. Blood Venous blood specimen / Unknown 04/01/2024 2:43 PM EDT 04/01/2024 3:54 PM EDT us Ally Lema MD LAB BLOOD ORDERABLES Final Result Performing Organization Address [facility]/ZIP Co de Phone Number [facility] [address] [place] [phone] * Albumin, Random Urine W/Creatinine (07/02/2023 10:38 AM EST) Creatinine, Urine 69.16 mg/dL [facility] Microalbumin Urine <5.0 mg/L [facility] Microalbum Creatinine Ratio Ur TNP <30 ug/mg cr [facility] Comment:Unable to calculate albumin/creatinine ratio due to lowmicroalbumin or creatinine result. 07/02/2023 10:3 8 AM EST 07/02/2023 11:04 AM EST us Ally Lema MD LAB URINE ORDERABLES Final Result [facility] [address] [place] [phone] * BI Mammogram Screening Tomosynthesis Bilateral (02/24/2023 9:40 AM EDT) Anatomical Region Laterality Modality Breast Bilateral Mammography 02/24/2023 9:40 AM EDT Narrative 03/15/2023 2:12 PM EDT [address] [place] [address] Mammography Report Signed Patient: Tania Mack MR#: [id number] : 1980 Acct:[id number] Age/Sex: 42 / F ADM Date: 02/24/23 Loc: HO.MAMMO Attending Dr: Ally Lema MD Ordering Physician: Ally Rodriguez MD Results: Date of Service: 02/24/23 Follow Up: Procedure(s): MM tomosynthesis screening BI Accession Number(s): [id number] cc: Ally Rodriguez MD EXAMINATION: MM SCREENING [...] in OV> 03/15/23 1409 DD/ 0940 TD/TT: Flour Worker: Procedure Note Donotuseinterpreter, Image - 03/15/2023 [facility] [address] [place] [address] Mammography Report Signed Patient: Celia Mack#: [id number] : 1980Acct:[id number] Age/Sex: 42 / FADM Date: 02/24/23 Loc: HO.MAMMO Attending Dr: Ally Lema MD Ordering Physician: Ally Rodriguez MDResults: Date of Service: 02/24/23Follow Up: Procedure(s): MM tomosynthesis screening BI Accession Number(s): [id number] cc: Ally Rodriguez MD EXAMINATION: MM SCREENING [...] in OV> 03/15/23 1409 DD/ 0940 TD/TT: Flour Worker: Ally Lema MD IMG BI PROCEDURES Pablito pebbles Result - Final from Last 3 Months or Most Recently Relevant to Health Maintenance Additional Health Concerns Active Problems Noted Date Diagnosed Date Help patients manage their type 2 diabetes 07/08 Weekly blood pressure task 07/08/2025 Help patients manage their type 2 diabetes 07/08 Patient has chronic kidney disease 07/08/2025 Weekly blood pressure task 07/08/2025 Patient has chronic kidney disease 07/08/2025 [employer] C3 Care Teams Talent Scout Relationship Specialty Start Date End Date Ally Rodriguez MD [address] [place] [phone] PCP - General Family Medicine 07/02/19
--- OUTSIDE RECORDS SUMMARY | 2025-08-10 13:32 | XMS_ITS | Encounter Summary ---
Author Organization [employer] Address [address] [facility] [address] [place] [address] Care Team Providers Care Weatherization And Housing Inspector Name Role Phone Ally Rodriguez MD Primary Care Provide r Reason for Visit * Reason Comments Med Refill Encounter Details Date Type Department Care Team (Late Contact Info) Description 03/18/2023 Refill [facility] MED & PEDS [address] [place], [place] [phone] Disha Fabian MD [address] [place], [place] [phone] Anxiety Social History Tobacco Use Types Packs/Day [...] Office Visit [facility] OPTOMETRY [address] [place], [place] [phone] Brittny Lomas, OD [address] [place], [place] [phone] 09/26/2025 9:00 AM EST Office Visit [facility] MEDICINE [address] [place] [address] Ally Rodriguez MD [address] [place] [address] documented as of this encounter Visit Diagnoses Diagnosis Anxiety Anxiety state, unspecified documented in this encounter Additional Health Concerns Assessment Noted Time PHQ-9 Depression Total Score: 15 023 10:50 AM EDT documented as of this encounter Care Teams Weatherization And Housing Inspector Relationship Specialty Start Date End Date Ally Rodriguez MD [address] [place] [phone] PCP - General Family Medicine 07/02/19 documented as of this encounter
--- OUTSIDE RECORDS SUMMARY | 2025-08-10 13:32 | XMS_ITS | Encounter Summary ---
Author Organization [employer] Address [address] [facility] 7t [place] [address] Care Team Providers Care Change Analyst Name Role Phone Ally Rodriguez MD Primary Care Provide r Encounter Details Date Type Department Care Team (Latest Contact Info) Description 03/06/[address] [facility] CONVERSIONS Dental, Provider, DDS Social History Tobacco [...] Visit [facility] OPTOMETRY [address] [place] [address] Abebe, Brittny, OD [address] [place] [address] 09/26/2025 9:00 AM EST Office Visit [facility] MEDICINE [address] [place] [address] Ally Rodriguez MD [address] [place] [address] documented as of this encounter Visit Diagnoses Not on filedocumented in this encounter Care Teams Change Analyst Relationship Specialty Start Date End Date Ally Rodriguez MD [address] [place] [address] PCP - General Family Medicine 07/02/19 documented as of this encounter
--- OUTSIDE RECORDS SUMMARY | 2025-08-10 13:32 | XMS_ITS | Encounter Summary ---
Author Organization [employer] Address [address] [facility] [address] [place] [address] Care Team Providers Care Space Planner Name Role Phone Ally Rodriguez MD Primary Care Provide r Reason for Visit * Reason Comments Med Refill Encounter Details Date Type Department Care Team (Late st Contact Info) Description 08/07/2025 Refill [facility] MEDICINE [address] [place], [place] [phone] Ally Rodriguez MD [address] [place], [place] [phone] Anxiety Social History Tobacco Use Types Packs/Day [...] your housing situation today? I have esau atm 12/02/[address] you li [...] Description 09/12/2025 11:30 AM EST Office Visit [facility] OPTOMETRY [address] [place] [address] Abebe, Brittny, OD [address] [place] [address] 09/26/2025 9:00 AM EST Office Visit [facility] MEDICINE [address] [place] [address] Ally Rodriguez MD [address] [place] [address] documented as of this encounter Goals Goal Patient Goal Type Associated Problems Recent Progress Patient-Stated? Author Help patients manage their type 2 diabetes Care Plan Help patients manage their type 2 diabetes Jade Paniagua [place] Weekly blood pressure task Care Plan Weekly blood pressure task No Jade Franco [place] Help patients manage their type 2 diabetes Care Plan Help patients manage their type 2 diabetes Jade Paniagua [place] Patient has chronic kidney disease Care Plan Patient has chronic kidney disease Jade Paniagua [place] Weekly blood pressure task Care Plan Weekly blood pressure task Jade Paniagua [place] Patient has chronic kidney disease Care Plan Patient has chronic kidney disease No Jade Franco [place] documented as of this encounter Visit Diagnoses Diagnosis Anxiety Anxiety state, unspecified documented in this encounter Additional Health Concerns Active Problems Noted Date Diagnosed Date Help patients manage their type 2 diabetes 07/08 Weekly blood pressure task 07/08/2025 Help patients manage their type 2 diabetes 07/08 Patient has chronic kidney disease 07/08/2025 Weekly blood pressure task 07/08/2025 Patient has chronic kidney disease 07/08/2025 Assessment Noted Time PHQ-9 Depression Total Score: 0 06/22/20 25 10:02 AM EST documented as of this encounter Care Teams Space Planner Relationship Specialty Start Date End Date Ally Rodriguez MD [address] [place] [address] PCP - General Family Medicine 07/02/19 documented as of this encounter
--- OUTSIDE RECORDS SUMMARY | 2025-08-10 13:32 | XMS_ITS | Encounter Summary ---
Author Organization [employer] Address [address] [place] [address] [address] [place] [address] Care Team Providers Care Job Placement Counselor Name Role Phone Ally Rodriguez MD Primary Care Provide r Reason for Visit * Reason Comments Med Refill Encounter Details Date Type Department Care Team (Late Contact Info) Description 12/05/2022 Refill [facility] MEDICINE [address] [place], [place] [phone] Yonatan Ross MD [address] [place] [address] Type 2 diabetes mellitus without complication, without long-term current use of insulin ([facility]); Essential hypertension Social History Tobacco [...] Description 09/12/2025 11:30 AM EST Office Visit [facility] OPTOMETRY [address] [place], [place] [phone] Brittny Lomas, OD [address] [place] [address] 09/26/2025 9:00 AM EST Office Visit [facility] MEDICINE [address] [place] [address] Ally Rodriguez MD [address] [place], [place] [phone] documented as of this encounter Visit Diagnoses Diagnosis Type 2 diabetes mellitus without complication, without long-term current use of insulin (HCC) Essential hypertension Unspecified essential hypertension documented in this encounter Care Teams Job Placement Counselor Relationship Specialty Start Date End Date Ally Rodriguez MD [address] [place] [address] PCP - General Family Medicine 07/02/19 documented as of this encounter
--- OUTSIDE RECORDS SUMMARY | 2025-08-10 13:32 | XMS_ITS | Encounter Summary ---
Author Organization [employer] Address [address] [facility] 7t [place] [address] Care Team Providers Care Fire Extinguisher Charger Name Role Phone Ally Rodriguez MD Primary Care Provide r Reason for Visit * Reason Comments Med Refill Encounter Details Date Type Department Care Team (Late Contact Info) Description 01/16/2023 Refill [facility] MEDICINE [address] [place], [place] [phone] Ally Rodriguez MD [address] [place], [place] [phone] Moderate persistent asthma without complication Social History [...] Description 09/12/2025 11:30 AM EST Office Visit [facility] OPTOMETRY [address] [place], [place] [phone] Brittny Lomas, OD [address] [place], [place] [phone] 09/26/2025 9:00 AM EST Office Visit [facility] MEDICINE [address] [place], [place] [phone] Ally Rodriguez MD [address] [place], [place] [phone] documented as of this encounter Visit Diagnoses Diagnosis Moderate persistent asthma without complication documented in this encounter Additional Health Concerns Assessment Noted Time PHQ-9 Depression Total Score: 15 023 10:50 AM EDT documented as of this encounter Care Teams Fire Extinguisher Charger Relationship Specialty Start Date End Date Ally Rodriguez MD [address] [place] [address] [phone] PCP - General Family Medicine 07/02/19 documented as of this encounter
--- OUTSIDE RECORDS SUMMARY | 2025-08-10 13:32 | XMS_ITS | Encounter Summary ---
Author Organization [employer] Address [address] [facility] 7t [place] [address] Care Team Providers Care Hiv/Aids Care Nurse Name Role Phone Ally Rodriguez MD Primary Care Provide r Encounter Details Date Type Department Care Team (Late st Contact Info) Description 08/10/2025 Orders Only [facility] External Provider, [facility] Social History Tobacco Use Types Packs/Day Years [...] Description 09/12/2025 11:30 AM EST Office Visit [facility] OPTOMETRY [address] [place] [address] Abebe, Brittny, OD 230 [place] [address] 09/26/2025 9:00 AM EST Office Visit [facility] MEDICINE [address] [place] [address] Ally Rodriguez MD [address] [place] [address] documented as of this encounter Goals Goal [...] has chronic kidney disease Jade Paniagua [place] documented as of this encounter Procedures Procedure Name Priority Date/Time Associated Diagnosis Comments GLUCOSE, WHOLE BLOOD Routine 08/10/2025 1:05 PM EST PROTHROMBIN TIME WHOLE BLD POC Routine 08/10/2025 1:05 PM EST ~PT, ~INR - ANTI COAG CLINIC Routine 08/10/2025 1:05 PM EST CTA HEAD STROKE W AND WO CONTRAST Routine 08/10/2025 12:[address] HEAD STROKE WO CONTRAST Routine 08/10/2025 12:42 PM EST documented in this encounter Results * Glucose, Whole Blood (08/10/2025 1:05 PM EST) Pathologist [facility] Glucose, Whole Blood 88 60 - 115 mg/dL [facility] Comment:METER #: [id number] 08/10/2025 1:05 PM EST 08/10/2025 1:16 PM EST us Generic External Data Provider LAB BLOOD ORDERAB LES Final Result Performing Organization Address City/[facility]/ZIP Co de Phone Number [facility] [address] [place] [phone] * PROTHROMBIN TIME WHOLE BLD POC (08/10/2025 1:05 PM EST) [facility] Protime 12.6 11.1 - 13.5 sec [facility] 08/10/2025 1:05 PM EST 08/10/2025 1:14 PM EST Generic External Data Provider LAB BLOOD ORDERAB LES Final Result Performing Organization Address City/[facility]/ZIP Co de Phone Number [facility] [address] [place] [phone] * ~PT, ~INR - ANTI COAG CLINIC (08/10/2025 1:05 PM EST) Pathologist [facility] Prothrombin Time INR 1.0 0.9 - 1.1 [facility] Comment:METER #: [id number] TERNATIONAL NORMALIZED RATIO (INR) REFERENCE RANGES Reference [...] ORDERAB LES Final Result Performing Organization Address City/State/[facility] Co de Phone Number [facility] [address] [place] [phone] * CTA Head Stroke w/ and w/o Contrast (08/10/2025 12:49 PM EST) Anatomical Region Laterality Modality Computed Tomogra phy 08/10/2025 12:4 9 PM EST Narrative 08/10/2025 1:27 PM EST [address] [address] [address] Scan Report Signed Patient: Tania Merida MR#: [id number] : 1980 Acct:[id number] Age/Sex: 44 / F ADM Date: 08/10/25 Loc: .ED Attending Dr: Ordering Physician: Kenia Johnson NP Date of Service: 08/10/25 Procedure(s): CT angio head neck STROKE Accession Number(s): [id number] cc: Ally Rodriguez MD; Kenia Johnson NP Report Number: [id number]: Total DLP = 621.00 mGy-cm Reason for [...] by: Donaldo Corbin MD 08/10/2025 01:24 PM [facility] Dictated By: Donaldo Corbin MD Signed By: <Electronically signed by Donaldo Corbin MD in OV> 08/10/25 1324 DD/ 1249 TD/TT: 08/10/25 1255 Leather Coater: [facility] [place] Procedure Note Donotuseinterpreter, Image - 08/10/[address] [place] [address] [address] Scan Report Signed Patient: Celia Merida#: [id number] : 1980Acct:[id number] Age/Sex: 44 / FADM Date: 08/10/25 Loc: .ED Attending Dr: Ordering Physician: Kenia Johnson NP Date of Service: 08/10/25 Procedure(s): CT angio head neck STROKE Accession Number(s): [id number] cc: Ally Rodriguez MD; Kenia Johnson NP Report Number: [id number]: Total DLP = 621.00 mGy-cm Reason for [...] 08/10/25 1324 DD/ 1249 TD/TT: 08/10/25 1255 Leather Coater: [facility] External Provider IMG CT PROCEDURES Edited Result - Final * CT Head Stroke w/o Contrast (08/10/2025 12:42 PM EST) Anatomical Region Laterality Modality Computed Tomogra phy 08/10/2025 12:4 2 PM EST Narrative 08/10/2025 12:59 PM EST [place] [address] CT Scan Report Signed Patient: Tania Merida MR#: [id number] : 1980 Acct:[id number] Age/Sex: 44 / F ADM Date: 08/10/25 Loc: HO.ED Attending Dr: Ordering Physician: Kenia Johnson NP Date of Service: 08/10/25 Procedure(s): CT head for STROKE Accession Number(s): [id number] cc: Ally Rodriguez MD; Kenia Johnson NP Report Number: [id number]: Total DLP = 585.00 mGy-cm Reason for [...] by: Spenser Hayden MD 08/10/2025 12:57 PM [facility] Dictated By: Spenser Hayden MD Signed By: <Electronically signed by Spenser Hayden MD in OV> 08/10/25 1257 DD/ 1242 TD/TT: 08/10/25 1245 Leather Coater: Procedure Note Donotuseinterpreter, Image - 08/10/[address] [place] [address] [address] Scan Report Signed Patient: Celia Merida#: [id number] : 1980Acct:[id number] Age/Sex: 44 / FADM Date: 08/10/25 Loc: HO.ED Attending Dr: Ordering Physician: Kenia Johnson NP Date of Service: 08/10/25 Procedure(s): CT head for STROKE Accession Number(s): [id number] cc: Ally Rodriguez MD; Kenia Johnson NP Report Number: [id number]: Total DLP = 585.00 mGy-cm Reason for [...] 08/10/25 1257 DD/ 1242 TD/TT: 08/10/25 1245 Leather Coater: [facility] External Provider IMG CT PROCEDURES Edited Result - Final documented in this encounter Visit Diagnoses Not on filedocumented in this encounter Additional Health Concerns Active [...] documented as of this encounter Care Teams Hiv/Aids Care Nurse Relationship Specialty Start Date End Date Ally Rodriguez MD [address] [place] [address] PCP - General Family Medicine 07/02/19 documented as of this encounter
--- OUTSIDE RECORDS SUMMARY | 2025-08-10 13:32 | XMS_ITS | Encounter Summary ---
Author Organization [employer] Address [address] [facility] 7t [place] [address] Care Team Providers Care Lacquer Sprayer Name Role Phone Ally Rodriguez MD Primary Care Provide r Reason for Visit * Reason Comments Med Refill Encounter Details Date Type Department Care Team (Late st Contact Info) Description 11/10/2023 Refill [facility] [address] [place], [place] [phone] Aravind Simpson DDS [address] [place], [place] [phone] Social History Tobacco Use Types Packs/Day Years [...] Description 09/12/2025 11:30 AM EST Office Visit [facility] OPTOMETRY [address] [place] [address] Abebe, Brittny, OD [address] [place] [address] 09/26/2025 9:00 AM EST Office Visit [facility] MEDIC[facility] [address] [place] [address] Ally Rodriguez MD [address] [place] [address] documented as of this encounter Visit Diagnoses Not on filedocumented in this encounter Additional Health Concerns Assessment Noted Time PHQ-9 Depression Total Score: 15 023 10:50 AM EDT documented as of this encounter Care Teams Lacquer Sprayer Relationship Specialty Start Date End Date Ally Rodriguez MD [address] [place] [address] PCP - General Family Medicine 07/02/19 documented as of this encounter
--- OUTSIDE RECORDS SUMMARY | 2025-08-10 13:32 | XMS_ITS | Encounter Summary ---
Author Organization [employer] Address [address] [facility] 7t [place] [address] Care Team Providers Care Forder Operator Name Role Phone Ally Rodriguez MD Primary Care Provide r Reason for Visit * Reason Comments Med Refill Encounter Details Date Type Department Care Team (Late Contact Info) Description 01/16/2023 Refill [facility] MEDICINE [address] [place], [place] [phone] Name, MD Darshan [address] [place] [address] Chronic low back pain, unspecified back pain [...] Description 09/12/2025 11:30 AM EST Office Visit [facility] OPTOMETRY [address] [place], [place] [phone] Brittny Lomas, OD [address] [place], [place] [phone] 09/26/2025 9:00 AM EST Office Visit [facility] MEDICINE [address] [place], [place] [phone] Ally Rodriguez MD [address] [place], [place] [phone] documented as of this encounter Visit Diagnoses Diagnosis Chronic low back pain, unspecified back pain laterality, unspecified whether sciatica present documented in this encounter Additional Health Concerns Assessment Noted Time PHQ-9 Depression Total Score: 15 023 10:50 AM EDT documented as of this encounter Care Teams Forder Operator Relationship Specialty Start Date End Date Ally Rodriguez MD [address] [place] [address] [phone] PCP - General Family Medicine 07/02/19 documented as of this encounter
--- OUTSIDE RECORDS SUMMARY | 2025-08-10 13:32 | XMS_ITS | Encounter Summary ---
Author Organization [employer] Address [address] [facility] 7t [place] [address] Care Team Providers Care Rope Machine Setter Name Role Phone Ally Rodriguez MD Primary Care Provide r Encounter Details Date Type Department Care Team (Late Contact Info) Description 02/25/2023 Orders Only [facility]ED[facility] [address] [place] [address] Siri Grant LPN Social History Tobacco Use [...] 11:30 AM EST Office Visit [facility] OPTOMETRY [address] [place] [address] Brittny Lomas OD [address] [place], [place] [phone] 09/26/2025 9:00 AM EST Office Visit [facility] MEDICINE [address] [place] [address] Ally Rodriguez MD [address] [place] [address] documented as of this encounter Visit Diagnoses Not on filedocumented in this encounter Additional Health Concerns Assessment Noted Time PHQ-9 Depression Total Score: 15 023 10:50 AM EDT documented as of this encounter Care Teams Rope Machine Setter Relationship Specialty Start Date End Date Ally Rodriguez MD [address] [place] [address] PCP - General Family Medicine 07/02/19 documented as of this encounter
--- OUTSIDE RECORDS SUMMARY | 2025-08-10 13:32 | XMS_ITS | Encounter Summary ---
Author Organization [employer] Address [address] [facility] 7t [place] [address] Care Team Providers Care Cleaner Housekeeping Name Role Phone Ally Rodriguez MD Primary Care Provide r Reason for Visit * Reason Comments Med Refill Encounter Details Date Type Department Care Team (Late st Contact Info) Description 07/15/2023 Refill [facility] MEDICINE [address] [place], [place] [phone] Whitney Robins MD [address] [place], [place] [phone] Chronic low back pain, unspecified back pain [...] Description 09/12/2025 11:30 AM EST Office Visit [facility] OPTOMETRY [address] [place], [place] [phone] Brittny Lomas, OD 230 [place] [address] 09/26/2025 9:00 AM EST Office Visit [facility] MEDICINE [address] [place] [address] Ally Rodriguez MD [address] [place] [address] documented as of this encounter Visit Diagnoses Diagnosis Chronic low back pain, unspecified back pain laterality, unspecified whether sciatica present documented in this encounter Additional Health Concerns Assessment Noted Time PHQ-9 Depression Total Score: 15 023 10:50 AM EDT documented as of this encounter Care Teams Cleaner Housekeeping Relationship Specialty Start Date End Date Ally Rodriguez MD [address] [place] [address] PCP - General Family Medicine 07/02/19 documented as of this encounter
--- OUTSIDE RECORDS SUMMARY | 2025-08-10 13:32 | XMS_ITS | Encounter Summary ---
Author Organization [employer] Address [address] [facility] 7t [place] [address] Care Team Providers Care Spinner Operator Name Role Phone Ally Rodriguez MD Primary Care Provide r Reason for Visit * Reason Comments Med Refill Encounter Details Date Type Department Care Team (Late st Contact Info) Description 06/17/2023 Refill [facility] MED[facility] [address] [place], [place] [phone] Ally Rodriguez MD [address] [place], [place] [phone] Anxiety Social History Tobacco Use Types Packs/Day [...] Description 09/12/2025 11:30 AM EST Office Visit [facility] OPTOMETRY [address] [place] [address] Brittny Lomas, OD [address] [place] [address] 09/26/2025 9:00 AM EST Office Visit [facility] MEDICINE [address] [place] [address] Ally Rodriguez MD [address] [place] [address] documented as of this encounter Visit Diagnoses Diagnosis Anxiety Anxiety state, unspecified documented in this encounter Additional Health Concerns Assessment Noted Time PHQ-9 Depression Total Score: 15 023 10:50 AM EDT documented as of this encounter Care Teams Spinner Operator Relationship Specialty Start Date End Date Ally Rodriguez MD [address] [place] [address] PCP - General Family Medicine 07/02/19 documented as of this encounter
[2025-08-10 13:33] LABS: MANUAL DIFF FLAG NO
[2025-08-10 13:39] LABS: INTERNATIONAL NORM RATIO 1.2 (0.9-1.1); Prothrombin Time 14.3 SEC (11.2-13.5)
[2025-08-10 13:42] LABS: Partial Thromboplastin Time 30.5 SEC (26.7-34.1); Stroke Lab Use COMPLETE
[2025-08-10 13:56] LABS: Anion Gap 12 (12-20); Blood Urea Nitrogen 10 mg/dL (9-16); Calcium 9.0 mg/dL (8.4-10.2); Carbon Dioxide 23 mmol/L (22-29); Chloride 105 mmol/L (96-108); Cholesterol 139 mg/dL (<200); Creatinine Clr Calc Pharmacy 75.1; Estimated Glomerular Filt Rate > 60; HDL Cholesterol 34 mg/dL (>40); Potassium 4.1 mmol/L (3.3-5.1); Sodium 136 mmol/L (135-145); Triglycerides 104 mg/dL (<150)
[2025-08-10 14:04] LABS: Troponin-I High Sensitivity < 2.7 ng/L (<3.5-17.0)
[2025-08-10 16:10] VITALS: BP 163/85; PULSE 75; RESP 16; TEMP 36.3; O2SAT 99
== END 2025-08-10 16:11 | disposition home or self-care (01) ==
PROVIDERS: Registered Nurse Emergency; Emergency Provider Emergency Medicine; PCP Internal Medicine
DX: G51.0 Bell's palsy (principal); R29.702 NIHSS score 2; M06.00 Rheumatoid arthritis without rheumatoid factor, unspecified site; Z79.899 Other long term (current) drug therapy
CPT/HCPCS: 36415; 70450; 70496; 70498; 70551; 80048; 80061; 82947; 84484; 85025; 85610; 85730; 93005; 99285; Q9967

== ENCOUNTER → 2025-08-10 12:39 | Outpatient (BNV) | payer MEDICAID, SELFPAY | PROVIDERS: Emergency Provider Emergency Medicine; PCP Internal Medicine; Visit Provider Internal Medicine Cardiovascular Disease | DX: Z13.6 Encounter for screening for cardiovascular disorders (principal) | CPT/HCPCS: 93010 ==

== ENCOUNTER → 2025-08-10 12:39 | Outpatient (BNV) | payer MEDICAID, SELFPAY | PROVIDERS: Emergency Provider Emergency Medicine; PCP Internal Medicine; Visit Provider Radiology Diagnostic Radiology | DX: G51.0 Bell's palsy (principal); R51.9 Headache, unspecified | CPT/HCPCS: 70450; 70496; 70498; 70551 ==